=== PATIENT | female | born 1965 | race Caucasian/White ===

== ENCOUNTER 2017-12-23 01:03 | Outpatient (CLI) | payer MEDICARE, SELFPAY ==
--- NOTE | 2017-12-23 08:30 | DI.MAMMO_ITS ---
SYMPTOMS/DIAGNOSIS: SCREENING, Z12.31 MAMMOGRAM: Mammograms were interpreted according to the usual protocol including computer analysis with CAD system, tomosynthesis and C view imaging. The breasts are heterogeneously dense. No dominant mass or clumped intramammary microcalcification is seen. Current examination is compared with the previous examinations including July 2015 and there has been no gross interval change in appearance in comparison with the previous studies. CONCLUSION: No specific evidence of malignancy at this time. Routine screening examinations are suggested at yearly intervals due to the family history of breast carcinoma. Category 1, breast density category C. MQSA ASSESSMENT OF FINDINGS: Negative. Category 1. Patient will receive a letter notifying them of these results. Bi-RADS category C. The breasts are heterogeneously dense, which may obscure small masses.
== END 2017-12-23 01:23 ==
PROVIDERS: PCP Family Medicine; Visit Provider Family Medicine
DX: Z12.31 Encounter for screening mammogram for malignant neoplasm of breast (principal)
CPT/HCPCS: 77063; 77067

== ENCOUNTER 2018-02-05 02:55 | Outpatient (CLI) | payer OTHER, SELFPAY | END 2018-02-05 03:15 | PROVIDERS: PCP Family Medicine; Visit Provider Pediatrics Pediatric Rheumatology | DX: J44.9 Chronic obstructive pulmonary disease, unspecified (principal); Z02.71 Encounter for disability determination | CPT/HCPCS: 94060 ==

== ENCOUNTER 2018-03-13 07:39 | Inpatient (IN) | payer MEDICARE, SELFPAY ==
[2018-03-13] VITALS (115 sets, daily range): BP systolic 88–159; BP diastolic 41–99; PULSE 61–142; RESP 1–44; TEMP 36.8–38.5; O2SAT 89–100
[2018-03-13] MEDS: Albuterol/Ipratropium 3 ML UPD VIAL (07:58)
[2018-03-13 08:03] LABS: Abs Immature Grans 0.06 k/cumm (0.0-0.09); Absolute Neutrophil Count 15.87 k/cumm (1.2-6.7); Basophils % 0.1; HCT 43.6 % (36.0-46.0); HGB 15.1 g/dL (12.0-15.5); Immature Grans % 0.3; Lymphocytes % 3.7; Mean Corp. HGB Concentration 34.6 g/dL (32.0-36.0); Mean Corpuscular Hemoglobin 31.5 pg (27.0-33.0); Mean Platelet Volume 9.4 fL (8.0-11.0); Monocytes % 6.2; Neutrophils % 89.7; Platelet Count 269 x1000/uL (130-400); RBC 4.79 m/cumm (4.00-5.20); RBC Distribution Width 12.2 % (11.7-14.6); White Blood Cell Count 17.69 k/cumm (4.4-10.8)
[2018-03-13 08:04] LABS: Absolute Basophil Count 0.02 k/cumm (0.0-0.2); Absolute Lymphocyte Count 0.65 k/cumm (1.2-3.4)
--- NOTE | 2018-03-13 08:15 | W.ED.GENAD ---
Discharge Plan Disposition Patient Disposition: [facility] INPATIENT Condition: Stable Discharge Details Chief Complaint: RespSymp Clinical Impression: Influenza A, Acute respiratory distress, Acute exacerbation of chronic obstructive pulmonary disease (COPD), Fever Reason For Visit: INFLUENZA,ACUTE RESP,ACUTE COPD EXACERBATION Admit Date/Time: 03/13/18 10:36 Admit Provider: Varsha Ang Attending Provider: Varsha Ang Primary Care Provider: Gay Cooper ED Provider: Karen Ontiveros Discharge Data Discharge Date/Time-TO BE ENTERED AT DEPARTURE: 03/13/18 14:33 Medical Decision Making 52-year-old female with a history of COPD, depression, GERD and chronic tobacco smoker who presents with productive cough for the past 10 days, worse with worsening shortness of breath and fever for the past 2 days. Started on Z-Primitivo and prednisone per PCP 2 days ago. Here today for worsening symptoms. Heart rate 130s. O2 sat 91% on neb treatment. Temp 99.2. Patient given 3 nebs prior to my evaluation and admits to minimal improvement. Scattered wheezing throughout. Purse lip breathing, speaking in 3-4 word sentences. Influenza A positive. As symptoms present for about 10 days, do not see indication for Tamiflu at this time however, may be indicated due to severe COPD exacerbation. Will give another 7.5 mg neb, and Solu-Medrol IV, add troponin. 0910 --patient increased work of breathing went up to the commode, sats decreased to mid 80s. Will place on BiPAP for comfort. CXR not yet done. EKG notes a rate of 133, sinus tachycardia, no acute ST elevation. 0925 -- pt improved on bipap. RR improved. Now febrile at 101.3. Will give a dose of tylenol. Will admit for flu, copd exacerbation. 0930 --discussed with hospitalist -accepts patient for admission. Medical Records Medical records reviewed: Yes I reviewed the patient's medical records. Imaging Data Radiologic Study: Radiologist's impression: XR Chest, 1 View EXAM DATE/TIME: 03/13/2018 9:18 AM FINDINGS: Lungs: Hyperexpanded lung puckett consistent with COPD. No focal consolidation Pleural space: Unremarkable. No pleural effusion. No pneumothorax. Heart/Mediastinum: Unremarkable. No cardiomegaly. Bones/joints: Unremarkable. IMPRESSION: Hyperexpanded lung puckett consistent with COPD No focal consolidation. Lab Data Lab results reviewed: Yes I reviewed the patient's lab results. ECG Data Attestation: I personally reviewed and interpreted this ECG (s) as follows: Interpretation: rate of 133, sinus tachycardia, no acute ST findings. HPI General Mode of arrival: EMS. Date/Time Provider Initiated Documentation: 03/13/18 07:48. Limitations to Documentation: no limitations. Information obtained by: patient. HPI Narrative: Patient is a 52-year-old female with a history of COPD and chronic tobacco smoker who presents with productive cough and shortness of breath for 10 days, and increased fatigue, weakness and fever for the past 2 days. Patient was seen at PCP office 2 days ago for same complaint and diagnosed with COPD exacerbation and possibly pneumonia and was sent home with a prescription for Zithromax and prednisone. Patient states her symptoms have gotten progressively worse since then. She also admits to diarrhea. She denies any chest pain, vomiting. She denies any recent hospital admission. She states she has not taken Motrin or Tylenol this morning. She states she has been eating less than usual for the past few days. She states she has an allergy to meloxicam and diclofenac which causes facial swelling but she is able to take Advil and Motrin. Related Data Home Medications Medication Instructions Recorded Confirmed Aeroeclipse Reusable BAN #1 ea 04/12/13 03/11/18 ProAir HFA 2 puff INHALATION Q6H PRN #3 05/22/16 03/13/18 inhaler ipratropium-albuterol 3 ml UPD TID 04/23/17 03/13/18 omeprazole 20 mg capsule,delayed 20 mg PO DAILY PRN capsule. 11/12/17 03/13/18 release azithromycin 250 mg tablet 250 mg PO DAILY 5 Days #6 tab 03/11/18 03/13/18 prednisone 20 mg tablet 40 mg PO DAILY 5 Days #10 tab 03/11/18 03/13/18 Previous Rx's Medication Instructions Recorded azithromycin 250 mg tablet 250 mg PO DAILY 5 Days #6 tab 03/11/18 prednisone 20 mg tablet 40 mg PO DAILY 5 Days #10 tab 03/11/18 Allergies Allergy/AdvReac Type Severity Reaction Status Date / Time venlafaxine Allergy Severe EYES Unverified 03/13/18 07:55 SWELL; SHAKINESS benzonatate Allergy Intermediate FACIAL Unverified 03/13/18 07:55 SWELLING meloxicam Allergy Intermediate ITCHING Unverified 03/13/18 07:55 diclofenac Allergy Unknown Unverified 03/13/18 07:55 misoprostol Allergy Unknown Unverified 03/13/18 07:55 General Stated Complaint: RespSymp ANDREA: 3 Review of Systems Review of Systems All systems reviewed & are unremarkable except as noted in HPI and below Constitutional Reports as per HPI, Denies chills, Reports fatigue, Reports fever(s), Reports poor appetite and Reports weakness Eyes Denies blurry vision ENT Denies dizziness, Denies sore throat and Denies throat swelling Cardiovascular Denies chest pain and Reports dyspnea Respiratory Reports cough and Reports dyspnea Gastrointestinal Denies abdominal pain, Denies diarrhea and Denies vomiting Genitourinary Denies hematuria and Denies dysuria Musculoskeletal Denies back pain and Denies numbness Integumentary/Breasts Denies lesions and Denies rash Neurologic Denies dizziness, Denies focal weakness, Denies numbness and Reports weakness Endocrine Reports fatigue Allergic/Immunologic Denies throat swelling [facility] Medical History Smoker (Acute) Low back pain (Chronic) Hiatal hernia with GERD (Chronic 04/27/17) Gastric motor function disorder (Chronic) Chronic obstructive lung disease, type A (Chronic) Carpal tunnel syndrome (Resolved) Mammogram abnormal (Resolved) Tinnitus (Resolved) Back pain COPD (chronic obstructive pulmonary disease) Carpal tunnel syndrome of right wrist Depression Dyspepsia Epigastric pain Loose stools Surgical History History of bilateral tubal ligation (Resolved) S/P carpal tunnel release (Resolved) S/P foot surgery (Resolved) Colonoscopy - MAC (04/27/17) EGD - MAC (04/27/17) Ligation of fallopian tube Open Carpal Tunnel release (02/15/16) foot surgery (07/11/11) Family History Mother Diabetes Heart disease Hyperlipidemia Sepsis Asthma Father Neoplasm Sister Neoplasm Sister Chronic obstructive lung disease Asthma Brother No problems noted. Brother No problems noted. Brother No problems noted. Maternal Grandfather Stroke Paternal Grandfather Pulmonary tuberculosis Maternal Grandmother Heart disease Emphysema lung Asthma Paternal Grandmother Neoplasm Son No problems noted. Daughter Substance abuse Depression Neoplasm Social History household members: other details: 3 current occupational status: employed current occupation: [employer] pets and animals: Yes pets and animals: cat(s) and dog(s) frequency: daily duration: 15-30 minutes/day Smoking/Tobacco Use Status: Current every day tobacco type: cigarettes alcohol intake: current alcohol intake frequency: a few times a month Alcohol type: beer substance use type: does not use sean/alevism: No preference special sean needs: No Exam Const General: cooperative Orientation: alert, awake and oriented x3 HENMT Head: normal to inspection Ears: hearing grossly normal bilaterally, external ears normal and TM's normal bilaterally General nose exam: external nose normal Face and sinus: normal facial exam Mouth: oral mucosae normal Eyes General: appearance normal, both eyes and all related structures Eyelids: eyelids normal EOM: EOM intact bilaterally Neck Neck: normal visual inspection Lymphatic: no lymphadenopathy noted Chest Chest: normal inspection of the chest Resp Effort & Inspection: normal respiratory effort, pursed lip breathing and other (Speaking in 3-4 word sentences) Auscultation: rhonchi and wheezes Cardio Rate: tachycardic Rhythm: regular rhythm GI Inspection: normal to inspection Palpation: soft, not firm, no guarding, no hepatosplenomegaly, no masses and nontender Auscultation: normal bowel sounds Skin General skin exam: no rashes or lesions noted Neuro General: alert and awake Cognition: normal cognition Speech: speech normal Gait: normal gait Motor: muscle tone normal throughout Sensory Exam: no sensory deficits noted Extrem General: normal to inspection, full ROM and no edema Psych Appearance: grossly normal Mental Status: mental status grossly normal Speech and Movement: speech and movement normal Affect: normal affect Thought Process: normal Course Vital Signs Temperature 99.2 F 03/13/18 07:42 Pulse 130 H 03/13/18 07:42 Respiratory Rate 20 03/13/18 07:42 Blood Pressure 159/84 H 03/13/18 07:42 Pulse Oximetry 91 L 03/13/18 07:42 Temperature 99.2 F 03/13/18 07:42 Temperature Source Temporal Artery Scan 03/13/18 07:42 Pulse 117 H 03/13/18 07:58 Respiratory Rate 31 H 03/13/18 07:58 Respiratory Effort Labored 03/13/18 07:54 Respiratory Depth Shallow 03/13/18 07:54 Blood Pressure 159/84 H 03/13/18 07:42 Blood Pressure Position Sitting 03/13/18 07:42 Pulse Oximetry 98 03/13/18 07:58 Oxygen Delivery Method Aerosol Mask 03/13/18 07:58 Oxygen Flow Rate 6 03/13/18 07:58 Lab/Test Results Lab/Test Results: 03/13/18 07:43 Nasopharynx Influenza Types A,B Antigen - Final Laboratory Tests Range/Units 03/13/18 07:52 WBC (4.4-10.8) k/cumm 17.69 H RBC (4.00-5.20) m/cumm 4.79 Hgb (12.0-15.5) g/dL 15.1 Hct (36.0-46.0) % 43.6 MCV (80-95) fL 91.0 MCH (27.0-33.0) pg 31.5 MCHC (32.0-36.0) g/dL 34.6 RDW (11.7-14.6) % 12.2 Plt Count (130-400) x1000/uL 269 MPV (8.0-11.0) fL 9.4 Immature Gran % 0.3 Neutrophils % 89.7 Lymphocytes % 3.7 Monocytes % 6.2 Eosinophils % 0.0 Basophils % 0.1 Absolute Neutrophils (1.2-6.7) k/cumm 15.87 H Absolute Lymphocytes (1.2-3.4) k/cumm 0.65 L Absolute Monocytes (0.11-0.7) k/cumm 1.10 H Absolute Eosinophils (0.0-0.7) k/cumm 0.00 Absolute Basophils (0.0-0.2) k/cumm 0.02
[2018-03-13 08:18] LABS: ALT 34 U/L (12-78); AST 26 U/L (15-37); Albumin 3.8 g/dL (3.4-5.0); Alkaline Phosphatase 60 U/L (46-116); Anion Gap 9.4 mmol/L (3-11); BUN 20 mg/dL (7-18); Bilirubin, Total 0.3 mg/dL (0.2-1.0); CO2 27.6 mmol/L (21.0-32.0); CREATININE 0.78 mg/dL (0.55-1.02); Calcium 9.5 mg/dL (8.5-10.1); Chloride 98 mmol/L (98-107); Glucose 112 mg/dL (70-100); Magnesium 2.1 mg/dL (1.8-2.4); Sodium 135 mmol/L (136-145); Total Protein 8.2 g/dL (6.4-8.2)
[2018-03-13] MEDS: Normal Saline Flush 10 ML SYR IVP ×3 (08:21→23:31)
[2018-03-13] MEDS: Albuterol 2.5 MG/3 ML INH SOLN VIAL 7.5 MG UPD (08:21)
[2018-03-13] MEDS: Normal Saline 250 ML 500 ML IV (08:22)
[2018-03-13] MEDS: methylPREDNISolone SUCC 125 MG VIAL IVP (08:22)
[2018-03-13 08:38] LABS: Troponin I < 0.02 ng/mL (0.00-0.06)
--- NOTE | 2018-03-13 09:18 | DI.RAD_ITS ---
SYMPTOM/DIAGNOSIS: SOB, COUGH, R/O PNEUMONIA PORTABLE CHEST: 13 MAR 2018 Comparison is made with 24 Mar 2017. The heart size is normal. Leads overlie the chest. The lungs are hyperinflated but clear. No infiltrate, effusion or pulmonary edema seen. IMPRESSION: Emphysematous changes. No acute abnormality.
[2018-03-13] MEDS: Acetaminophen 500 MG TAB (09:27)
--- NOTE | 2018-03-13 09:38 | DI.VRAD_ITS ---
EXAM: XR Chest, 1 View EXAM DATE/TIME: 03/13/2018 9:18 AM CLINICAL HISTORY: 52 years old, female; Signs and symptoms; Cough and shortness of breath TECHNIQUE: XR of the chest, 1 view. COMPARISON: CR CHEST 2 VIEWS PA,LAT 03/24/2017 10:13 AM FINDINGS: Lungs: Hyperexpanded lung puckett consistent with COPD. No focal consolidation Pleural space: Unremarkable. No pleural effusion. No pneumothorax. Heart/Mediastinum: Unremarkable. No cardiomegaly. Bones/joints: Unremarkable. IMPRESSION: Hyperexpanded lung puckett consistent with COPD No focal consolidation Dictated and Authenticated by: Mehreen Alvarez MD. Ordering:DALTON Jones MD
[2018-03-13] MEDS: Oseltamivir 75 MG CAP PO ×2 (10:01→19:56)
[2018-03-13] MEDS: AZITHROMYCIN 500 MG in Normal Saline 250 ML 250 MG IVPB (10:03)
[2018-03-13 11:49] LABS: BE -0.9 mmol/L (-3-3); HCO3 24 mmol/L (22-28); pCO2 41 mmHg (34-47); pH 7.38 (7.35-7.45); pO2 68 mmHg (83-108); sO2 93 % (94-98); tCO2 22 mmol/L (22-29)
[2018-03-13 11:52] LABS: FIO2 30 %; Site Right Brachial
[2018-03-13 11:53] LABS: Lactate-non-spesis 0.6 mmol/l (0.6-1.4)
--- NOTE | 2018-03-13 12:28 | HPE_ITS ---
Date of service: 03/13/18 Time of Service: 12:26 Assessment and Plan (1) Acute respiratory failure with hypoxia: Current visit: Yes Status: Acute In setting of acute influenza A infection, acute exacerbation of COPD, in addition to likely bacterial superinfection (no evidence of PNA on CXR; bronchitis is most likely). Patient is being admitted to the ICU for CPAP/close respiratory watch x 24 hours. Continue azithromycin/rocephin initiated in the ED. Continue tamiflu. Continue systemic steroids; start symbicort, mucinex. (2) Sepsis: Current visit: Yes Status: Acute Due to acute bronchitis and influenza A. Continue empriric abx (rocephin/azithromycin) and IVF. Lactate 0.6 (wnl). Monitor BP's (on the lower side). Aggressive IVF. (3) COPD with acute exacerbation: Current visit: Yes Status: Acute As above (4) Influenza A: Current visit: Yes Status: Acute As above (5) Hiatal hernia with GERD: Current visit: No Status: Chronic PO protonix (6) Smoker: Current visit: No Status: Acute Smoking cessation advised. Written for prn nicotine patch (7) Discharge planning issues: Current visit: Yes Status: Acute Full code (8) DVT prophylaxis: Current visit: Yes Status: Acute Lovenox History of Present Illness Chief Complaint: I couldn't breathe Narrative: Ms Clark is a 52 year old female with PMHx of non-oxygen dependent COPD, tobacco abuse, GERD, depression, who was brought to [facility] ED today by ambulance for shortness of breath and respiratory distress. Per patient, she started to feel sick actually only 2 days ago (), which was the day she went to see her PCP. She was diagnosed with a likely pneumonia, given a Zpack and a burst of prednisone. She states that she continued to feel progressively worse at home, with fevers, cough now productive of yellow sputum since yesterday, wheezing. She did not get relief from the duoneb treatments which she tried 5 times at home in the last 24 hours. Her shortness of breath became severe today at 3 am. EMS found the patient hypoxic to 88% on room air and initiated O2 by nasal canula (4L) with O2 sats increasing to 92%. In the ED, she again was tried on room air with O2 sat of 88%. She desaturated down to 86% with minimal exertion and with increased work of breathing (RR 42), necessitating BiPAP. The patient is examined while is on BiPAP, states she is more comfortable and less short of breath. She tested positive for Influenza A. CXR did not reveal pneumonia. She is being admitted to [facility] ICU for further care. Review of Systems Review of Systems 12 systems reviewed. Pertinent positives and negatives are as per HPI. Additionally, the patient's granddaughter is also sick - likely with flu. She denies sore throat, runny nose, chest pain, palpitations, nausea. She has been having fevers and chills and is febrile in the ER. [facility] Medical History Smoker (Acute) Low back pain (Chronic) Hiatal hernia with GERD (Chronic 04/27/17) Gastric motor function disorder (Chronic) Chronic obstructive lung disease, type A (Chronic) Carpal tunnel syndrome (Resolved) Mammogram abnormal (Resolved) Tinnitus (Resolved) Back pain COPD (chronic obstructive pulmonary disease) Carpal tunnel syndrome of right wrist Depression Dyspepsia Epigastric pain Loose stools Surgical History History of bilateral tubal ligation (Resolved) S/P carpal tunnel release (Resolved) S/P foot surgery (Resolved) Colonoscopy - MAC (04/27/17) EGD - MAC (04/27/17) Ligation of fallopian tube Open Carpal Tunnel release (02/15/16) foot surgery (07/11/11) Family History Mother Diabetes Heart disease Hyperlipidemia Sepsis Asthma Father Neoplasm Sister Neoplasm Sister Chronic obstructive lung disease Asthma Brother No problems noted. Brother No problems noted. Brother No problems noted. Maternal Grandfather Stroke Paternal Grandfather Pulmonary tuberculosis Maternal Grandmother Heart disease Emphysema lung Asthma Paternal Grandmother Neoplasm Son No problems noted. Daughter Substance abuse Depression Neoplasm Social History household members: other details: 3 current occupational status: employed current occupation: [employer] pets and animals: Yes pets and animals: cat(s) and dog(s) frequency: daily duration: 15-30 minutes/day Smoking/Tobacco Use Status: Current every day tobacco type: cigarettes alcohol intake: current alcohol intake frequency: a few times a month Alcohol type: beer substance use type: does not use sean/hindu: No preference special sean needs: No Meds Home Medications Medication Instructions Recorded Confirmed Type Aeroeclipse Reusable BAN #1 ea 04/12/13 03/11/18 History ProAir HFA 2 puff INHALATION Q6H PRN #3 05/22/16 03/13/18 History inhaler ipratropium-albuterol 3 ml UPD TID 04/23/17 03/13/18 History omeprazole 20 mg capsule,delayed 20 mg PO DAILY PRN capsule. 11/12/17 03/13/18 History release azithromycin 250 mg tablet 250 mg PO DAILY 5 Days #6 tab 03/11/18 03/13/18 Rx prednisone 20 mg tablet 40 mg PO DAILY 5 Days #10 tab 03/11/18 03/13/18 Rx Allergies Allergy/AdvReac Type Severity Reaction Status Date / Time venlafaxine Allergy Severe EYES Unverified 03/13/18 07:55 SWELL; SHAKINESS benzonatate Allergy Intermediate FACIAL Unverified 03/13/18 07:55 SWELLING meloxicam Allergy Intermediate ITCHING Unverified 03/13/18 07:55 diclofenac Allergy Unknown Unverified 03/13/18 07:55 misoprostol Allergy Unknown Unverified 03/13/18 07:55 Exam Narrative Exam Narrative: General: Pleasant middle Aged female, sitting up in bed, on BiPAP, able to provide history, looks comfortable. Feels warm to touch. Neurologic: A&Ox3, no focal deficits Psychiatric: appropriate speech pattern/content Skin: intact HEENT: Atraumatic, normocephalic, dry MM, EOMI, No submandibular or cervical lymphadenopathy, no goiter or JVD Heart: RRR, tachycardic Lungs: Wheezing on expiration B GI: abdomen soft, nontender, nondistended Extremities: no e/c/c BLE's, 2+ pedal pulses Bilaterally Results Imaging Additional studies: CXR: Hyperexpanded lung puckett consistent with COPD No focal consolidation EKG: Sinus tachycardia, HR 133, nonspecific ST changes Labs : 03/13/18 07:52 03/13/18 07:52 Laboratory Results - last 24 hr 03/13/18 03/13/18 03/13/18 07:52 07:52 07:52 WBC 17.69 H RBC 4.79 Hgb 15.1 Hct 43.6 MCV 91.0 MCH 31.5 MCHC 34.6 RDW 12.2 Plt Count 269 MPV 9.4 Immature Gran % 0.3 Neutrophils % 89.7 Lymphocytes % 3.7 Monocytes % 6.2 Eosinophils % 0.0 Basophils % 0.1 Absolute Neutrophils 15.87 H Absolute Lymphocytes 0.65 L Absolute Monocytes 1.10 H Absolute Eosinophils 0.00 Absolute Basophils 0.02 Sample Site pCO2 pO2 O2 Saturation ABG pH ABG HCO3 ABG Total CO2 ABG Base Excess FiO2 Sodium 135 L Potassium 4.0 Chloride 98 Carbon Dioxide 27.6 Anion Gap 9.4 BUN 20 H Creatinine 0.78 Estimated GFR/1.73 m2 >= 60.00 Glucose 112 H Lactate Calcium 9.5 Magnesium 2.1 Total Bilirubin 0.3 AST 26 ALT 34 Alkaline Phosphatase 60 Troponin I < 0.02 Total Protein 8.2 Albumin 3.8 03/13/18 03/13/18 11:16 11:45 WBC RBC Hgb Hct MCV MCH MCHC RDW Plt Count MPV Immature Gran % Neutrophils % Lymphocytes % Monocytes % Eosinophils % Basophils % Absolute Neutrophils Absolute Lymphocytes Absolute Monocytes Absolute Eosinophils Absolute Basophils Sample Site Right brachial pCO2 41 pO2 68 L O2 Saturation 93 L ABG pH 7.38 ABG HCO3 24 ABG Total CO2 22 ABG Base Excess -0.9 FiO2 30 Sodium Potassium Chloride Carbon Dioxide Anion Gap BUN Creatinine Estimated GFR/1.73 m2 Glucose Lactate 0.6 Calcium Magnesium Total Bilirubin AST ALT Alkaline Phosphatase Troponin I Total Protein Albumin Last Vital Signs Temp 38.5 C H 03/13/18 09:27 Pulse 118 H 03/13/18 10:46 Resp 19 03/13/18 10:46 BP 98/83 L 03/13/18 10:46 Pulse Ox 95 03/13/18 10:46
[2018-03-13] MEDS: Normal Saline 1,000 ML 1000 ML IV (12:32)
[2018-03-13] MEDS: Normal Saline 1,000 ML 125 ML IV ×2 (16:19→23:37)
[2018-03-13] MEDS: methylPREDNISolone SUCC 125 MG VIAL 80 MG IVP ×2 (16:20→23:31)
[2018-03-13] MEDS: Enoxaparin 40 MG/0.4 ML SYR SC (16:21)
[2018-03-13] MEDS: Albuterol/Ipratropium 3 ML UPD VIAL UPD ×2 (17:38→23:31)
[2018-03-13] MEDS: Acetaminophen 325 MG TAB PO (17:39)
[2018-03-13] MEDS: Budesonide/Formoterol 160/4.5 6 GM 60 PUFF INH IH (19:56)
[2018-03-13] MEDS: guaiFENesin 600 MG TABCR PO (19:56)
[2018-03-14] VITALS (40 sets, daily range): BP systolic 98–144; BP diastolic 58–75; PULSE 56–86; RESP 1–33; TEMP 36.4–37.4; O2SAT 91–100
[2018-03-14] MEDS: Albuterol/Ipratropium 3 ML UPD VIAL UPD ×4 (05:43→23:25)
[2018-03-14 06:13] LABS: Abs Immature Grans 0.04 k/cumm (0.0-0.09); Absolute Basophil Count 0.01 k/cumm (0.0-0.2); Absolute Lymphocyte Count 0.64 k/cumm (1.2-3.4); Absolute Monocyte Count 0.34 k/cumm (0.11-0.7); Absolute Neutrophil Count 11.13 k/cumm (1.2-6.7); Basophils % 0.1; HCT 38.7 % (36.0-46.0); HGB 12.8 g/dL (12.0-15.5); Immature Grans % 0.3; Lymphocytes % 5.3; Mean Corp. HGB Concentration 33.1 g/dL (32.0-36.0); Mean Corpuscular Hemoglobin 31.3 pg (27.0-33.0); Mean Corpuscular Volume 94.6 fL (80-95); Mean Platelet Volume 9.7 fL (8.0-11.0); Monocytes % 2.8; Neutrophils % 91.5; Platelet Count 225 x1000/uL (130-400); RBC 4.09 m/cumm (4.00-5.20); RBC Distribution Width 12.2 % (11.7-14.6); White Blood Cell Count 12.16 k/cumm (4.4-10.8)
[2018-03-14 06:21] LABS: Anion Gap 4.5 mmol/L (3-11); BUN 15 mg/dL (7-18); CO2 28.5 mmol/L (21.0-32.0); CREATININE 0.53 mg/dL (0.55-1.02); Calcium 8.5 mg/dL (8.5-10.1); Chloride 105 mmol/L (98-107); Glucose 150 mg/dL (70-100); Potassium 4.5 mmol/L (3.5-5.1); Sodium 138 mmol/L (136-145)
[2018-03-14] MEDS: Normal Saline 1,000 ML 125 ML IV (07:46)
[2018-03-14] MEDS: guaiFENesin 600 MG TABCR PO ×2 (08:46→19:40)
[2018-03-14] MEDS: Pantoprazole 40 MG TABCR PO (08:46)
[2018-03-14] MEDS: methylPREDNISolone SUCC 125 MG VIAL 80 MG IVP ×3 (08:47→23:25)
[2018-03-14] MEDS: Oseltamivir 75 MG CAP PO ×2 (08:47→19:41)
[2018-03-14] MEDS: Albuterol 2.5 MG/3 ML INH SOLN VIAL UPD (09:31)
[2018-03-14] MEDS: Budesonide/Formoterol 160/4.5 6 GM 60 PUFF INH IH ×2 (09:52→19:40)
[2018-03-14] MEDS: AZITHROMYCIN 500 MG in Normal Saline 250 ML 250 MG IVPB (10:16)
--- NOTE | 2018-03-14 10:38 | PHARADMIT ---
Addendum entered by Sonja Singh 03/16/18 16:13: Pharmacy Note Subjective much better yesterday per morning report Objective VS-okay electrolytes okay Assessment azithromycin and ceftriaxone continue (day 4) methylprednisolone changed to PO prednisone Plan watch for abx to change to PO, home tomorrow? Original Note: Admission Pharmacy Clinical Review INFLUENZA, ACUTE RESP, ACUTE COPD EXACERBATION Code Status Full Code Current Weight Wgt-43 kg Renally Cleared and Narrow Therapeutic Index Meds CrCl~ 54.5 mL/min Meds-OK QTc Value / Action Taken QTc-420 NA BP Control, Fever BP- 111/68 tMAX- 36.8c Electrolytes reviewed Na- 138 K+4.5 Mag- 2.0 DVT Prophylaxis LOVENOX Opiate Usage / Scheduled Bowel Regimen Ordered yES yES Plt/SCr for Heparin / Enoxaparin Plts-225 SCr-0.53 INR for Warfarin na H/H stable, WBC/Bands H&H- 12.8/38.7 WBC- 12.16 Antibiotic appropriateness Azithromycin, Rocephin, Tamiflu Cultures and Sensitivities Sputum, Blood Flu-Positive Surgical ABX d/c within 24 hr NA DM control / Insulin Dosing BG- 150 Heart Failure (Check EF%) (PATRICIA's, B-Block, Diuretics) NONE IV to PO Switch No Home Meds Reviewed yES Home Meds Not Ordered ORDERED Comments
--- NOTE | 2018-03-14 10:48 | PDOC.CMIN ---
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 PREVIOUS FUNCTIONAL STATUS/SOCIAL/FAMILY SUPPORTS:: Juhi lives with her spouse in [facility]. She has 2 children, 9 grandchildren. She is independent with ADLs, and transportation. She was in [employer] in the past and worked at the [employer] for 9 years. CURRENT FUNCTIONAL STATUS:: Juhi is transition from the ICU to the medical surgical unit. She states she is feeling better from time of admission. She was able to see her primary care before admission to [facility]. She states she has been ill since . She did try to manage her symptoms at home prior to being admitted to the hospital. ADVANCE DIRECTIVES:: None on file would like to complete during this admission Has patient been provided with information about the portal?: Yes Did the patient sign up for the portal?: No (Declines) CODE STATUS:: Full Code INSURANCE COVERAGE / FINANCIAL ISSUES:: Medicare CURRENT HOME/COMMUNITY SERVICES/EQUIPMENT:: Nebulizer through [employer], has a cane for ambulation if needed. PRIMARY CARE PHYSICIAN:: POTENTIAL DISCHARGE NEEDS:: Follow-up appointment scheduled with primary care provider, information r/t disease specific treatment. PATIENT/FAMILY EDUCATION NEEDS:: Discharge education, limitations, follow-up plan of care, asked me 3 and self-management discussion. ANTICIPATED BARRIERS TO DISCHARGE:: None identified TRANSPORTATION:: Via private car with spouse at time of discharge. PLAN:: Juhi is transition to the medical surgical unit, she will discharge home when medically ready per provider. Anticipate no additional services at time of discharge. She is on IV antibiotics, and steroids plan will be to transition her to oral antibiotics prior to return home. CM to continue to provide support discharge planning.
--- NOTE | 2018-03-14 10:57 | INITIAL_ITS ---
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 PREVIOUS FUNCTIONAL STATUS/SOCIAL/FAMILY SUPPORTS:: Juhi lives with her spouse in [facility]. She has 2 children, 9 grandchildren. She is independent with ADLs, and transportation. She was in [employer] in the past and worked at the [employer] for 9 years. CURRENT FUNCTIONAL STATUS:: Juhi is transition from the ICU to the medical surgical unit. She states she is feeling better from time of admission. She was able to see her primary care before admission to [facility]. She states she has been ill since . She did try to manage her symptoms at home prior to being admitted to the hospital. ADVANCE DIRECTIVES:: None on file would like to complete during this admission Has patient been provided with information about the portal?: Yes Did the patient sign up for the portal?: No (Declines) CODE STATUS:: Full Code INSURANCE COVERAGE / FINANCIAL ISSUES:: Medicare CURRENT HOME/COMMUNITY SERVICES/EQUIPMENT:: Nebulizer through [employer], has a cane for ambulation if needed. PRIMARY CARE PHYSICIAN:: POTENTIAL DISCHARGE NEEDS:: Follow-up appointment scheduled with primary care provider, information r/t disease specific treatment. PATIENT/FAMILY EDUCATION NEEDS:: Discharge education, limitations, follow-up plan of care, asked me 3 and self-management discussion. ANTICIPATED BARRIERS TO DISCHARGE:: None identified TRANSPORTATION:: Via private car with spouse at time of discharge. PLAN:: Juhi is transition to the medical surgical unit, she will discharge home when medically ready per provider. Anticipate no additional services at time of discharge. She is on IV antibiotics, and steroids plan will be to transition her to oral antibiotics prior to return home. CM to continue to provide support discharge planning.
--- NOTE | 2018-03-14 14:23 | W.PM.PROGNOT ---
Date of Service Date of service: 03/14/18 Time of Service: 09:30 Assessment and Plan (1) Acute respiratory failure with hypoxia: Current visit: Yes Status: Acute In setting of acute influenza A infection, acute exacerbation of COPD, in addition to likely bacterial superinfection (no evidence of PNA on CXR; bronchitis is most likely). Improving. Ok to transfer out of ICU. Continue azithromycin/rocephin (Day 2) Continue tamiflu (Day 2) Continue systemic steroids, symbicort, nebs. Repeat CXR in am. (2) Sepsis: Current visit: Yes Status: Acute Due to acute bronchitis and influenza A. Continue empriric abx (rocephin/azithromycin). Decrease IVF as BP's are better. (3) COPD with acute exacerbation: Current visit: Yes Status: Acute As above (4) Influenza A: Current visit: Yes Status: Acute As above (5) Hiatal hernia with GERD: Current visit: No Status: Chronic PO protonix (6) Smoker: Current visit: No Status: Acute Smoking cessation advised. Written for prn nicotine patch (7) Discharge planning issues: Current visit: Yes Status: Acute Full code Transfer out of ICU (8) DVT prophylaxis: Current visit: Yes Status: Acute Lovenox Subjective Interval history since last seen: The patient states that she feels a little bit better today. She was able to be transitioned to 3L of O2 by NE overnight and is now on 2L, saturating 88%. She still has shortness of breath. Denies dizziness, chest pain, nausea, vomiting. Exam Narrative Exam Narrative: General: Pleasant middle Aged female, laying flat in bed, mildly tachypneic. Neurologic: A&Ox3, no focal deficits HEENT: Atraumatic, normocephalic, moist MM, EOMI, No submandibular or cervical lymphadenopathy, no goiter or JVD Heart: RRR, no m/r/g Lungs: Diminished breath sounds B - no wheezing heard today GI: abdomen soft, nontender, nondistended Extremities: no e/c/c BLE's, 2+ pedal pulses Bilaterally Objective Objective Clinical Data: Abnormal lab results 03/14/18 03/14/18 Range/Units 05:42 05:42 WBC 12.16 H D (4.4-10.8) k/cumm Absolute Neutrophils 11.13 H (1.2-6.7) k/cumm Absolute Lymphocytes 0.64 L (1.2-3.4) k/cumm Creatinine 0.53 L (0.55-1.02) mg/dL Glucose 150 H (70-100) mg/dL Vital Signs Temperature 36.6 C 03/14/18 08:57 Temperature Source Temporal Artery Scan 03/14/18 08:57 Pulse 72 03/14/18 09:37 Pulse 84 03/14/18 10:10 Respiratory Rate 18 03/14/18 10:10 Respiratory Effort 03/14/18 08:57 Respiratory Depth Normal 03/14/18 08:57 Respiratory Pattern Normal 03/14/18 08:57 Blood Pressure 111/68 03/14/18 08:00 Blood Pressure Mean 79 03/14/18 08:00 Blood Pressure Position Supine 03/13/18 19:55 Pulse Oximetry 93 L 03/14/18 10:10 Oxygen Delivery Method Nasal Cannula 03/14/18 06:16 Oxygen Flow Rate 2 03/14/18 06:16 Fraction of Inspired Oxygen (FIO2) 30 03/13/18 10:26 Pain Level 0 03/14/18 10:30 Intake & Output 03/13/18 03/14/18 03/14/18 23:59 11:59 23:59 Intake Total 2004.5 / 2504.5 1965 / 2215 250 / 2215 Output Total 170 / 170 1500 / 1500 Balance 1834.5 / 2334.5 465 / 715 250 / 715 Weight 41.8 kg 43 kg Intake: IV 1754.5 / 2254.5 1425 / 1675 250 / 1675 Oral 250 / 250 540 / 540 Output: Urine 170 / 170 1500 / 1500 Other: Urine Color Light Rocio Yellow Urine Appearance Clear Clear Urine Odor Strong Strong Comment Pt notes that she had a tubal ligation 36 years ago. mixed with stool Stool Size Small Stool Characteristics Liquid Voiding Methods Bedside Commode Bedside Commode Laboratory Results WBC 12.16 k/cumm (4.4-10.8) H D 03/14/18 05:42 RBC 4.09 m/cumm (4.00-5.20) 03/14/18 05:42 Hgb 12.8 g/dL (12.0-15.5) D 03/14/18 05:42 Hct 38.7 % (36.0-46.0) 03/14/18 05:42 MCV 94.6 fL (80-95) D 03/14/18 05:42 MCH 31.3 pg (27.0-33.0) 03/14/18 05:42 MCHC 33.1 g/dL (32.0-36.0) 03/14/18 05:42 RDW 12.2 % (11.7-14.6) 03/14/18 05:42 Plt Count 225 x1000/uL (130-400) 03/14/18 05:42 MPV 9.7 fL (8.0-11.0) 03/14/18 05:42 Immature Gran % 0.3 03/14/18 05:42 Neutrophils % 91.5 03/14/18 05:42 Lymphocytes % 5.3 03/14/18 05:42 Monocytes % 2.8 03/14/18 05:42 Eosinophils % 0.0 03/14/18 05:42 Basophils % 0.1 03/14/18 05:42 Absolute Neutrophils 11.13 k/cumm (1.2-6.7) H 03/14/18 05:42 Absolute Lymphocytes 0.64 k/cumm (1.2-3.4) L 03/14/18 05:42 Absolute Monocytes 0.34 k/cumm (0.11-0.7) 03/14/18 05:42 Absolute Eosinophils 0.00 k/cumm (0.0-0.7) 03/14/18 05:42 Absolute Basophils 0.01 k/cumm (0.0-0.2) 03/14/18 05:42 Sample Site Right brachial 03/13/18 11:16 pCO2 41 mmHg (34-47) 03/13/18 11:16 pO2 68 mmHg (83-108) L 03/13/18 11:16 O2 Saturation 93 % (94-98) L 03/13/18 11:16 ABG pH 7.38 (7.35-7.45) 03/13/18 11:16 ABG HCO3 24 mmol/L (22-28) 03/13/18 11:16 ABG Total CO2 22 mmol/L (22-29) 03/13/18 11:16 ABG Base Excess -0.9 mmol/L (-3-3) 03/13/18 11:16 FiO2 30 % 03/13/18 11:16 Sodium 138 mmol/L (136-145) 03/14/18 05:42 Potassium 4.5 mmol/L (3.5-5.1) 03/14/18 05:42 Chloride 105 mmol/L (98-107) 03/14/18 05:42 Carbon Dioxide 28.5 mmol/L (21.0-32.0) 03/14/18 05:42 Anion Gap 4.5 mmol/L (3-11) 03/14/18 05:42 BUN 15 mg/dL (7-18) 03/14/18 05:42 Creatinine 0.53 mg/dL (0.55-1.02) L 03/14/18 05:42 Estimated GFR/1.73 m2 >= 60.00 (mL/min/1.73m2) 03/14/18 05:42 Glucose 150 mg/dL (70-100) H 03/14/18 05:42 Lactate 0.6 mmol/l (0.6-1.4) 03/13/18 11:45 Calcium 8.5 mg/dL (8.5-10.1) 03/14/18 05:42 Magnesium 2.0 mg/dL (1.8-2.4) 03/14/18 05:42 Total Bilirubin 0.3 mg/dL (0.2-1.0) 03/13/18 07:52 AST 26 U/L (15-37) 03/13/18 07:52 ALT 34 U/L (12-78) 03/13/18 07:52 Alkaline Phosphatase 60 U/L (46-116) 03/13/18 07:52 Troponin I < 0.02 ng/mL (0.00-0.06) 03/13/18 07:52 Total Protein 8.2 g/dL (6.4-8.2) 03/13/18 07:52 Albumin 3.8 g/dL (3.4-5.0) 03/13/18 07:52
[2018-03-14] MEDS: Normal Saline Flush 10 ML SYR IVP (15:37)
[2018-03-14] MEDS: Enoxaparin 40 MG/0.4 ML SYR SC (15:38)
[2018-03-14] MEDS: Normal Saline 1,000 ML 75 ML IV (19:49)
[2018-03-15] VITALS (11 sets, daily range): BP systolic 122–148; BP diastolic 71–89; PULSE 67–80; RESP 4–22; TEMP 36.3–37.3; O2SAT 92–98
[2018-03-15] MEDS: Pantoprazole 40 MG TABCR PO (06:31)
[2018-03-15] MEDS: Albuterol/Ipratropium 3 ML UPD VIAL UPD ×3 (06:31→18:34)
[2018-03-15 07:16] LABS: Abs Immature Grans 0.03 k/cumm (0.0-0.09); HCT 36.3 % (36.0-46.0); HGB 11.9 g/dL (12.0-15.5); Mean Corp. HGB Concentration 32.8 g/dL (32.0-36.0); Mean Corpuscular Hemoglobin 31.2 pg (27.0-33.0); Mean Platelet Volume 9.8 fL (8.0-11.0); Platelet Count 242 x1000/uL (130-400); RBC 3.82 m/cumm (4.00-5.20); RBC Distribution Width 12.3 % (11.7-14.6); White Blood Cell Count 8.09 k/cumm (4.4-10.8)
[2018-03-15 07:25] LABS: Anion Gap 6.5 mmol/L (3-11); BUN 12 mg/dL (7-18); CO2 29.5 mmol/L (21.0-32.0); CREATININE 0.47 mg/dL (0.55-1.02); Calcium 8.5 mg/dL (8.5-10.1); Chloride 106 mmol/L (98-107); Glucose 148 mg/dL (70-100); Sodium 142 mmol/L (136-145)
[2018-03-15] MEDS: guaiFENesin 600 MG TABCR PO ×2 (07:41→20:53)
[2018-03-15] MEDS: Oseltamivir 75 MG CAP PO ×2 (07:41→20:53)
[2018-03-15] MEDS: Normal Saline Flush 10 ML SYR IVP ×2 (07:41→15:55)
[2018-03-15] MEDS: methylPREDNISolone SUCC 125 MG VIAL 80 MG IVP (07:42)
[2018-03-15] MEDS: Normal Saline 1,000 ML 75 ML IV (07:43)
[2018-03-15 07:50] LABS: Absolute Lymphocyte Count 0.97 k/cumm (1.2-3.4); Absolute Monocyte Count 0.57 k/cumm (0.11-0.7); Absolute Neutrophil Count 6.55 k/cumm (1.2-6.7); Atypical Lymphocytes % 4; Diff Comment Manual Differential; Polychromasia Present
--- NOTE | 2018-03-15 07:54 | DI.VRAD_ITS ---
EXAM: XR Chest, 1 View EXAM DATE/TIME: 03/15/2018 12:00 AM CLINICAL HISTORY: 52 years old, female; Signs and symptoms; Other: Acute hypoxic resp failure, f/u TECHNIQUE: XR of the chest, 1 view. COMPARISON: SC XR PORTABLE CHEST AP 03/13/2018 9:28 AM FINDINGS: Lungs: Hyperinflation compatible with COPD . Probable patchy atelectasis at the lung bases Pleural space: Unremarkable. No pleural effusion. No pneumothorax. Heart/Mediastinum: Unremarkable. No cardiomegaly. Bones/joints: Unremarkable. IMPRESSION: Hyperinflation compatible with COPD . Dictated and Authenticated by: Lion Medina MD. Ordering:MIAH Maddox MD
--- NOTE | 2018-03-15 08:30 | DI.RAD_ITS ---
SYMPTOM/DIAGNOSIS: ACUTE HYPOXIC RESP FAILURE, FOLLOW UP PORTABLE CHEST: 15 MAR 2018 Comparison is made with 13 Mar 2018. The heart size is normal. The lungs are again noted to be hyperinflated. No infiltrate or effusion is seen. There is no evidence of pneumothorax. IMPRESSION: Emphysematous changes. No acute abnormality.
[2018-03-15] MEDS: Budesonide/Formoterol 160/4.5 6 GM 60 PUFF INH IH ×2 (09:10→20:53)
[2018-03-15] MEDS: AZITHROMYCIN 500 MG in Normal Saline 250 ML 250 MG IVPB (10:09)
--- NOTE | 2018-03-15 15:04 | W.PM.PROGNOT ---
Date of Service Date of service: 03/15/18 Time of Service: 15:04 Assessment and Plan (1) Acute respiratory failure with hypoxia: Current visit: Yes Status: Acute In setting of acute influenza A infection, acute exacerbation of COPD, and acute bacterial bronchitis. There is no evidence of PNA on today's CXR again. Improved markedly. Continue azithromycin/rocephin (Day 3) Continue tamiflu (Day 4) Continue, symbicort, nebs. Start to taper IV steroids. (2) Sepsis: Current visit: Yes Status: Resolved Due to acute bronchitis and influenza A. Continue rocephin/azithromycin. D/c IVF. (3) COPD with acute exacerbation: Current visit: Yes Status: Acute As above (4) Influenza A: Current visit: Yes Status: Acute As above (5) Hiatal hernia with GERD: Current visit: No Status: Chronic Continue PO protonix (6) Smoker: Current visit: No Status: Acute Smoking cessation advised. Written for prn nicotine patch (7) Discharge planning issues: Current visit: Yes Status: Acute Full code Likely discharge home in 48 hours. At this time, still requiring O2 - will assess at the time of discharge. (8) DVT prophylaxis: Current visit: Yes Status: Acute Lovenox Subjective Interval history since last seen: Feels much better today. Still gets short of breath when walking, but much less so. Cough is not productive and is better. Denies dizziness, chest pain, shortness of breath at rest, nausea, vomiting. Exam Narrative Exam Narrative: General: Pleasant middle Aged female, no tachypnea noted in bed at rest or with speaking with me for several minutes, A&Ox3 HEENT: moist MM, EOMI, Heart: RRR, no m/r/g Lungs:Improved aeration bilaterally; quiet wheezing on expiration GI: abdomen soft, nontender, nondistended Extremities: no e/c/c BLE's, 2+ pedal pulses Bilaterally Objective Objective Clinical Data: Abnormal lab results 03/15/18 03/15/18 Range/Units 06:25 06:25 RBC 3.82 L (4.00-5.20) m/cumm Hgb 11.9 L (12.0-15.5) g/dL Absolute Lymphocytes 0.97 L (1.2-3.4) k/cumm Creatinine 0.47 L (0.55-1.02) mg/dL Glucose 148 H (70-100) mg/dL Vital Signs Temperature 36.7 C 03/15/18 11:40 Temperature Source Tympanic 03/15/18 11:40 Pulse 67 03/15/18 13:42 Pulse Rhythm Regular 03/15/18 07:35 Pulse 84 03/14/18 10:10 Respiratory Rate 22 03/15/18 13:42 Respiratory Effort Non-Labored 03/15/18 07:35 Respiratory Depth Normal 03/15/18 07:35 Respiratory Pattern Normal 03/15/18 07:35 Blood Pressure 122/71 03/15/18 11:40 Blood Pressure Mean 79 03/14/18 08:00 Blood Pressure Position Supine 03/13/18 19:55 Pulse Oximetry 98 03/15/18 13:42 Oxygen Delivery Method Room Air 03/15/18 11:40 Oxygen Flow Rate 0 03/15/18 11:40 Fraction of Inspired Oxygen (FIO2) 30 03/13/18 10:26 Pain Level 0 03/14/18 10:30 Intake & Output 03/14/18 03/15/18 03/15/18 23:59 11:59 23:59 Intake Total 1175 / 3140 1196.25 / 1436.25 240 / 1436.25 Output Total 500 / 2000 100 / 325 225 / 325 Balance 675 / 1140 1096.25 / 1111.25 15 / 1111.25 Weight 44.4 kg Intake: IV 875 / 2300 1076.25 / 1076.25 Oral 300 / 840 120 / 360 240 / 360 Output: Urine 500 / 2000 100 / 325 225 / 325 Other: Urine Color Yellow Yellow Yellow Urine Appearance Clear Clear Comment small amount mixed with stool. Stool Size Moderate Moderate Stool Characteristics Soft Soft Brown Formed Voiding Methods Bedside Commode Toilet Toilet Laboratory Results WBC 8.09 k/cumm (4.4-10.8) D 03/15/18 06:25 RBC 3.82 m/cumm (4.00-5.20) L 03/15/18 06:25 Hgb 11.9 g/dL (12.0-15.5) L 03/15/18 06:25 Hct 36.3 % (36.0-46.0) 03/15/18 06:25 MCV 95.0 fL (80-95) 03/15/18 06:25 MCH 31.2 pg (27.0-33.0) 03/15/18 06:25 MCHC 32.8 g/dL (32.0-36.0) 03/15/18 06:25 RDW 12.3 % (11.7-14.6) 03/15/18 06:25 Plt Count 242 x1000/uL (130-400) 03/15/18 06:25 MPV 9.8 fL (8.0-11.0) 03/15/18 06:25 Immature Gran % 0.0 03/15/18 06:25 Neutrophils % 81.0 03/15/18 06:25 Lymphocytes % 8.0 03/15/18 06:25 Atypical Lymphs % 4 03/15/18 06:25 Monocytes % 7.0 03/15/18 06:25 Eosinophils % 0.0 03/15/18 06:25 Basophils % 0.0 03/15/18 06:25 Absolute Neutrophils 6.55 k/cumm (1.2-6.7) 03/15/18 06:25 Absolute Lymphocytes 0.97 k/cumm (1.2-3.4) L 03/15/18 06:25 Absolute Monocytes 0.57 k/cumm (0.11-0.7) 03/15/18 06:25 Absolute Eosinophils 0.00 k/cumm (0.0-0.7) 03/15/18 06:25 Absolute Basophils 0.00 k/cumm (0.0-0.2) 03/15/18 06:25 Differential Comment Manual differential 03/15/18 06:25 RBC Morphology See below 03/15/18 06:25 Polychromasia Present 03/15/18 06:25 Sample Site Right brachial 03/13/18 11:16 pCO2 41 mmHg (34-47) 03/13/18 11:16 pO2 68 mmHg (83-108) L 03/13/18 11:16 O2 Saturation 93 % (94-98) L 03/13/18 11:16 ABG pH 7.38 (7.35-7.45) 03/13/18 11:16 ABG HCO3 24 mmol/L (22-28) 03/13/18 11:16 ABG Total CO2 22 mmol/L (22-29) 03/13/18 11:16 ABG Base Excess -0.9 mmol/L (-3-3) 03/13/18 11:16 FiO2 30 % 03/13/18 11:16 Sodium 142 mmol/L (136-145) 03/15/18 06:25 Potassium 4.0 mmol/L (3.5-5.1) 03/15/18 06:25 Chloride 106 mmol/L (98-107) 03/15/18 06:25 Carbon Dioxide 29.5 mmol/L (21.0-32.0) 03/15/18 06:25 Anion Gap 6.5 mmol/L (3-11) 03/15/18 06:25 BUN 12 mg/dL (7-18) 03/15/18 06:25 Creatinine 0.47 mg/dL (0.55-1.02) L 03/15/18 06:25 Estimated GFR/1.73 m2 >= 60.00 (mL/min/1.73m2) 03/15/18 06:25 Glucose 148 mg/dL (70-100) H 03/15/18 06:25 Lactate 0.6 mmol/l (0.6-1.4) 03/13/18 11:45 Calcium 8.5 mg/dL (8.5-10.1) 03/15/18 06:25 Magnesium 2.0 mg/dL (1.8-2.4) 03/15/18 06:25 Total Bilirubin 0.3 mg/dL (0.2-1.0) 03/13/18 07:52 AST 26 U/L (15-37) 03/13/18 07:52 ALT 34 U/L (12-78) 03/13/18 07:52 Alkaline Phosphatase 60 U/L (46-116) 03/13/18 07:52 Troponin I < 0.02 ng/mL (0.00-0.06) 03/13/18 07:52 Total Protein 8.2 g/dL (6.4-8.2) 03/13/18 07:52 Albumin 3.8 g/dL (3.4-5.0) 03/13/18 07:52 CXR: Emphysematous changes. No acute abnormality.
[2018-03-15] MEDS: methylPREDNISolone SUCC 125 MG VIAL 60 MG IVP (15:54)
[2018-03-15] MEDS: Enoxaparin 40 MG/0.4 ML SYR SC (15:54)
--- NOTE | 2018-03-15 17:07 | PDOC.CMPRO ---
- If Service Date Differs Date of service: 03/15/18 Time of Service: 17:07 Care Management Progress Note S/O: Juhi is sitting up in the bed she states that she is feeling much better she would like to complete her advance directives on Thursday CM provided her a packet to review today. A: Juhi is a 52 year old female admitted with pneumonia P: Juhi continues to be acute. She will discharge home when medically ready per provider. Anticipate no additional services at time of discharge. She is on IV antibiotics, and steroids plan will be to transition her to oral antibiotics prior to return home. CM to continue to provide support discharge planning.
[2018-03-16] VITALS (13 sets, daily range): BP systolic 125–157; BP diastolic 78–87; PULSE 55–85; RESP 1–20; TEMP 36–37.2; O2SAT 90–100
[2018-03-16] MEDS: Albuterol/Ipratropium 3 ML UPD VIAL UPD ×4 (00:05→18:47)
[2018-03-16] MEDS: Normal Saline Flush 10 ML SYR IVP ×3 (00:05→18:01)
[2018-03-16] MEDS: methylPREDNISolone SUCC 125 MG VIAL 60 MG IVP ×2 (00:05→08:13)
[2018-03-16 07:19] LABS: Abs Immature Grans 0.03 k/cumm (0.0-0.09); HGB 12.3 g/dL (12.0-15.5); Mean Corp. HGB Concentration 32.4 g/dL (32.0-36.0); Mean Corpuscular Hemoglobin 30.8 pg (27.0-33.0); Mean Corpuscular Volume 95.2 fL (80-95); Mean Platelet Volume 9.6 fL (8.0-11.0); Platelet Count 297 x1000/uL (130-400); RBC 3.99 m/cumm (4.00-5.20); RBC Distribution Width 12.2 % (11.7-14.6); White Blood Cell Count 7.89 k/cumm (4.4-10.8)
[2018-03-16 07:46] LABS: Anion Gap 6.1 mmol/L (3-11); BUN 18 mg/dL (7-18); CO2 31.9 mmol/L (21.0-32.0); CREATININE 0.65 mg/dL (0.55-1.02); Chloride 104 mmol/L (98-107); Glucose 160 mg/dL (70-100); Sodium 142 mmol/L (136-145)
[2018-03-16] MEDS: guaiFENesin 600 MG TABCR PO ×2 (08:12→19:44)
[2018-03-16] MEDS: Pantoprazole 40 MG TABCR PO (08:12)
[2018-03-16] MEDS: Oseltamivir 75 MG CAP PO ×2 (08:12→19:44)
[2018-03-16 08:26] LABS: Absolute Neutrophil Count 6.23 k/cumm (1.2-6.7); Atypical Lymphocytes % 2
[2018-03-16 08:27] LABS: Absolute Monocyte Count 0.16 k/cumm (0.11-0.7); Diff Comment Manual Differential
[2018-03-16] MEDS: Budesonide/Formoterol 160/4.5 6 GM 60 PUFF INH IH ×2 (09:04→19:44)
[2018-03-16] MEDS: AZITHROMYCIN 500 MG in Normal Saline 250 ML 250 MG IVPB (10:00)
[2018-03-16] MEDS: Enoxaparin 40 MG/0.4 ML SYR SC (15:38)
--- NOTE | 2018-03-16 18:11 | W.PM.PROGNOT ---
Date of Service Date of service: 03/16/18 Time of Service: 14:45 Assessment and Plan (1) Acute respiratory failure with hypoxia: Current visit: Yes Status: Acute In setting of acute influenza A infection, acute exacerbation of COPD, and acute bacterial bronchitis. No pneumonia. Improved markedly. Continue azithromycin/rocephin (Day 4) Continue tamiflu (Day 4) Continue symbicort, nebs. Transition steroids to PO (2) Sepsis: Current visit: Yes Status: Resolved Due to acute bronchitis and influenza A. Continue rocephin/azithromycin. (3) COPD with acute exacerbation: Current visit: Yes Status: Acute As above (4) Influenza A: Current visit: Yes Status: Acute As above (5) Hiatal hernia with GERD: Current visit: No Status: Chronic Continue PO protonix (6) Smoker: Current visit: No Status: Acute Smoking cessation advised. Written for prn nicotine patch (7) Discharge planning issues: Current visit: Yes Status: Acute Full code Discharge home tomorrow. At this point not appearing to require O2. Will evaluate once more prior to d/c. (8) DVT prophylaxis: Current visit: Yes Status: Acute Lovenox Subjective Interval history since last seen: Ms Clark is feeling better today. Almost back to normal. She thinks she will be ready to go home tomorrow. Denies dizziness, chest pain, nausea, vomiting. Cough is mostly nonproductive now. She has been ambulating in the hallway - did not require O2. Exam Narrative Exam Narrative: General: Pleasant middle Aged female, sitting up in a chair, comfortable, looks better HEENT: moist MM, EOMI, Heart: RRR, no m/r/g Lungs:Improved aeration bilaterally; very minimal wheezing heard today GI: abdomen soft, nontender, nondistended Extremities: no e/c/c BLE's, 2+ pedal pulses Bilaterally Objective Objective Clinical Data: Abnormal lab results 03/16/18 03/16/18 Range/Units 06:55 06:55 RBC 3.99 L (4.00-5.20) m/cumm MCV 95.2 H (80-95) fL Glucose 160 H (70-100) mg/dL Vital Signs Temperature 36.5 C 03/16/18 16:11 Temperature Source Tympanic 03/16/18 16:11 Pulse 60 03/16/18 16:11 Pulse Rhythm Regular 03/16/18 15:29 Pulse 84 03/14/18 10:10 Respiratory Rate 20 03/16/18 16:11 Respiratory Effort 03/16/18 15:29 Respiratory Depth Normal 03/16/18 15:29 Respiratory Pattern Normal 03/16/18 15:29 Blood Pressure 133/79 03/16/18 16:11 Blood Pressure Mean 79 03/14/18 08:00 Blood Pressure Position Supine 03/13/18 19:55 Pulse Oximetry 90 L 03/16/18 16:11 Oxygen Delivery Method Room Air 03/16/18 16:11 Oxygen Flow Rate 0 03/16/18 16:11 Fraction of Inspired Oxygen (FIO2) 30 03/13/18 10:26 Pain Level 0 03/16/18 00:10 Intake & Output 03/15/18 03/16/18 03/16/18 23:59 11:59 23:59 Intake Total 240 / 1736.25 490 / 1270 780 / 1270 Output Total 225 / 325 Balance 15 / 1411.25 490 / 1270 780 / 1270 Weight 44.4 kg 44.4 kg Intake: IV 250 / 310 60 / 310 Oral 240 / 360 240 / 960 720 / 960 Output: Urine 225 / 325 Other: Urine Color Yellow Urine Appearance Clear Clear Comment Patient reported trips to the bathroom 2x for urination. Urine not seen. Urine not seen at this time. Pt denies sx. Voiding ad diamond in toilet. Stool Size Moderate Stool Characteristics Soft Formed Voiding Methods Toilet Toilet Laboratory Results WBC 7.89 k/cumm (4.4-10.8) 03/16/18 06:55 RBC 3.99 m/cumm (4.00-5.20) L 03/16/18 06:55 Hgb 12.3 g/dL (12.0-15.5) 03/16/18 06:55 Hct 38.0 % (36.0-46.0) 03/16/18 06:55 MCV 95.2 fL (80-95) H 03/16/18 06:55 MCH 30.8 pg (27.0-33.0) 03/16/18 06:55 MCHC 32.4 g/dL (32.0-36.0) 03/16/18 06:55 RDW 12.2 % (11.7-14.6) 03/16/18 06:55 Plt Count 297 x1000/uL (130-400) 03/16/18 06:55 MPV 9.6 fL (8.0-11.0) 03/16/18 06:55 Immature Gran % 0.0 03/16/18 06:55 Neutrophils % 79.0 03/16/18 06:55 Lymphocytes % 17.0 03/16/18 06:55 Atypical Lymphs % 2 03/16/18 06:55 Monocytes % 2.0 03/16/18 06:55 Eosinophils % 0.0 03/16/18 06:55 Basophils % 0.0 03/16/18 06:55 Absolute Neutrophils 6.23 k/cumm (1.2-6.7) 03/16/18 06:55 Absolute Lymphocytes 1.50 k/cumm (1.2-3.4) 03/16/18 06:55 Absolute Monocytes 0.16 k/cumm (0.11-0.7) 03/16/18 06:55 Absolute Eosinophils 0.00 k/cumm (0.0-0.7) 03/16/18 06:55 Absolute Basophils 0.00 k/cumm (0.0-0.2) 03/16/18 06:55 Differential Comment Manual differential 03/16/18 06:55 RBC Morphology See below 03/15/18 06:25 Polychromasia Present 03/15/18 06:25 Sample Site Right brachial 03/13/18 11:16 pCO2 41 mmHg (34-47) 03/13/18 11:16 pO2 68 mmHg (83-108) L 03/13/18 11:16 O2 Saturation 93 % (94-98) L 03/13/18 11:16 ABG pH 7.38 (7.35-7.45) 03/13/18 11:16 ABG HCO3 24 mmol/L (22-28) 03/13/18 11:16 ABG Total CO2 22 mmol/L (22-29) 03/13/18 11:16 ABG Base Excess -0.9 mmol/L (-3-3) 03/13/18 11:16 FiO2 30 % 03/13/18 11:16 Sodium 142 mmol/L (136-145) 03/16/18 06:55 Potassium 4.0 mmol/L (3.5-5.1) 03/16/18 06:55 Chloride 104 mmol/L (98-107) 03/16/18 06:55 Carbon Dioxide 31.9 mmol/L (21.0-32.0) 03/16/18 06:55 Anion Gap 6.1 mmol/L (3-11) 03/16/18 06:55 BUN 18 mg/dL (7-18) D 03/16/18 06:55 Creatinine 0.65 mg/dL (0.55-1.02) 03/16/18 06:55 Estimated GFR/1.73 m2 >= 60.00 (mL/min/1.73m2) 03/16/18 06:55 Glucose 160 mg/dL (70-100) H 03/16/18 06:55 Lactate 0.6 mmol/l (0.6-1.4) 03/13/18 11:45 Calcium 9.0 mg/dL (8.5-10.1) 03/16/18 06:55 Magnesium 2.0 mg/dL (1.8-2.4) 03/16/18 06:55 Total Bilirubin 0.3 mg/dL (0.2-1.0) 03/13/18 07:52 AST 26 U/L (15-37) 03/13/18 07:52 ALT 34 U/L (12-78) 03/13/18 07:52 Alkaline Phosphatase 60 U/L (46-116) 03/13/18 07:52 Troponin I < 0.02 ng/mL (0.00-0.06) 03/13/18 07:52 Total Protein 8.2 g/dL (6.4-8.2) 03/13/18 07:52 Albumin 3.8 g/dL (3.4-5.0) 03/13/18 07:52
--- NOTE | 2018-03-16 18:52 | PDOC.CMPRO ---
- If Service Date Differs Date of service: 03/16/18 Time of Service: 18:52 Care Management Progress Note S/O: Juhi continues to improve, anticipate she will be discharged per provider on Thursday. No changes in the plan today she remains acute at this time. A: Juhi is a 52 year old female admitted with pneumonia P: Juhi continues to be acute. She will discharge home when medically ready per provider. Anticipate no additional services at time of discharge. She is on IV antibiotics, and oral steroids. Plan will be to transition her to oral antibiotics prior to return home. CM to continue to provide support discharge planning.
[2018-03-16] MEDS: predniSONE 20 MG TAB 60 MG PO (19:44)
[2018-03-17 04:20] VITALS: BP 152/84; PULSE 61; RESP 18; TEMP 36.7; O2SAT 94
[2018-03-17] MEDS: Albuterol/Ipratropium 3 ML UPD VIAL UPD ×2 (04:51→11:50)
[2018-03-17 07:22] LABS: HCT 34.5 % (36.0-46.0); HGB 11.3 g/dL (12.0-15.5); Mean Corp. HGB Concentration 32.8 g/dL (32.0-36.0); Mean Corpuscular Volume 94.5 fL (80-95); Mean Platelet Volume 9.4 fL (8.0-11.0); Platelet Count 288 x1000/uL (130-400); RBC 3.65 m/cumm (4.00-5.20); RBC Distribution Width 12.1 % (11.7-14.6); White Blood Cell Count 6.23 k/cumm (4.4-10.8)
[2018-03-17 07:53] LABS: Anion Gap 4.3 mmol/L (3-11); BUN 17 mg/dL (7-18); CO2 32.7 mmol/L (21.0-32.0); CREATININE 0.49 mg/dL (0.55-1.02); Calcium 8.7 mg/dL (8.5-10.1); Chloride 104 mmol/L (98-107); Glucose 145 mg/dL (70-100); Magnesium 2.1 mg/dL (1.8-2.4); Sodium 141 mmol/L (136-145)
[2018-03-17 08:29] VITALS: BP 141/81; PULSE 57; RESP 20; TEMP 37.4; O2SAT 91
[2018-03-17] MEDS: Acetaminophen 325 MG TAB PO (08:33)
[2018-03-17] MEDS: guaiFENesin 600 MG TABCR PO (08:33)
[2018-03-17] MEDS: predniSONE 20 MG TAB 60 MG PO (08:34)
[2018-03-17] MEDS: Oseltamivir 75 MG CAP PO (08:35)
[2018-03-17] MEDS: Pantoprazole 40 MG TABCR PO (08:35)
[2018-03-17 09:55] VITALS: O2SAT 91
[2018-03-17] MEDS: Budesonide/Formoterol 160/4.5 6 GM 60 PUFF INH IH (09:58)
[2018-03-17] MEDS: Normal Saline Flush 10 ML SYR IVP (10:50)
[2018-03-17] MEDS: AZITHROMYCIN 500 MG in Normal Saline 250 ML 250 MG IVPB (10:51)
[2018-03-17 11:42] VITALS: BP 146/70; PULSE 65; RESP 20; TEMP 37.2; O2SAT 93
--- NOTE | 2018-03-17 12:45 | W.PM.DS.N ---
Date of service: 03/17/18 Time of Service: 12:46 DS: Diagnosis Discharge Diagnosis (1) Acute respiratory failure with hypoxia: Status: Resolved (2) Sepsis: Status: Resolved (3) COPD with acute exacerbation: Status: Acute (4) Influenza A: Status: Acute (5) Hiatal hernia with GERD: Status: Chronic (6) Smoker: Status: Acute Discharge Plan Disposition Patient Disposition: HOME Condition: Stable Discharge Details Reason For Visit: INFLUENZA,ACUTE RESP,ACUTE COPD EXACERBATION Admit Date/Time: 03/13/18 10:36 Admit Provider: Varsha Ang Attending Provider: Varsha Ang Primary Care Provider: Gay Cooper [facility] Course Hospital Course: Ms Clark is a 52 year old female with PMHx of non-oxygen dependent COPD, ongoing tobacco abuse, GERD, depression, who was admitted to [facility] ICU on 03/13/09 for acute hypoxic respiratory failure due to acute exacerbation of her COPD triggered by influenza A infection with a bacterial bronchitis superinfection. She initially required CPAP therapy due to increased work of breathing and hypoxia in the 80's. She was treated with tamiflu, azithromycin, rocephin, IV steroids, symbicort, and nebs. She was able to be transferred out of ICU on hospital day 2 and continued to steadily improve. We were able to wean her O2 entirely. Ambulatory pulse ox on discharge on room air is 94%. We recommend that the patient finish her course of symbicort, steroid taper, and an increased dose of PPI. She finished her course of tamiflu and antibiotics. She would benefit from smoking cessation and participation in [facility], as well as pulmonary rehab, to which she was referred. She is asked to follow up with her PCP in 1-2 days. Home Meds and New Rx's Prescriptions: New Symbicort 160-4.5 mcg/actuation Hfa Aerosol Inhaler 2 puff Inhalation BID Qty: 10.2 RF: 0 prednisone 20 mg Tablet See Rx Instructions .ROUTE .COMPLEX Qty: 13 RF: 0 pantoprazole 40 mg Tablet,Delayed Release (Dr/Ec) 40 mg PO DAILY@0730 Qty: 30 RF: 0 Continued ProAir HFA 8.5 GM HFA aerosol inhaler 2 puff Inhalation Q2H PRN PRN (Reason: shortness of breath or wheezing) Qty: 8.5 RF: 0 Changed ipratropium-albuterol 3 ML solution for nebulization 3 ml UPD Q4H PRN PRN (Reason: shortness of breath or wheezing) Qty: 90 RF: 0 Discontinued omeprazole 20 mg capsule,delayed release(DR/EC) 20 mg PO DAILY PRNRF: 0 No Action Aeroeclipse Reusable BAN 1 EACH misc 1 ea Miscellaneous TID Qty: 1 RF: 0 Discharge Instructions Instructions: How to Stop Smoking (DC), Cigarette Smoking and Your Health (GEN), Influenza (DC), COPD (Chronic Obstructive Pulmonary Disease) (DC) Additional Instructions: Finish your steroid taper as prescribed. Return to the hospital with any fever, bleeding, chest pain or shortness of breath. You must stop smoking! Follow up with pulmonary rehab and with [facility] Referrals: Gay Cooper MD, [place] [Primary Care Provider] - Activity:: Activity as Tolerated Equipment/Supplies:: No Equipment Needed Diet:: Normal Diet Discharge Orders Discharge Orders: Discharge Order (Routine); Ordered 03/17/18 Ordered By: Varsha Ang Exam Narrative Exam Narrative: General: Pleasant middle Aged female, sitting up in a chair, comfortable, looks better HEENT: moist MM, EOMI, Heart: RRR, no m/r/g Lungs: CTAB GI: abdomen soft, nontender, nondistended Extremities: no e/c/c BLE's, 2+ pedal pulses Bilaterally DS: Data Vitals/I&O Vitals and I&O: Vital Signs Temperature 37.2 C 03/17/18 11:42 Temperature Source Tympanic 03/17/18 11:42 Pulse 65 03/17/18 11:42 Pulse Rhythm Regular 03/17/18 08:42 Pulse 84 03/14/18 10:10 Respiratory Rate 20 03/17/18 11:42 Respiratory Effort Non-Labored 03/17/18 08:42 Respiratory Depth Normal 03/17/18 08:42 Respiratory Pattern Normal 03/17/18 08:42 Blood Pressure 146/70 H 03/17/18 11:42 Blood Pressure Mean 79 03/14/18 08:00 Blood Pressure Position Supine 03/13/18 19:55 Pulse Oximetry 93 L 03/17/18 11:42 Oxygen Delivery Method Room Air 03/17/18 11:42 Oxygen Flow Rate 0 03/17/18 11:42 Fraction of Inspired Oxygen (FIO2) 30 03/13/18 10:26 Pain Level 0 03/17/18 04:20 Intake & Output 03/16/18 03/17/18 03/17/18 23:59 11:59 23:59 Intake Total 780 / 1270 200 / 200 Balance 780 / 1270 200 / 200 Weight 44.4 kg 45 kg Intake: IV 60 / 310 Oral 720 / 960 200 / 200 Other: Urine Color Yellow Urine Appearance Clear Urine Odor Normal Comment Urine not seen at this time. Pt denies sx. Voiding ad diamond in toilet. voiding independently w/o difficulty Voiding Methods Toilet Toilet Completed studies during hospitalization [Text1]: CXR 2/: Emphysematous changes. No acute abnormality. CXR 2: Emphysematous changes. No acute abnormality. Labs on day of discharge: Labs from last 24 hours 03/17/18 03/17/18 06:59 06:59 WBC 6.23 RBC 3.65 L Hgb 11.3 L Hct 34.5 L MCV 94.5 MCH 31.0 MCHC 32.8 RDW 12.1 Plt Count 288 MPV 9.4 Sodium 141 Potassium 4.0 Chloride 104 Carbon Dioxide 32.7 H Anion Gap 4.3 BUN 17 Creatinine 0.49 L Estimated GFR/1.73 m2 >= 60.00 Glucose 145 H Calcium 8.7 Magnesium 2.1 Preliminary micro results at discharge 03/13/18 14:27 Blood Culture - Preliminary Blood NO GROWTH 72 HOURS 03/13/18 14:33 Blood Culture - Preliminary Blood NO GROWTH 72 HOURS [facility] Medical History Smoker (Acute) Low back pain (Chronic) Hiatal hernia with GERD (Chronic 04/27/17) Gastric motor function disorder (Chronic) Chronic obstructive lung disease, type A (Chronic) Carpal tunnel syndrome (Resolved) Mammogram abnormal (Resolved) Tinnitus (Resolved) Back pain COPD (chronic obstructive pulmonary disease) Carpal tunnel syndrome of right wrist Depression Dyspepsia Epigastric pain Loose stools Surgical History History of bilateral tubal ligation (Resolved) S/P carpal tunnel release (Resolved) S/P foot surgery (Resolved) Colonoscopy - MAC (04/27/17) EGD - MAC (04/27/17) Ligation of fallopian tube Open Carpal Tunnel release (02/15/16) foot surgery (07/11/11) Family History Mother Diabetes Heart disease Hyperlipidemia Sepsis Asthma Father Neoplasm Sister Neoplasm Sister Chronic obstructive lung disease Asthma Brother No problems noted. Brother No problems noted. Brother No problems noted. Maternal Grandfather Stroke Paternal Grandfather Pulmonary tuberculosis Maternal Grandmother Heart disease Emphysema lung Asthma Paternal Grandmother Neoplasm Son No problems noted. Daughter Substance abuse Depression Neoplasm Social History household members: other details: 3 current occupational status: employed current occupation: [employer] pets and animals: Yes pets and animals: cat(s) and dog(s) frequency: daily duration: 15-30 minutes/day Smoking/Tobacco Use Status: Current every day tobacco type: cigarettes alcohol intake: current alcohol intake frequency: a few times a month Alcohol type: beer substance use type: does not use sean/evangelical: No preference special sean needs: No
--- NOTE | 2018-03-17 17:57 | PDOC.CMDIS ---
- If Service Date Differs Date of service: 03/17/18 Time of Service: 17:57 LACE Index Scoring Tool - Questions: Length of Stay (in days): 4 - 6 Acuity (Admit via E.D.?): Yes Comorbidities: Chronic Pulmonary Disease E.D. Visits: 2 - Answers: Total Score: 11 Risk of Readmission: High Risk Care Management Discharge Reason for Hospitalization: Influenza, acute respiratory failure with hypoxia, sepsis, COPD exacerbation Discharge Plan: Juhi is being discharged home today she will follow-up with primary care as directed. She has been referred to pulmonary rehab, and better pre- support group here at [facility]. She will be transported home via private car with spouse at time of discharge. She is being discharged home on oral steroids, and Symbicort as well as Protonix. No other services are needed at time of discharge. Patient/Family Education Needs: Discharge education, limitations, follow-up plan of care asked me 3 and self-management.
--- NOTE | 2018-03-17 18:00 | CMDISCH_ITS ---
- If Service Date Differs Date of service: 03/17/18 Time of Service: 17:57 LACE Index Scoring Tool - Questions: Length of Stay (in days): 4 - 6 Acuity (Admit via E.D.?): Yes Comorbidities: Chronic Pulmonary Disease E.D. Visits: 2 - Answers: Total Score: 11 Risk of Readmission: High Risk Care Management Discharge Reason for Hospitalization: Influenza, acute respiratory failure with hypoxia, sepsis, COPD exacerbation Discharge Plan: Juhi is being discharged home today she will follow-up with primary care as directed. She has been referred to pulmonary rehab, and better pre- support group here at [facility]. She will be transported home via pr ivate car with spouse at time of discharge. She is being discharged home on oral steroids, and Symbicort as well as Protonix. No other services are needed at time of discharge. Patient/Family Education Needs: Discharge education, limitations, follow-up plan of care asked me 3 and self-management.
== END 2018-03-17 15:30 | disposition home or self-care (01) | DRG 871 ==
LOC: ER 09:50 → ICU 14:32 → MS 03-14 10:44
PROVIDERS: Emergency Medicine; Admitting Provider Internal Medicine; Emergency Provider Physician Assistant; PCP Family Medicine; Visit Provider Internal Medicine
DX: A41.89 Other specified sepsis (principal); J96.01 Acute respiratory failure with hypoxia; J44.1 Chronic obstructive pulmonary disease with (acute) exacerbation; J44.0 Chronic obstructive pulmonary disease with (acute) lower respiratory infection; J10.1 Influenza due to other identified influenza virus with other respiratory manifestations; J20.8 Acute bronchitis due to other specified organisms; F17.210 Nicotine dependence, cigarettes, uncomplicated; K44.9 Diaphragmatic hernia without obstruction or gangrene; K21.9 Gastro-esophageal reflux disease without esophagitis
CPT/HCPCS: 36415; 80048; 80053; 82805; 85027; 87040; 87077; 87449; 93005; 94618; 94640; 96361; 96365; 96375; 99232; 99239; 99285; 99291; J1650; 36600; 71045; 83605; 83735; 84484; 85025; 87070; 87205; 93010; 99223; J0456; J0696; J2930; J3490; J7512; J7613; J7620

== ENCOUNTER 2018-03-24 02:09 | Outpatient (RCR) | payer MEDICARE, SELFPAY | END 2018-04-08 23:59 | disposition home or self-care (01) | LOC: PRC 02:09 | PROVIDERS: PCP Family Medicine; Visit Provider Family Medicine | DX: J44.9 Chronic obstructive pulmonary disease, unspecified (principal); Z51.89 Encounter for other specified aftercare | CPT/HCPCS: G0424 ==

== ENCOUNTER 2018-04-10 15:26 | Outpatient (RCR) | payer MEDICARE, SELFPAY | END 2018-05-09 23:59 | disposition home or self-care (01) | LOC: PRC 15:26 | PROVIDERS: PCP Family Medicine; Visit Provider Family Medicine | DX: J44.9 Chronic obstructive pulmonary disease, unspecified (principal); Z51.89 Encounter for other specified aftercare | CPT/HCPCS: G0424 ==

== ENCOUNTER 2018-05-10 05:54 | Outpatient (RCR) | payer MEDICARE, SELFPAY | END 2018-06-08 23:59 | disposition home or self-care (01) | LOC: PRC 05:54 | PROVIDERS: PCP Family Medicine; Visit Provider Family Medicine | DX: J44.9 Chronic obstructive pulmonary disease, unspecified (principal); Z51.89 Encounter for other specified aftercare | CPT/HCPCS: G0424 ==

== ENCOUNTER 2018-06-09 04:39 | Outpatient (RCR) | payer MEDICARE, SELFPAY | END 2018-07-09 23:59 | disposition home or self-care (01) | LOC: PRC 04:39 | PROVIDERS: PCP Family Medicine; Visit Provider Family Medicine | DX: J44.9 Chronic obstructive pulmonary disease, unspecified (principal); Z51.89 Encounter for other specified aftercare | CPT/HCPCS: G0424 ==

== ENCOUNTER 2018-07-11 04:46 | Outpatient (RCR) | payer SELFPAY ==
--- NOTE | 2018-07-19 08:14 | PR3E_ITS ---
Juhi is a recent Phase 2 pulmonary rehabilitation graduate who decided to continue exercising with our maintenance program, 2 days per week. PMH: COPD, GERD, Emphysema Medications:ProAir HFA, Symbicort, Albuterol, Pantoprazole Juhi started the Phase 3 maintenance phase on Jul 08 2018. She performed the same exercise regimen she had been tolerating in Phase 2 of pulmonary rehabilitation. Resting Vital signs: HR 96, BP114/78, oxygen saturation 91% on room air. She tolerated 30-45 minutes of exercise between the treadmill, UBE, NuStep, stationary bike, free weights, and resistance bands. Her heart range with exercise was 101-113 bpm, her oxygen saturations were 95-96% on room air. She will continue her regimen as tolerated and assistance with progression will provided as her activity tolerance and endurance continue to improve.
== END 2018-08-08 23:59 | disposition home or self-care (01) ==
LOC: PRC 04:46
PROVIDERS: PCP Family Medicine; Visit Provider Family Medicine
DX: J44.9 Chronic obstructive pulmonary disease, unspecified (principal); Z51.89 Encounter for other specified aftercare

== ENCOUNTER 2018-07-27 08:00 | Outpatient (RCR) | payer SELFPAY | END 2018-08-08 23:59 | disposition home or self-care (01) | LOC: CR 08:00 | PROVIDERS: PCP Family Medicine; Visit Provider Family Medicine | DX: Z51.89 Encounter for other specified aftercare (principal) ==

== ENCOUNTER 2018-08-09 14:15 | Outpatient (RCR) | payer SELFPAY | END 2018-09-08 23:59 | disposition home or self-care (01) | LOC: CR 14:15 | PROVIDERS: PCP Family Medicine; Visit Provider Family Medicine | DX: Z51.89 Encounter for other specified aftercare (principal) ==

== ENCOUNTER 2018-08-09 14:18 | Outpatient (RCR) | payer SELFPAY | END 2018-09-08 23:59 | disposition home or self-care (01) | LOC: PRC 14:18 | PROVIDERS: PCP Family Medicine; Visit Provider Family Medicine | DX: J44.9 Chronic obstructive pulmonary disease, unspecified (principal); Z51.89 Encounter for other specified aftercare ==

== ENCOUNTER 2018-10-10 04:03 | Outpatient (RCR) | payer SELFPAY ==
--- NOTE | 2018-12-20 14:45 | PR3E_ITS ---
53 year old female joined the maintenance phase of cardiopulmonary rehabilitation on July 08, 2018 after completing Phase 2 pulmonary rehab. The patient started Phase 3-2 on July 08, 2018 and only attended class twice in July. Patient is being discharged from the program. Will assist patient to re- enroll in the program and obtaining proper referrals in the future should she want to return.
== END 2018-11-08 23:59 | disposition home or self-care (01) ==
LOC: CR 04:03
PROVIDERS: PCP Family Medicine; Visit Provider Family Medicine
DX: Z51.89 Encounter for other specified aftercare (principal)

== ENCOUNTER 2018-12-20 16:45 | Outpatient (REF) | payer MEDICARE, SELFPAY ==
--- NOTE | 2018-12-20 14:00 | PAPFT_PTH ---
PATIENT: AmberMay Kvng [id number] AGE/SX: 53/F ROOM: RE12/20/[address]: Gay Cooper MD, [place] : 1965 BED: DIS: 12/20/2018 SPEC #: [id number] RECD: 12/20/18 18:45 STATUS: SHEREEN REQ #: [id number] MARILU: 12/20/18 14:[address]: Gay Cooper DEPT: [facility] Cytology RECD BY: Jacquelyn Jacome Tissues: 1 - CX/ENDOCX FOR PAP SMEARS Procedures: PAP THIN PREP/UVM Screening HPV DNA PROBE Comments: [id number]
== END 2018-12-20 17:05 ==
LOC: NCHCN 16:45
PROVIDERS: PCP Family Medicine; Visit Provider Family Medicine
DX: Z12.4 Encounter for screening for malignant neoplasm of cervix (principal); Z11.51 Encounter for screening for human papillomavirus (HPV)
CPT/HCPCS: 88142; 87624

== ENCOUNTER 2018-12-22 01:20 | Outpatient (CLI) | payer MEDICARE, SELFPAY ==
[2018-12-22] MEDS: Inhaler, Assist Device 1 EACH MC (08:45)
[2018-12-22] MEDS: Albuterol HFA 18 GM 200 PUFF INH IH (08:45)
--- NOTE | 2018-12-22 11:31 | PFT_ITS ---
PULMONARY FUNCTION TEST REPORT DATE OF SERVICE: December 22, 2018 REQUESTING PROVIDER: Gay Cooper M.D. Spirometry shows very severe obstructive airways disease with no significant bronchodilator response. Lung volumes show no evidence of restriction. There is mild hyperinflation and air trapping. Diffusion capacity moderately reduced, which is mildly reduced when corrected to alveolar volume. Airways resistance markedly elevated. IMPRESSION: Very severe obstructive airways disease with no significant bronchodilator response. This is associated with mild hyperinflation and air trapping and moderate diffusion defect. There is also markedly elevated airways resistance. Clinical correlation recommended. When this study was compared to previous ones on 11/24/07, 05/03/09 and 02/05/18, the patient has an initial gradual decline in FVC but has been stable from 2018. Overall there is a 950 cc's decline from 2008. FEV1 has had a similar pattern. There is an overall 1260 cc's decline from 2008, but basically stable from 2018. ROBBIE/keysha D/
== END 2018-12-22 01:40 ==
PROVIDERS: PCP Family Medicine; Visit Provider Family Medicine
DX: J44.9 Chronic obstructive pulmonary disease, unspecified (principal); R06.00 Dyspnea, unspecified; Z87.891 Personal history of nicotine dependence
CPT/HCPCS: 94060; 94150; 94726; 94729

== ENCOUNTER 2018-12-27 15:04 | Inpatient (IN) | payer MEDICARE, SELFPAY ==
[2018-12-27] VITALS (46 sets, daily range): BP systolic 108–138; BP diastolic 5–89; PULSE 80–136; RESP 4–31; TEMP 36.8–38.3; O2SAT 86–98
--- NOTE | 2018-12-27 15:11 | ED.GENADUL_ITS ---
Discharge Plan Disposition Patient Disposition: [facility] INPATIENT Condition: Stable Discharge Details Chief Complaint: GenMedical Clinical Impression: Pneumonia, COPD with acute exacerbation Admit Date/Time: 12/27/18 17:54 Admit Provider: Patric Andrade Attending Provider: Varsha Ang Primary Care Provider: Gay Cooper ED Provider: Karen Ontiveros Discharge Data Discharge Date/Time-TO BE ENTERED AT DEPARTURE: 12/27/18 18:47 Medical Decision Making 1530 -- 53-year-old female with a history of COPD, former 30 pack-year smoking history GERD presents with fever, cough with yellow sputum, shortness of breath, wheezing, fatigue, body aches and decreased appetite over the past 2 days. Also admits to diarrhea. Denies chest pain. Heart rate 130s on arrival. Temp 99.9. O2 sat 90% on room air. BP 130s/90s. Patient is able to speak in full sentences. She has diminished breath sounds with scattered wheezing throughout. EKG notes a rate of 131, sinus, occasional PVC, less than [address] depression which has been seen in previous EKG. No acute ST elevation. Differential diagnosis includes acute COPD exacerbation, influenza, pneumonia, acute bronchitis. Presentation/history not consistent with ACS or PE. Will place an IV, bolus IV fluids, DuoNeb, steroids, screening labs, chest x- ray. 1605 -- patient reassessed --patient states she feels somewhat better after neb treatments. Improved breath sounds. O2 sat 93-95% on room air. Will give another 2 duo nebs and reassess. 1700 -- patient reassessed --O2 sat 88% on RA. Pt states she feels only slightly better. Labs and imaging reviewed. White blood cell count 21. Troponin and BNP within normal limits. Influenza negative. Chest x-ray notes a left lower lobe pneumonia. Will admit for IV antibiotics, fluids, continue nebs and steroids. Case discussed with hospitalist --accepts patient for admission. Medical Records Medical records reviewed: Yes I reviewed the patient's medical records. Imaging Data Radiologic Study: Radiologist's impression: XR Chest, 2 Views Exam date and time: 12/27/2018 3:28 PM Clinical history: 53 years old, female; Cough and fever and shortness of breath; Patient HX: Cough, SOB, fever; Additional info: R/O pneumonia TECHNIQUE: Imaging protocol: XR of the chest Views: 2 views. COMPARISON: CR XR PORTABLE CHEST AP 03/15/2018 7:04 AM FINDINGS: Lungs: Patchy infiltrate at the left base. Pleural space: Unremarkable. No pleural effusion. No pneumothorax. Heart/Mediastinum: Unremarkable. No cardiomegaly. Bones/joints: Unremarkable. IMPRESSION: Patchy infiltrate at the left base. Lab Data Lab results reviewed: Yes I reviewed the patient's lab results. Labs: 12/27/18 16:23 Blood Blood Culture - Pending 12/27/18 16:13 Blood Blood Culture - Pending 12/27/18 15:17 Nasopharynx Influenza Types A,B Antigen - Final Laboratory Tests Range/Units 12/27/18 12/27/18 12/27/18 15:40 15:40 15:40 WBC (4.4-10.8) k/cumm 21.29 H RBC (4.00-5.20) m/cumm 4.42 Hgb (12.0-15.5) g/dL 13.9 Hct (36.0-46.0) % 40.9 MCV (80-95) fL 92.5 MCH (27.0-33.0) pg 31.4 MCHC (32.0-36.0) g/dL 34.0 RDW (11.7-14.6) % 12.3 Plt Count (130-400) x1000/uL 351 MPV (8.0-11.0) fL 9.4 Immature Gran % 0.3 Neutrophils % 89.1 Lymphocytes % 3.7 Monocytes % 6.9 Eosinophils % 0.0 Basophils % 0.0 Absolute Neutrophils (1.2-6.7) k/cumm 18.97 H Absolute Lymphocytes (1.2-3.4) k/cumm 0.79 L Absolute Monocytes (0.11-0.7) k/cumm 1.47 H Absolute Eosinophils (0.0-0.7) k/cumm 0.00 Absolute Basophils (0.0-0.2) k/cumm 0.00 Sodium (136-145) mmol/L 137 Potassium (3.5-5.1) mmol/L 3.9 Chloride (98-107) mmol/L 101 Carbon Dioxide (21.0-32.0) mmol/L 26.0 Anion Gap (3-11) mmol/L 10.0 BUN (7-18) mg/dL 21 H Creatinine (0.55-1.02) mg/dL 0.56 Estimated GFR/1.73 m2 (mL/min/1.73m2) >= 60.00 Glucose (70-100) mg/dL 109 H Lactate (0.6-1.4) mmol/L 0.9 Calcium (8.5-10.1) mg/dL 9.3 Magnesium (1.8-2.4) mg/dL 2.0 Total Bilirubin (0.2-1.0) mg/dL 0.3 AST (15-37) U/L 15 ALT (14-59) U/L 29 Alkaline Phosphatase (46-116) U/L 81 Troponin I (0.00-0.06) ng/mL < 0.05 NT-Pro-B Natriuret Pep ( - 299) pg/mL 120 Total Protein (6.4-8.2) g/dL 7.7 Albumin (3.4-5.0) g/dL 3.4 ECG Data Attestation: I personally reviewed and interpreted this ECG (s) as follows: Interpretation: Rate of 131, sinus, occasional PVCs. Less than [address] depression which is seen in previous EKG. No acute ST elevation. WA 90. QTc 452. QRS 94. HPI General Mode of arrival: ambulatory . Date/Time Provider Initiated Documentation: 12/27/18 15:07 . Limitations to Documentation: no limitations . Information obtained by: patient . HPI Narrative: Patient is a 53 old female with a history of COPD, former [id number]-[id number] smoking history, GERD presents with fever, cough with yellow sputum, shortness of breath, wheezing, fatigue, body aches and decreased appetite for the past 2 days. T-max 102 tympanic today prior to arrival. She states she did receive the flu shot this year. She states she used nebulizer today at home without much relief. She also admits to a few episodes of watery brown diarrhea over the past 2 days. She denies chest pain, vomiting, recent travel, or known sick contacts. She states her last regimen of steroids and antibiotics for 2 months ago. She denies any history of intubations. She is not on home oxygen. Related Data Home Medications Medication Instructions Recorded Confirmed Aeroeclipse Reusable BAN #1 ea 04/12/13 12/20/18 albuterol sulfate [ProAir HFA] 2 puff INHALATION Q2H PRN PRN #8.5 05/22/16 12/27/18 gm Symbicort 2 puff INHALATION BID #10.2 gm 03/17/18 12/27/18 miconazole nitrate [Earline 1 applic TP BID PRN 12/27/18 12/27/18 Antifungal] nystatin 1 applic TP BID PRN 12/27/18 12/27/18 acidophilus-pectin, citrus 1 cap PO TID #12 tab 12/30/18 azithromycin 500 mg PO DAILY #2 tab 12/30/18 cefuroxime axetil 250 mg PO BID #5 tab 12/30/18 guaifenesin [Mucinex] 600 mg PO BID #8 tab 12/30/18 ipratropium-albuterol 3 ml UPD Q4H PRN PRN #30 ml 12/30/18 prednisone 10 mg PO DAILY #30 tab 12/30/18 Previous Rx's Medication Instructions Recorded Symbicort 2 puff INHALATION BID #10.2 gm 03/17/18 acidophilus-pectin, citrus 1 cap PO TID #12 tab 12/30/18 azithromycin 500 mg PO DAILY #2 tab 12/30/18 cefuroxime axetil 250 mg PO BID #5 tab 12/30/18 guaifenesin [Mucinex] 600 mg PO BID #8 tab 12/30/18 ipratropium-albuterol 3 ml UPD Q4H PRN PRN #30 ml 12/30/18 prednisone 10 mg PO DAILY #30 tab 12/30/18 Allergies Allergy/AdvReac Type Severity Reaction Status Date / Time venlafaxine Allergy Severe EYES Verified 12/20/18 13:35 SWELL; SHAKINESS benzonatate Allergy Intermediate FACIAL Verified 12/20/18 13:35 SWELLING meloxicam Allergy Intermediate ITCHING Verified 12/20/18 13:35 diclofenac Allergy Unknown Verified 12/20/18 13:35 misoprostol Allergy Unknown Verified 12/20/18 13:35 General ANDREA: 3 Review of Systems All systems reviewed & are unremarkable except as noted in HPI and below Constitutional Constitutional: Reports as per HPI, Reports body ache(s), Denies chills, Reports fatigue, Reports fever(s) and Reports poor appetite Eyes Eyes: Denies blurry vision ENT Ears, Nose, Mouth, and Throat: Denies dizziness, Denies sore throat and Denies throat swelling Cardiovascular Cardiovascular: Denies chest pain and Reports dyspnea Respiratory Respiratory: Reports cough and Reports dyspnea Gastrointestinal Gastrointestinal: Denies abdominal pain, Reports diarrhea and Denies vomiting Genitourinary Genitourinary: Denies hematuria and Denies dysuria Musculoskeletal Musculoskeletal: Denies back pain and Denies numbness Integumentary/Breasts Skin/Breast: Denies lesions and Denies rash Neurologic Neurologic: Denies dizziness, Denies focal weakness and Denies numbness Endocrine Endocrine: Reports fatigue Allergic/Immunologic Allergic/Immunologic: Denies throat swelling [facility] Medical History Back pain Carpal tunnel syndrome (Resolved) R Carpal tunnel syndrome of right wrist Chronic obstructive lung disease, type A (Chronic) continues to smoke COPD (chronic obstructive pulmonary disease) Depression Dyspepsia Epigastric pain Gastric motor function disorder (Chronic) Hiatal hernia with GERD (Chronic 04/27/17) Loose stools Low back pain (Chronic) SAcraliliac pain. MRI negative for lumbar pathology; T11,T12 left disc herniation. Has been to spine clinic; does get comfort from chiropractic Mammogram abnormal (Resolved) cat 3; did not return for F/U Smoker (Acute) quit in 2003; restarted; down to 3/day 11/08/18 - has not smoked for 5 days while ill with URI Tinnitus (Resolved) Surgical History Colonoscopy - MAC (04/27/17) EGD - MAC (04/27/17) foot surgery (07/11/11) History of bilateral tubal ligation (Resolved) Ligation of fallopian tube Open Carpal Tunnel release (02/15/16) right S/P carpal tunnel release (Resolved) right S/P foot surgery (Resolved) 07/11/11 Family History Mother , age 73 Diabetes Heart disease Hyperlipidemia Sepsis Asthma Father , age 58 Lymph node cancer Sister Lymph node cancer Sister , age 56 Chronic obstructive lung disease Asthma Brother No problems noted. Brother No problems noted. Brother No problems noted. Maternal Grandfather Stroke Paternal Grandfather Pulmonary tuberculosis Maternal Grandmother Heart disease Emphysema lung Asthma Paternal Grandmother Cancer Spider Son No problems noted. Daughter Substance abuse Depression Cervical cancer Social History Smoking/Tobacco Use Status: Former Tobacco Use Tobacco: How many years used: 30 Second Hand Exposure: Yes Alcohol Intake: current Alcohol Intake frequency: 0-2 drinks per day Alcohol type: beer Drug use: Never Substance use type: does not use Caregiver/Support person: No Household members: spouse and other Details: grandchildren Housing: house Communication Needs: None current occupation: [employer] Pets and animals: Yes Pets and animals: cat(s) and dog(s) Sexually active: Yes Do you think of yourself as: straight/heterosexual Current gender identity: male What is your relationship status?: How often do you talk on the phone with friends or family?: three or more times per week How often do you get together with friends or relatives?: three or more times per week How often do you attend tenriism or sabianist services?: decline to answer Do you belong to any clubs or organized social groups?: no Panel score (0-1 are the most socially isolated patients): 2 What type of physical activity do you participate in: decline to answer Duration: decline to answer Frequency: decline to answer Alley/Mormon: No preference Special alley needs: No Seatbelt use: always Helmet use: Yes Helmet use: always Drive intox or ride w/intox 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: No Do you feel safe at home: Yes Exam Const General: cooperative and no acute distress Orientation: alert, awake and oriented x3 HENMT Head: normal to inspection Ears: hearing grossly normal bilaterally, external ears normal and TM's normal bilaterally General nose exam: external nose normal Face and sinus: normal facial exam Mouth: oral mucosae normal Teeth and gingiva: dentition normal Throat: posterior oropharynx normal Eyes General: appearance normal, both eyes and all related structures Eyelids: eyelids normal EOM: EOM intact bilaterally Neck Neck: normal visual inspection Lymphatic: no lymphadenopathy noted Chest Chest: normal inspection of the chest Resp Effort & Inspection: normal respiratory effort and able to speak in complete sentences Auscultation: diminished lung sounds bilaterally throughout and wheezes scattered wheezes Cardio Rate: tachycardic Rhythm: regular rhythm GI Inspection: normal to inspection Palpation: soft, not firm, no guarding, no hepatosplenomegaly, no masses and nontender Auscultation: normal bowel sounds Skin General skin exam: no rashes or lesions noted Neuro General: alert and awake Cognition: normal cognition Speech: speech normal Gait: normal gait Motor: muscle tone normal throughout Sensory Exam: no sensory deficits noted Extrem General: normal to inspection, full ROM, normal capillary refill and no edema Psych Appearance: grossly normal Mental Status: mental status grossly normal Speech and Movement: speech and movement normal Affect: normal affect Thought Process: normal
--- NOTE | 2018-12-27 15:25 | DI.RAD_ITS ---
EXAM: XR CHEST 2V PA LATERAL INDICATION: cough, sob, fever, r/o pneumonia. COMPARISON: XR PORTABLE CHEST AP from 03/15/2018 TECHNIQUE: 2D digital imaging was performed. FINDINGS: The heart sizeis normal. The lungs again show emphysematous and fibrotic changes. There is question of a patchy infiltrate at the left lung base versus chronic changes. Scoliosis is noted in the spin e. No pneumothorax is seen. IMPRESSION: Patchy infiltrate in the left lung base.
[2018-12-27] MEDS: Normal Saline 500 ML IV ×2 (15:46→16:45)
[2018-12-27] MEDS: methylPREDNISolone SUCC 125 MG VIAL IVP (15:47)
[2018-12-27] MEDS: Albuterol 2.5 MG/3 ML INH SOLN VIAL 5 MG UPD (15:49)
[2018-12-27 15:52] LABS: Abs Immature Grans 0.06 k/cumm (0.0-0.09); Absolute Lymphocyte Count 0.79 k/cumm (1.2-3.4); Absolute Monocyte Count 1.47 k/cumm (0.11-0.7); Absolute Neutrophil Count 18.97 k/cumm (1.2-6.7); HCT 40.9 % (36.0-46.0); HGB 13.9 g/dL (12.0-15.5); Immature Grans % 0.3; Lactate 0.9 mmol/L (0.6-1.4); Lymphocytes % 3.7; Mean Corpuscular Hemoglobin 31.4 pg (27.0-33.0); Mean Corpuscular Volume 92.5 fL (80-95); Mean Platelet Volume 9.4 fL (8.0-11.0); Monocytes % 6.9; Neutrophils % 89.1; Platelet Count 351 x1000/uL (130-400); RBC 4.42 m/cumm (4.00-5.20); RBC Distribution Width 12.3 % (11.7-14.6); White Blood Cell Count 21.29 k/cumm (4.4-10.8)
[2018-12-27] MEDS: Albuterol/Ipratropium 3 ML UPD VIAL UPD ×2 (15:54→16:14)
[2018-12-27 16:15] LABS: ALT 29 U/L (14-59); AST 15 U/L (15-37); Albumin 3.4 g/dL (3.4-5.0); Alkaline Phosphatase 81 U/L (46-116); BUN 21 mg/dL (7-18); Bilirubin, Total 0.3 mg/dL (0.2-1.0); CREATININE 0.56 mg/dL (0.55-1.02); Calcium 9.3 mg/dL (8.5-10.1); Chloride 101 mmol/L (98-107); Glucose 109 mg/dL (70-100); NT-proBNP 120 pg/mL; Potassium 3.9 mmol/L (3.5-5.1); Sodium 137 mmol/L (136-145); Total Protein 7.7 g/dL (6.4-8.2)
[2018-12-27 16:16] LABS: Troponin I < 0.05 ng/mL (0.00-0.06)
[2018-12-27] MEDS: Albuterol/Ipratropium 3 ML UPD VIAL (16:17)
--- NOTE | 2018-12-27 16:50 | DI.VRAD_ITS ---
PROCEDURE INFORMATION: Exam: XR Chest, 2 Views Exam date and time: 12/27/2018 3:28 PM Clinical history: 53 years old, female; Cough and fever and shortness of breath; Patient HX: Cough, SOB, fever; Additional info: R/O pneumonia TECHNIQUE: Imaging protocol: XR of the chest Views: 2 views. COMPARISON: CR XR PORTABLE CHEST AP 03/15/2018 7:04 AM FINDINGS: Lungs: Patchy infiltrate at the left base. Pleural space: Unremarkable. No pleural effusion. No pneumothorax. Heart/Mediastinum: Unremarkable. No cardiomegaly. Bones/joints: Unremarkable. IMPRESSION: Patchy infiltrate at the left base. Dictated and Authenticated by: Cait Chew MD. Ordering:DALTON Jones MD
[2018-12-27] MEDS: Acetaminophen 500 MG TAB 1000 MG PO (16:59)
[2018-12-27] MEDS: Ketorolac 30 MG/ML VIAL (17:06)
[2018-12-27] MEDS: cefTRIAXone 1 GM/50 ML BAG IVPB (17:35)
[2018-12-27] MEDS: AZITHROMYCIN 500 MG in Normal Saline 250 ML 250 MG IVPB (18:04)
[2018-12-27] MEDS: Normal Saline Flush 10 ML SYR IVP (18:05)
--- NOTE | 2018-12-27 18:13 | W.PM.HP.N ---
Date of service: 12/27/18 Time of Service: 18:14 Assessment and Plan Assessment and plan (1) COPD with acute exacerbation: Start date: 12/27/18 Status: Acute Assessment and plan: This is a 53-year-old lady who has had a recent onset of upper respiratory symptoms with fever, significant white count and imaging reveals left lower lobe infiltrates consistent with a acquired pneumonia. She also has COPD exacerbation been a smoker. She has associated wheezing with change in sputum and hypoxemia. To be admitted for IV hydration along with IV antibiotics including Rocephin and Zithromax and supportive care with oxygen supplementation and more frequent nebulizers. IV Solu-Medrol will be Initiated. She is chronically on inhalers at home. Expectations are to improve and go home. She is a full code. (2) Community acquired pneumonia: Start date: 12/27/18 Status: Acute Assessment and plan: Left lower lobe pneumonia associated with the of exacerbation and fever with hypoxemia. IV Rocephin and Zithromax with conversion to oral therapy for discharge. Continue respiratory toilet. Qualifiers: Laterality: left Lung location: lower lobe of lung Qualified Code(s): J18.9 - Pneumonia, unspecified organism (3) Hypoxemia: Start date: 12/27/18 Status: Acute Assessment and plan: Most likely secondary to pneumonia and COPD exacerbation with supplementation while in the hospital. I do not think she is on this at home. This needs to be reassessed prior to discharge. Currently is not smoking. If hypoxemia worsens we should consider CT PE protocol which was not done upon admission. He will be on DVT prophylaxis. History of Present Illness History of Present Illness Chief Complaint: Dyspnea with cough and fever for 3 days Narrative: This is a 53-year-old lady who has a previous smoker quitting about 6 months ago who had a [id number] history prior to stopping smoking. She presented with a 3-day history of acute upper respiratory symptoms with fever up to 102 the day prior to arrival but associate cough with sputum changing color, dyspnea and wheezing along with fatigue and body aches. She is not improving and presented to the ED for evaluation where she was given multiple nebulizers and was noted to be hypoxemic. Chest x-ray did reveal patchy left infiltrates and she was admitted for COPD exacerbation and treatment of community-acquired pneumonia. Her last episode was 2 months prior to this with treatment of steroids and antibiotics I think as an outpatient. She had no other complaints denying hemoptysis, no GI symptoms and no cardiovascular symptoms denying chest pain. She had no peripheral edema. Patient does live at home with her child and grandchild and no one has been ill with viral infections. Review of Systems Narrative: 13 point review of systems otherwise unrevealing or stable. Patient does have problems with Candidal skin rashes and is on minimal medications. She is not diabetic. [facility] Medical History Back pain Carpal tunnel syndrome (Resolved) R Carpal tunnel syndrome of right wrist Chronic obstructive lung disease, type A (Chronic) continues to smoke COPD (chronic obstructive pulmonary disease) Depression Dyspepsia Epigastric pain Gastric motor function disorder (Chronic) Hiatal hernia with GERD (Chronic 04/27/17) Loose stools Low back pain (Chronic) SAcraliliac pain. MRI negative for lumbar pathology; T11,T12 left disc herniation. Has been to spine clinic; does get comfort from chiropractic Mammogram abnormal (Resolved) cat 3; did not return for F/U Smoker (Acute) quit in 2003; restarted; down to 3/day 11/08/18 - has not smoked for 5 days while ill with URI Tinnitus (Resolved) Surgical History Colonoscopy - MAC (04/27/17) EGD - MAC (04/27/17) foot surgery (07/11/11) History of bilateral tubal ligation (Resolved) Ligation of fallopian tube Open Carpal Tunnel release (02/15/16) right S/P carpal tunnel release (Resolved) right S/P foot surgery (Resolved) 07/11/11 Family History Mother , age 73 Diabetes Heart disease Hyperlipidemia Sepsis Asthma Father , age 58 Lymph node cancer Sister Lymph node cancer Sister , age 56 Chronic obstructive lung disease Asthma Brother No problems noted. Brother No problems noted. Brother No problems noted. Maternal Grandfather Stroke Paternal Grandfather Pulmonary tuberculosis Maternal Grandmother Heart disease Emphysema lung Asthma Paternal Grandmother Cancer Spider Son No problems noted. Daughter Substance abuse Depression Cervical cancer Social History Smoking/Tobacco Use Status: Former Tobacco Use Tobacco: How many years used: 30 Second Hand Exposure: Yes Alcohol Intake: current Alcohol Intake frequency: 0-2 drinks per day Alcohol type: beer Drug use: Never Substance use type: does not use Caregiver/Support person: No Household members: spouse and other Details: grandchildren Housing: house Communication Needs: None current occupation: [employer] Pets and animals: Yes Pets and animals: cat(s) and dog(s) Sexually active: Yes Do you think of yourself as: straight/heterosexual Current gender identity: male What is your relationship status?: How often do you talk on the phone with friends or family?: three or more times per week How often do you get together with friends or relatives?: three or more times per week How often do you attend latter day or jainism services?: decline to answer Do you belong to any clubs or organized social groups?: no Panel score (0-1 are the most socially isolated patients): 2 What type of physical activity do you participate in: decline to answer Duration: decline to answer Frequency: decline to answer Alley/Zoroastrianism: No preference Special alley needs: No Seatbelt use: always Helmet use: Yes Helmet use: always Drive intox or ride w/intox show horse driver: No Do you feel safe at home: Yes Meds Home Medications and Allergies Home Medications Medication Instructions Recorded Confirmed Type Aeroeclipse Reusable BAN #1 ea 04/12/13 12/20/18 History albuterol sulfate [ProAir HFA] 2 puff INHALATION Q2H PRN PRN #8.5 05/22/16 12/27/18 History gm budesonide-formoterol [Symbicort] 2 puff INHALATION BID #10.2 gm 03/17/18 12/27/18 Rx ipratropium-albuterol 0.5 mg-3 3 ml UPD Q4H PRN PRN #270 ml 11/18/18 12/27/18 Rx mg(2.5 mg base)/3 mL nebulization soln miconazole nitrate [Earline 1 applic TP BID PRN 12/27/18 12/27/18 History Antifungal] nystatin 1 applic TP BID PRN 12/27/18 12/27/18 History Allergies Allergy/AdvReac Type Severity Reaction Status Date / Time venlafaxine Allergy Severe EYES Verified 12/20/18 13:35 SWELL; SHAKINESS benzonatate Allergy Intermediate FACIAL Verified 12/20/18 13:35 SWELLING meloxicam Allergy Intermediate ITCHING Verified 12/20/18 13:35 diclofenac Allergy Unknown Verified 12/20/18 13:35 misoprostol Allergy Unknown Verified 12/20/18 13:35 Exam Narrative Exam Narrative: General: Patient appears comfortable at time I examined her and is easily aroused. She is alert and oriented x3 and in no apparent distress. She is thin and appears appropriate for age. HEENT: Normocephalic with eyes revealing pupils equal and reactive light symmetrically, sclera anicteric and extraocular movement intact. Oropharynx with moist pink mucosa and fair dentition. External ears normal. External nose normal. Neck: Supple without JVD. Back: Stooped posture with no CVA tenderness. Breast: Exam deferred. Heart: Regular rate and rhythm with no murmurs or gallops appreciated. Lungs: Bronchovesicular breath sounds diffusely with increased expiratory phase and slight expiratory wheeze especially with cough, no rhonchi. Fine rales over her left base mostly but also over the upper airways of the left back and anterior chest. Abdomen: Soft, nontender with no palpable hepatosplenomegaly or masses. Bowel sounds positive all quadrants. Genitalia/rectal: Exam deferred. Extremities: Without clubbing, cyanosis or edema in all joints have full range of motion. Skin: Tanned with no rashes, warm and dry. There is a tattoo over her left back. Neuro: No nerves II through XII grossly intact, motor and sensory grossly intact with normal reflexes. Psych: Normal thought processes and mood, affect normal with good eye contact. Remote and recent memory intact. Results Imaging Imaging Studies: Exam(s) PROCEDURE INFORMATION: Exam: XR Chest, 2 Views Exam date and time: 12/27/2018 3:28 PM Clinical history: 53 years old, female; Cough and fever and shortness of breath; Patient HX: Cough, SOB, fever; Additional info: R/O pneumonia TECHNIQUE: Imaging protocol: XR of the chest Views: 2 views. COMPARISON: CR XR PORTABLE CHEST AP 03/15/2018 7:04 AM FINDINGS: Lungs: Patchy infiltrate at the left base. Pleural space: Unremarkable. No pleural effusion. No pneumothorax. Heart/Mediastinum: Unremarkable. No cardiomegaly. Bones/joints: Unremarkable. IMPRESSION: Patchy infiltrate at the left base. Dictated and Authenticated by: Cait Chew MD. Labs Result diagrams: 12/27/18 15:40 12/27/18 15:40 Labs: Laboratory Results - last 24 hr 12/27/18 12/27/18 12/27/18 15:40 15:40 15:40 WBC 21.29 H RBC 4.42 Hgb 13.9 Hct 40.9 MCV 92.5 MCH 31.4 MCHC 34.0 RDW 12.3 Plt Count 351 MPV 9.4 Immature Gran % 0.3 Neutrophils % 89.1 Lymphocytes % 3.7 Monocytes % 6.9 Eosinophils % 0.0 Basophils % 0.0 Absolute Neutrophils 18.97 H Absolute Lymphocytes 0.79 L Absolute Monocytes 1.47 H Absolute Eosinophils 0.00 Absolute Basophils 0.00 Sodium 137 Potassium 3.9 Chloride 101 Carbon Dioxide 26.0 Anion Gap 10.0 BUN 21 H Creatinine 0.56 Estimated GFR/1.73 m2 >= 60.00 Glucose 109 H Lactate 0.9 Calcium 9.3 Magnesium 2.0 Total Bilirubin 0.3 AST 15 ALT 29 Alkaline Phosphatase 81 Troponin I < 0.05 NT-Pro-B Natriuret Pep 120 Total Protein 7.7 Albumin 3.4 Last Vital Signs Temp 37.7 C H 12/27/18 16:56 Pulse 128 H 12/27/18 16:17 Resp 27 H 12/27/18 16:51 BP 111/79 12/27/18 16:51 Pulse Ox 87 L 12/27/18 16:51
[2018-12-27] MEDS: Pantoprazole 40 MG VIAL (20:41)
[2018-12-27] MEDS: Normal Saline 1,000 ML 125 ML IV (20:41)
[2018-12-28] VITALS (11 sets, daily range): BP systolic 117–139; BP diastolic 70–86; PULSE 68–94; RESP 1–20; TEMP 36.5–37.2; O2SAT 91–99
[2018-12-28] MEDS: methylPREDNISolone SUCC 125 MG VIAL 80 MG IVP ×3 (00:54→15:50)
[2018-12-28] MEDS: Normal Saline Flush 10 ML SYR IVP ×4 (00:55→19:51)
[2018-12-28] MEDS: Normal Saline 1,000 ML 125 ML IV ×2 (04:54→13:18)
[2018-12-28] MEDS: Albuterol/Ipratropium 3 ML UPD VIAL UPD ×4 (07:43→23:55)
[2018-12-28 07:50] LABS: HCT 37.8 % (36.0-46.0); HGB 12.5 g/dL (12.0-15.5); Mean Corp. HGB Concentration 33.1 g/dL (32.0-36.0); Mean Corpuscular Hemoglobin 31.3 pg (27.0-33.0); Mean Corpuscular Volume 94.5 fL (80-95); Mean Platelet Volume 9.8 fL (8.0-11.0); Platelet Count 350 x1000/uL (130-400); RBC Distribution Width 12.4 % (11.7-14.6)
[2018-12-28 08:03] LABS: ALT 33 U/L (14-59); AST 17 U/L (15-37); Albumin 2.7 g/dL (3.4-5.0); Alkaline Phosphatase 71 U/L (46-116); Anion Gap 6.8 mmol/L (3-11); BUN 20 mg/dL (7-18); Bilirubin, Total 0.1 mg/dL (0.2-1.0); CO2 27.2 mmol/L (21.0-32.0); CREATININE 0.48 mg/dL (0.55-1.02); Calcium 8.7 mg/dL (8.5-10.1); Chloride 110 mmol/L (98-107); Glucose 147 mg/dL (70-100); Potassium 4.1 mmol/L (3.5-5.1); Sodium 144 mmol/L (136-145); Total Protein 6.6 g/dL (6.4-8.2)
[2018-12-28] MEDS: Enoxaparin 30 MG/0.3 ML SYR SC (08:55)
[2018-12-28] MEDS: Pantoprazole 40 MG VIAL IVP (08:56)
[2018-12-28] MEDS: guaiFENesin 600 MG TABCR PO ×2 (08:56→19:51)
[2018-12-28] MEDS: Acetaminophen 325 MG TAB PO ×2 (09:07→23:54)
--- NOTE | 2018-12-28 09:08 | PDOC.CMIN ---
Care Management Initial Assess REASON FOR HOSPITALIZATION:: COPD Exacerbation w/Hypoxemia, CAP PAST MEDICAL HISTORY/PAST SURGICAL HISTORY:: Back pain, carpal tunnel syndrome, chronic obstructive lung disease type A, COPD, depression, dyspepsia, epigastric pain, gastric motor function disorder, hiatal hernia with GERD, loose stools, low back pain, mammogram abnormal, smoker, tinnitus, colonoscopy, EGD-MAC, foot surgery, bilateral tubal ligation, ligation of fallopian tube, open carpal tunnel release (right), foot surgery. PREVIOUS FUNCTIONAL STATUS/SOCIAL/FAMILY SUPPORTS:: Juhi lives with her , Sd in [facility]. She has two adult children, and nine grandchildren. She is independent with ADLs in the community. 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 She is on State disability. CURRENT FUNCTIONAL STATUS:: Juhi was sitting up in her chair, oxygen on, surrounded by family. She was forthcoming with information and pleasant in interaction. ADVANCE DIRECTIVES:: On file; Sd as agent. Has patient been provided with information about the portal?: Yes Did the patient sign up for the portal?: No CODE STATUS:: Full Code INSURANCE COVERAGE / FINANCIAL ISSUES:: Medicare. State Disability CURRENT HOME/COMMUNITY SERVICES/EQUIPMENT:: No current services or equipment, does have disability support through the [facility]. PRIMARY CARE PHYSICIAN:: Gay Cooper POTENTIAL DISCHARGE NEEDS:: Discuss attachment to services for smoking cessation, pain management. Follow up appointment with PCP; has appt scheduled with Gay Cooper 01/20/19. PATIENT/FAMILY EDUCATION NEEDS:: Review of discharge instructions, discuss Ask Me Three. ANTICIPATED BARRIERS TO DISCHARGE:: None identified. TRANSPORTATION:: Via private vehicle with family. PLAN:: Juhi continues to be closely monitored and treated for COPD with Hypoxia and CAP. CM continues to follow. Anticipate Juhi will return home, follow up with her PCP and additional services if agreeable. She will transport via private vehicle with family.
[2018-12-28 09:24] LABS: Procalcitonin 0.2 ng/mL
[2018-12-28] MEDS: Budesonide/Formoterol 160/4.5 6 GM 60 PUFF INH IH ×2 (10:02→19:50)
--- NOTE | 2018-12-28 15:03 | W.PM.PROGNOT ---
Date of Service Date of service: 12/28/18 Time of Service: 15:03 Assessment and Plan Assessment and plan (1) Community acquired pneumonia: Status: Acute Assessment and plan: Improving. With chest x-ray showing left lower lobe infiltrate. White blood cell count improved to 14.5 today from 21.29. She has been afebrile since last night at 1900. Continue ceftriaxone and azithromycin, supplemental oxygen as needed, scheduled nebulizer treatments. Continue IV Solu-Medrol. Add probiotics. Discontinue IV fluids as she is taking p.o. fluids well. Repeat complete blood count tomorrow morning. Sputum culture ordered. Qualifiers: Laterality: left Lung location: lower lobe of lung Qualified Code(s): J18.9 - Pneumonia, unspecified organism (2) COPD with acute exacerbation: Status: Acute Assessment and plan: In the setting of community-acquired pneumonia. She quit smoking 2 months ago. Treatment as above. (3) Hiatal hernia with GERD: Status: Chronic Assessment and plan: Stable. Continue IV PPI therapy. (4) DVT prophylaxis: Status: Acute Assessment and plan: Subcutaneous Lovenox. (5) Discharge planning issues: Status: Acute Assessment and plan: She is a full code. This case was discussed with Dr. Ang who is in agreement. Subjective Subjective Interval history since last seen: May reports feeling better today. She continues to have shortness of breath with activity, she continues to have a productive cough, her wheezing is improving. Her appetite has also improved. She reports that she did not eat or drink for 3 days prior to coming into the hospital and she is completing her meals here. She denies abdominal pain, nausea or vomiting. She reports having a loose stool today. Exam Narrative Exam Narrative: General: Thin female, appears stated age. Sitting at the edge of the bed in no acute distress. She is alert and oriented x3. She answers questions appropriately. She speaks in complete sentences without shortness of breath. HEENT: Normocephalic, atraumatic, pupils equal round, EOMI, mucous membranes moist. Neck: Supple, no JVD. Cardiovascular: Heart has regular rate and rhythm, no murmur appreciated. Non-tachycardic. Respiratory: Respirations appear even and unlabored, lungs sound clear throughout, no wheezing or rales. GI: Normoactive bowel sounds x4 quadrants, abdomen soft, nontender on palpation. Extremities: No clubbing, cyanosis or edema. Objective Objective Clinical Data: Abnormal lab results 12/27/18 12/27/18 12/28/18 Range/Units 15:40 15:40 06:45 WBC 21.29 H (4.4-10.8) k/cumm Absolute Neutrophils 18.97 H (1.2-6.7) k/cumm Absolute Lymphocytes 0.79 L (1.2-3.4) k/cumm Absolute Monocytes 1.47 H (0.11-0.7) k/cumm Chloride 110 H (98-107) mmol/L BUN 21 H 20 H (7-18) mg/dL Creatinine 0.48 L (0.55-1.02) mg/dL Glucose 109 H 147 H (70-100) mg/dL Total Bilirubin 0.1 L (0.2-1.0) mg/dL Albumin 2.7 L (3.4-5.0) g/dL 12/28/18 Range/Units 06:45 WBC 14.50 H D (4.4-10.8) k/cumm Absolute Neutrophils (1.2-6.7) k/cumm Absolute Lymphocytes (1.2-3.4) k/cumm Absolute Monocytes (0.11-0.7) k/cumm Chloride (98-107) mmol/L BUN (7-18) mg/dL Creatinine (0.55-1.02) mg/dL Glucose (70-100) mg/dL Total Bilirubin (0.2-1.0) mg/dL Albumin (3.4-5.0) g/dL Vital Signs Temperature 37.1 C 12/28/18 07:00 Temperature Source Tympanic 12/28/18 07:00 Pulse 81 12/28/18 13:02 Pulse Rhythm Regular 12/28/18 08:54 Pulse 107 H 12/27/18 18:40 Respiratory Rate 18 12/28/18 13:02 Respiratory Effort 12/28/18 08:54 Respiratory Depth Normal 12/28/18 08:54 Respiratory Pattern Normal 12/28/18 08:54 Blood Pressure 122/79 12/28/18 07:00 Blood Pressure Mean 78 12/27/18 18:30 Blood Pressure Position Supine 12/27/18 15:22 Pulse Oximetry 99 12/28/18 13:02 Oxygen Delivery Method Nasal Cannula 12/28/18 12:53 Oxygen Flow Rate 2 12/28/18 12:53 Pain Level 5 12/28/18 09:07 Comment 12/27/18 19:44 Intake & Output 12/27/18 12/28/18 12/28/18 23:59 11:59 23:59 Intake Total 1050 / 1050 1250 / 2370 1120 / 2370 Output Total 250 / 250 Balance 1050 / 1050 1000 / 2120 1120 / 2120 Weight 43.545 kg 43.1 kg Intake: IV 1050 / 1050 1250 / 2250 1000 / 2250 Oral 120 / 120 Output: Urine 250 / 250 Other: Urine Color Yellow Urine Appearance Clear Clear Comment Per PT Stool Size Moderate Stool Characteristics Soft Liquid Voiding Methods Toilet Laboratory Results WBC 14.50 k/cumm (4.4-10.8) H D 12/28/18 06:45 RBC 4.00 m/cumm (4.00-5.20) 12/28/18 06:45 Hgb 12.5 g/dL (12.0-15.5) 12/28/18 06:45 Hct 37.8 % (36.0-46.0) 12/28/18 06:45 MCV 94.5 fL (80-95) 12/28/18 06:45 MCH 31.3 pg (27.0-33.0) 12/28/18 06:45 MCHC 33.1 g/dL (32.0-36.0) 12/28/18 06:45 RDW 12.4 % (11.7-14.6) 12/28/18 06:45 Plt Count 350 x1000/uL (130-400) 12/28/18 06:45 MPV 9.8 fL (8.0-11.0) 12/28/18 06:45 Immature Gran % 0.3 12/27/18 15:40 Neutrophils % 89.1 12/27/18 15:40 Lymphocytes % 3.7 12/27/18 15:40 Monocytes % 6.9 12/27/18 15:40 Eosinophils % 0.0 12/27/18 15:40 Basophils % 0.0 12/27/18 15:40 Absolute Neutrophils 18.97 k/cumm (1.2-6.7) H 12/27/18 15:40 Absolute Lymphocytes 0.79 k/cumm (1.2-3.4) L 12/27/18 15:40 Absolute Monocytes 1.47 k/cumm (0.11-0.7) H 12/27/18 15:40 Absolute Eosinophils 0.00 k/cumm (0.0-0.7) 12/27/18 15:40 Absolute Basophils 0.00 k/cumm (0.0-0.2) 12/27/18 15:40 Sodium 144 mmol/L (136-145) 12/28/18 06:45 Potassium 4.1 mmol/L (3.5-5.1) 12/28/18 06:45 Chloride 110 mmol/L (98-107) H 12/28/18 06:45 Carbon Dioxide 27.2 mmol/L (21.0-32.0) 12/28/18 06:45 Anion Gap 6.8 mmol/L (3-11) 12/28/18 06:45 BUN 20 mg/dL (7-18) H 12/28/18 06:45 Creatinine 0.48 mg/dL (0.55-1.02) L 12/28/18 06:45 Estimated GFR/1.73 m2 >= 60.00 (mL/min/1.73m2) 12/28/18 06:45 Glucose 147 mg/dL (70-100) H 12/28/18 06:45 Lactate 0.9 mmol/L (0.6-1.4) 12/27/18 15:40 Calcium 8.7 mg/dL (8.5-10.1) 12/28/18 06:45 Magnesium 2.0 mg/dL (1.8-2.4) 12/27/18 15:40 Total Bilirubin 0.1 mg/dL (0.2-1.0) L 12/28/18 06:45 AST 17 U/L (15-37) 12/28/18 06:45 ALT 33 U/L (14-59) 12/28/18 06:45 Alkaline Phosphatase 71 U/L (46-116) 12/28/18 06:45 Troponin I < 0.05 ng/mL (0.00-0.06) 12/27/18 15:40 NT-Pro-B Natriuret Pep 120 pg/mL (-299) 12/27/18 15:40 Total Protein 6.6 g/dL (6.4-8.2) 12/28/18 06:45 Albumin 2.7 g/dL (3.4-5.0) L 12/28/18 06:45 Procalcitonin 0.2 ng/mL 12/28/18 06:45
[2018-12-28] MEDS: cefTRIAXone 1 GM/50 ML BAG IVPB (15:50)
--- NOTE | 2018-12-28 16:26 | PHARADMIT ---
Admission Pharmacy Clinical Review COPD EXACERBATION W/HYPOXEMIA, CAP Code Status Full Code Current Weight 43.1 kg Renally Cleared and Narrow Therapeutic Index Meds CrCl~54ml/min QTc Value / Action Taken QTC 440 in Mar 2018 BP Control, Fever BP 117/74 Afebrile Electrolytes reviewed WNL DVT Prophylaxis Lovenox 30mg...changed to 40mg for CrCl>30 Opiate Usage / Scheduled Bowel Regimen Ordered no/yes Bowel meds Plt/SCr for Heparin / Enoxaparin Plt 350 SCr 0.48 INR for Warfarin H/H stable, WBC/Bands H/H 12.5/37.8 WBC 14.5 (down from 21.29) IV steroids Antibiotic appropriateness Azithromycin/Ceftriaxone day#2 (Procalcitonin 0.2) Cultures and Sensitivities blood pending Surgical ABX d/c within 24 hr DM control / Insulin Dosing BG 147 Heart Failure (Check EF%) (PATRICIA's, B-Block, Diuretics) IV to PO Switch Home Meds Reviewed Home Meds Not Ordered ok Comments weaned off oxygen, Suonebs scheduled, IVF's dc'd chest xray: patchy infiltrate left lung
--- NOTE | 2018-12-28 16:30 | CHAPLAIN ---
Juhi was visiting with three grandchildren when I visited. She has eight that range in age from less than one to in their 20s. She seemed to be really enjoying their company. I explained my role and offered support.
[2018-12-28] MEDS: AZITHROMYCIN 500 MG in Normal Saline 250 ML 250 MG IVPB (17:13)
[2018-12-28] MEDS: Lactobacillus Acidophilus CAP 1 CAP PO (19:51)
[2018-12-29] VITALS (13 sets, daily range): BP systolic 109–142; BP diastolic 70–83; PULSE 67–86; RESP 1–19; TEMP 36.3–36.6; O2SAT 94–98
[2018-12-29] MEDS: methylPREDNISolone SUCC 125 MG VIAL 80 MG IVP (06:03)
[2018-12-29] MEDS: Normal Saline Flush 10 ML SYR IVP ×4 (06:04→17:27)
[2018-12-29] MEDS: Albuterol/Ipratropium 3 ML UPD VIAL UPD ×4 (06:04→23:36)
[2018-12-29 07:45] LABS: Abs Immature Grans 0.04 k/cumm (0.0-0.09); Absolute Basophil Count 0.01 k/cumm (0.0-0.2); Absolute Monocyte Count 1.06 k/cumm (0.11-0.7); Basophils % 0.1; HCT 34.4 % (36.0-46.0); Immature Grans % 0.3; Lymphocytes % 6.8; Mean Corpuscular Hemoglobin 30.5 pg (27.0-33.0); Mean Corpuscular Volume 95.3 fL (80-95); Mean Platelet Volume 9.8 fL (8.0-11.0); Monocytes % 7.2; Neutrophils % 85.6; Platelet Count 352 x1000/uL (130-400); RBC 3.61 m/cumm (4.00-5.20); RBC Distribution Width 12.5 % (11.7-14.6); White Blood Cell Count 14.75 k/cumm (4.4-10.8)
[2018-12-29 07:46] LABS: Absolute Neutrophil Count 12.63 k/cumm (1.2-6.7)
[2018-12-29 07:52] LABS: Anion Gap 5.9 mmol/L (3-11); BUN 20 mg/dL (7-18); CO2 27.1 mmol/L (21.0-32.0); CREATININE 0.49 mg/dL (0.55-1.02); Calcium 8.9 mg/dL (8.5-10.1); Chloride 107 mmol/L (98-107); Glucose 125 mg/dL (74-106); Magnesium 2.1 mg/dL (1.8-2.4); Potassium 4.1 mmol/L (3.5-5.1); Sodium 140 mmol/L (136-145)
[2018-12-29] MEDS: Budesonide/Formoterol 160/4.5 6 GM 60 PUFF INH IH ×2 (07:55→19:52)
[2018-12-29] MEDS: Pantoprazole 40 MG VIAL IVP (08:18)
[2018-12-29] MEDS: Enoxaparin 40 MG/0.4 ML SYR SC (08:18)
[2018-12-29] MEDS: Lactobacillus Acidophilus CAP 1 CAP PO ×3 (08:18→19:54)
[2018-12-29] MEDS: guaiFENesin 600 MG TABCR PO ×2 (08:18→19:53)
--- NOTE | 2018-12-29 13:09 | W.PM.PROGNOT ---
Date of Service Date of service: 12/29/18 Time of Service: 13:09 Assessment and Plan Assessment and plan (1) Community acquired pneumonia: Status: Acute Assessment and plan: Improving. Chest x-ray showed left lower lobe infiltrate. White blood cell count improved from admission, remains elevated in the setting of steroids. She remains afebrile, symptoms are improving. Continue ceftriaxone and azithromycin, supplemental oxygen as needed, scheduled nebulizer treatments. Continue probiotics. Transition to oral steroids. Continue to monitor leukocytosis. Blood culture with no growth at 24 hours. Sputum culture pending Qualifiers: Laterality: left Lung location: lower lobe of lung Qualified Code(s): J18.9 - Pneumonia, unspecified organism (2) COPD with acute exacerbation: Status: Acute Assessment and plan: Improving. In the setting of community-acquired pneumonia. She quit smoking 2 months ago. Treatment as above. (3) Hiatal hernia with GERD: Status: Chronic Assessment and plan: Stable. Continue IV PPI therapy. (4) DVT prophylaxis: Status: Acute Assessment and plan: Subcutaneous Lovenox. (5) Discharge planning issues: Status: Acute Assessment and plan: She is a full code. Care management is helping her get connected with community resources for prescription drug coverage. This case was discussed with Dr. Ang who is in agreement. Subjective Subjective Interval history since last seen: May reports feeling better today. Her shortness of breath is improving, she continues to have mild shortness of breath with activity. She continues to cough up thick yellow sputum. She does not feel wheezy. She does not feel dizzy or lightheaded. She is eating and drinking and tolerating her diet. No nausea, vomiting, abdominal pain. Her diarrhea has resolved, she had a normal bowel movement today. She is urinating without difficulty. She denies chest pain/pressure, palpitations. She reports mild lower extremity edema. Exam Narrative Exam Narrative: General: Thin female, appears stated age. Sitting up in the chair in no acute distress. She is alert and oriented x3. She answers questions appropriately. She speaks in complete sentences without shortness of breath. HEENT: Normocephalic, atraumatic, pupils equal round, EOMI, mucous membranes moist. Neck: Supple, no JVD. Cardiovascular: Heart has regular rate and rhythm, no murmur appreciated. Non-tachycardic. Respiratory: She is not on oxygen, her respirations appear even and unlabored, lungs sound clear throughout, no wheezing or rales. GI: Normoactive bowel sounds x4 quadrants, abdomen soft, nontender on palpation. Extremities: No clubbing, cyanosis or edema. Objective Objective Clinical Data: Abnormal lab results 12/29/18 12/29/18 Range/Units 06:45 06:45 WBC 14.75 H (4.4-10.8) k/cumm RBC 3.61 L (4.00-5.20) m/cumm Hgb 11.0 L (12.0-15.5) g/dL Hct 34.4 L (36.0-46.0) % MCV 95.3 H (80-95) fL Absolute Neutrophils 12.63 H (1.2-6.7) k/cumm Absolute Lymphocytes 1.00 L (1.2-3.4) k/cumm Absolute Monocytes 1.06 H (0.11-0.7) k/cumm BUN 20 H (7-18) mg/dL Creatinine 0.49 L (0.55-1.02) mg/dL Glucose 125 H (74-106) mg/dL Vital Signs Temperature 36.3 C L 12/29/18 08:05 Temperature Source Tympanic 12/29/18 08:05 Pulse 84 12/29/18 12:28 Pulse Rhythm Regular 12/29/18 08:20 Pulse 107 H 12/27/18 18:40 Respiratory Rate 18 12/29/18 12:28 Respiratory Effort 12/29/18 08:20 Respiratory Depth Normal 12/29/18 08:20 Respiratory Pattern Normal 12/29/18 08:20 Blood Pressure 109/70 12/29/18 08:05 Blood Pressure Mean 78 12/27/18 18:30 Blood Pressure Position Supine 12/27/18 15:22 Pulse Oximetry 98 12/29/18 12:28 Oxygen Delivery Method Room Air 12/29/18 12:15 Oxygen Flow Rate 0 12/29/18 12:15 Pain Level 0 12/29/18 08:05 Comment 12/27/18 19:44 Intake & Output 12/28/18 12/29/18 12/29/18 23:59 11:59 23:59 Intake Total 2965.417 / 4215.417 Output Total 300 / 550 300 / 300 Balance 2665.417 / 3665.417 -300 / -300 Intake: IV 1545.417 / 2795.417 Oral 1420 / 1420 Output: Urine 300 / 550 300 / 300 Other: Urine Color Yellow Yellow Urine Appearance Clear Clear Urine Odor Normal Normal Comment Per Patient Voiding Methods Toilet Toilet Laboratory Results WBC 14.75 k/cumm (4.4-10.8) H 12/29/18 06:45 RBC 3.61 m/cumm (4.00-5.20) L 12/29/18 06:45 Hgb 11.0 g/dL (12.0-15.5) L 12/29/18 06:45 Hct 34.4 % (36.0-46.0) L 12/29/18 06:45 MCV 95.3 fL (80-95) H 12/29/18 06:45 MCH 30.5 pg (27.0-33.0) 12/29/18 06:45 MCHC 32.0 g/dL (32.0-36.0) 12/29/18 06:45 RDW 12.5 % (11.7-14.6) 12/29/18 06:45 Plt Count 352 x1000/uL (130-400) 12/29/18 06:45 MPV 9.8 fL (8.0-11.0) 12/29/18 06:45 Immature Gran % 0.3 12/29/18 06:45 Neutrophils % 85.6 12/29/18 06:45 Lymphocytes % 6.8 12/29/18 06:45 Monocytes % 7.2 12/29/18 06:45 Eosinophils % 0.0 12/29/18 06:45 Basophils % 0.1 12/29/18 06:45 Absolute Neutrophils 12.63 k/cumm (1.2-6.7) H 12/29/18 06:45 Absolute Lymphocytes 1.00 k/cumm (1.2-3.4) L 12/29/18 06:45 Absolute Monocytes 1.06 k/cumm (0.11-0.7) H 12/29/18 06:45 Absolute Eosinophils 0.00 k/cumm (0.0-0.7) 12/29/18 06:45 Absolute Basophils 0.01 k/cumm (0.0-0.2) 12/29/18 06:45 Sodium 140 mmol/L (136-145) 12/29/18 06:45 Potassium 4.1 mmol/L (3.5-5.1) 12/29/18 06:45 Chloride 107 mmol/L (98-107) 12/29/18 06:45 Carbon Dioxide 27.1 mmol/L (21.0-32.0) 12/29/18 06:45 Anion Gap 5.9 mmol/L (3-11) 12/29/18 06:45 BUN 20 mg/dL (7-18) H 12/29/18 06:45 Creatinine 0.49 mg/dL (0.55-1.02) L 12/29/18 06:45 Estimated GFR/1.73 m2 >= 60.00 (mL/min/1.73m2) 12/29/18 06:45 Glucose 125 mg/dL (74-106) H 12/29/18 06:45 Lactate 0.9 mmol/L (0.6-1.4) 12/27/18 15:40 Calcium 8.9 mg/dL (8.5-10.1) 12/29/18 06:45 Magnesium 2.1 mg/dL (1.8-2.4) 12/29/18 06:45 Total Bilirubin 0.1 mg/dL (0.2-1.0) L 12/28/18 06:45 AST 17 U/L (15-37) 12/28/18 06:45 ALT 33 U/L (14-59) 12/28/18 06:45 Alkaline Phosphatase 71 U/L (46-116) 12/28/18 06:45 Troponin I < 0.05 ng/mL (0.00-0.06) 12/27/18 15:40 NT-Pro-B Natriuret Pep 120 pg/mL (-299) 12/27/18 15:40 Total Protein 6.6 g/dL (6.4-8.2) 12/28/18 06:45 Albumin 2.7 g/dL (3.4-5.0) L 12/28/18 06:45 Procalcitonin 0.2 ng/mL 12/28/18 06:45
[2018-12-29] MEDS: cefTRIAXone 1 GM/50 ML BAG IVPB (15:52)
--- NOTE | 2018-12-29 17:20 | CMPROGNOTE_ITS ---
Care Management Progress Note S/O: Juhi remains pleasant in interaction and surrounded by family. No change to overall discharge plan. CM continues to follow. A: 53 year old female admitted to [facility] 12/27/18 for COPD Exacerbation, CAP P: Juhi continues to be closely monitored and treated for COPD with Hypoxia and CAP. CM continues to follow. Anticipate Juhi will return home, follow up with her PCP and plan of care as prescribed. She will transport via private vehicle with family.
[2018-12-29] MEDS: AZITHROMYCIN 500 MG in Normal Saline 250 ML 250 MG IVPB (17:26)
[2018-12-29] MEDS: predniSONE 20 MG TAB 60 MG PO (19:52)
[2018-12-30] VITALS (8 sets, daily range): BP systolic 128–158; BP diastolic 66–82; PULSE 69–82; RESP 1–18; TEMP 37–37.2; O2SAT 94–99
[2018-12-30] MEDS: Albuterol/Ipratropium 3 ML UPD VIAL UPD ×2 (05:54→11:30)
[2018-12-30 06:49] LABS: HCT 36.2 % (36.0-46.0); HGB 11.9 g/dL (12.0-15.5); Mean Corp. HGB Concentration 32.9 g/dL (32.0-36.0); Mean Corpuscular Volume 94.3 fL (80-95); Mean Platelet Volume 9.4 fL (8.0-11.0); Platelet Count 401 x1000/uL (130-400); RBC 3.84 m/cumm (4.00-5.20); RBC Distribution Width 12.3 % (11.7-14.6); White Blood Cell Count 10.19 k/cumm (4.4-10.8)
[2018-12-30] MEDS: Budesonide/Formoterol 160/4.5 6 GM 60 PUFF INH IH (07:48)
[2018-12-30] MEDS: Pantoprazole 40 MG VIAL IVP (08:19)
[2018-12-30] MEDS: Normal Saline Flush 10 ML SYR IVP (08:19)
[2018-12-30] MEDS: predniSONE 20 MG TAB 60 MG PO (08:20)
[2018-12-30] MEDS: guaiFENesin 600 MG TABCR PO (08:20)
[2018-12-30] MEDS: Enoxaparin 40 MG/0.4 ML SYR SC (08:20)
[2018-12-30] MEDS: Lactobacillus Acidophilus CAP 1 CAP PO (08:20)
--- NOTE | 2018-12-30 09:51 | CMDISCH_ITS ---
LACE Index Scoring Tool - Questions: Length of Stay (in days): 3 Acuity (Admit via E.D.?): Yes Comorbidities: Chronic Pulmonary Disease E.D. Visits: 2 - Answers: Total Score: 10 Risk of Readmission: High Risk Care Management Discharge Reason for Hospitalization: COPD Exacerbation w/Hypoxemia, CAP Discharge Plan: Juhi will return home when ready per MD. CM referred Juhi to [facility]: spoke with Camelia, [facility]: spoke with MONICA Prado (contacted by Jacquelyn). CM provided info packet with steps to complete application for Extra Help through [facility]. Juhi was provided with inhaled steroid for discharge; RT reports 52 puffs remaining. Juhi will require support in attaining prescription coverage which she does not currently have. CM explained process and service providers to Juhi on discharge and provided contact info for each. Juhi reported understanding her discharge plan. She will transport via private vehicle with family. Patient/Family Education Needs: Review discharge instructions, discuss Ask Me Three.
--- NOTE | 2018-12-30 11:01 | W.PM.DS.N ---
Date of service: 12/30/18 Time of Service: 11:01 DS: Diagnosis Discharge Diagnosis (1) Community acquired pneumonia: Status: Acute (2) COPD with acute exacerbation: Status: Acute (3) Hiatal hernia with GERD: Status: Chronic (4) DVT prophylaxis: Status: Acute (5) Discharge planning issues: Status: Acute Discharge Plan Disposition Patient Disposition: HOME Condition: Stable Discharge Details Chief Complaint: GenMedical Clinical Impression: Pneumonia, COPD with acute exacerbation Reason For Visit: COPD EXACERBATION W/HYPOXEMIA, COMMUNITY ACQUIRED Admit Date/Time: 12/27/18 17:54 Admit Provider: Patric Andrade Attending Provider: Patric Andrade Primary Care Provider: Gay Cooper ED Provider: Karen Ontiveros Hospital Course Hospital Course: Juhi Clark is a very pleasant 53-year-old female with a past medical history significant for COPD, she quit smoking about 2 months ago, and a hiatal hernia with GERD, who presented to the emergency department on 12/27/2018 with fever, cough with yellow sputum production, shortness of breath, wheezing, fatigue, body aches and decreased appetite over the prior 2 days. She was noted to be tachycardic with heart rate in the 130s upon admission, her temperature was 99.9, her oxygen saturation was 90% on room air. Her labs were notable for leukocytosis with a white blood cell count of 21.29, she had a chest x-ray which was notable for left lower lobe infiltrate. She was given nebulizer treatments, IV steroids, IV fluids [facility] and continued observation management of left lower lobe pneumonia and COPD exacerbation. She was initiated on ceftriaxone and azithromycin and continued on IV steroids with scheduled nebulizer treatments. Her white blood cell count improved, her breathing improved. By the day of discharge, her white blood cell count was back to normal at 10.19, she was 96% on room air, she was afebrile. Her shortness of breath and cough were markedly improved. She was eager for discharge home. She will discharge home today with oral antibiotics for 3 more days to complete a total of a 5-day course, prednisone taper and nebulizer treatments. She will remain on Symbicort long-term, as she would benefit from an inhaled corticosteroid. Ms Clark did not have prescription drug coverage, care management is working with her on obtaining appropriate coverage. She will follow-up with her primary care provider as an outpatient. Home Meds and New Rx's Prescriptions: New acidophilus-pectin, citrus 25 million cell -100 mg Tablet 1 cap PO TID Qty: 12 RF: 0 guaifenesin [Mucinex] 600 mg Tablet Extended Release 12hr 600 mg PO BID Qty: 8 RF: 0 prednisone 10 mg tablet 10 mg PO DAILY Qty: 30 RF: 0 azithromycin 500 mg tablet 500 mg PO DAILY Qty: 2 RF: 0 cefuroxime axetil 250 mg tablet 250 mg PO BID Qty: 5 RF: 0 Continued (DME) Aeroeclipse Reusable BAN 1 EACH misc 1 ea Miscellaneous TID Qty: 1 RF: 0 albuterol sulfate [ProAir HFA] 8.5 GM HFA aerosol inhaler 2 puff Inhalation Q2H PRN PRN (Reason: shortness of breath or wheezing) Qty: 8.5 RF: 0 miconazole nitrate [Earline Antifungal] 2 % cream 1 applic TP BID PRNRF: 0 nystatin 100,000 unit/gram powder 1 applic TP BID PRNRF: 0 ipratropium-albuterol 0.5 mg-3 mg(2.5 mg base)/3 mL solution for nebulization 3 ml UPD Q4H PRN PRN (Reason: shortness of breath or wheezing) Qty: 30 RF: 3 Symbicort 160-4.5 mcg/actuation Hfa Aerosol Inhaler 2 puff Inhalation BID Qty: 10.2 RF: 0 Discharge Instructions Instructions: COPD (Chronic Obstructive Pulmonary Disease) (DC), Community Acquired Pneumonia (DC) Additional Instructions: Taper prednisone as follows: take 4 tabs (40 mg) x3 days, then 3 tabs (30 mg) x3 days, then 2 tabs (20 mg) x3 days then 1 tab (10mg) x3 days then stop. Take the antibiotics until they are gone (2 more days). Duoneb nebulizer treatments as needed for wheezing or shortness of breath. Continue Symbicort twice a day. Take care! Stand Alone Forms: Nursing Discharge Form Referrals: Gay Cooper MD, [place] [Primary Care Provider] - (The office will contact you with an appointment) Activity:: Activity as Tolerated Equipment/Supplies:: No Equipment Needed Diet:: As Tolerated Discharge Orders Discharge Orders: Discharge Order (Routine); Ordered 12/30/18 Ordered By: Sinai Paulino DS: Summary Status at Discharge Functional status at discharge: independent ambulation Overall status at discharge: patient is progressing back to baseline Mental Status: mental status grossly normal Speech and Movement: speech and movement normal Mood: congruent mood Affect: normal affect Exam Narrative Exam Narrative: General: Thin female, appears stated age. Sitting up in the chair in no acute distress. She is alert and oriented x3. She answers questions appropriately. She speaks in complete sentences without shortness of breath. HEENT: Normocephalic, atraumatic, pupils equal round, EOMI, mucous membranes moist. Neck: Supple, no JVD. Cardiovascular: Heart has regular rate and rhythm, no murmur appreciated. Non-tachycardic. Respiratory: She is not on oxygen, her respirations appear even and unlabored, lungs with occasional scattered wheeze. GI: Normoactive bowel sounds x4 quadrants, abdomen soft, nontender on palpation. Extremities: No clubbing, cyanosis or edema. Psych Mental Status: mental status grossly normal Speech and Movement: speech and movement normal Mood: congruent mood Affect: normal affect DS: Data Vitals/I&O Vitals and I&O: Vital Signs Temperature 37.1 C 12/30/18 07:17 Temperature Source Skin 12/30/18 07:17 Pulse 81 12/30/18 07:17 Pulse Rhythm Regular 12/30/18 08:59 Pulse 107 H 12/27/18 18:40 Respiratory Rate 16 12/30/18 07:45 Respiratory Effort Non-Labored 12/30/18 08:59 Respiratory Depth Normal 12/30/18 08:59 Respiratory Pattern Normal 12/30/18 08:59 Blood Pressure 128/66 12/30/18 07:17 Blood Pressure Mean 78 12/27/18 18:30 Blood Pressure Position Supine 12/27/18 15:22 Pulse Oximetry 96 12/30/18 07:44 Oxygen Delivery Method Room Air 12/30/18 07:44 Oxygen Flow Rate 0 12/30/18 07:44 Pain Level 0 12/30/18 07:17 Comment 12/27/18 19:44 Intake & Output 12/29/18 12/29/18 12/30/18 11:59 23:59 11:59 Intake Total 360 / 1220 860 / 1220 Output Total 300 / 300 300 / 300 Balance 60 / 920 860 / 920 -300 / -300 Weight 46.4 kg 46.2 kg Intake: IV 500 / 500 Oral 360 / 720 360 / 720 Output: Urine 300 / 300 300 / 300 Other: Urine Color Yellow Yellow Urine Appearance Clear Clear Clear Urine Odor Normal Normal Comment Per Patient Voiding Methods Toilet Toilet Data Completed and Pending Completed studies during hospitalization [Text1]: 12/27/18: EXAM: XR CHEST 2V PA LATERAL INDICATION: cough, sob, fever, r/o pneumonia. COMPARISON: XR PORTABLE CHEST AP from 03/15/2018 TECHNIQUE: 2D digital imaging was performed. FINDINGS: The heart sizeis normal. The lungs again show emphysematous and fibrotic changes. There is question of a patchy infiltrate at the left lung base versus chronic changes. Scoliosis is noted in the spine. No pneumothorax is seen. IMPRESSION: Patchy infiltrate in the left lung base. Labs on day of discharge: Labs from last 24 hours 12/30/18 06:20 WBC 10.19 D RBC 3.84 L Hgb 11.9 L Hct 36.2 MCV 94.3 MCH 31.0 MCHC 32.9 RDW 12.3 Plt Count 401 H MPV 9.4 12/28/18 23:55 Sputum - Expectorated Sputum Culture - Pending Preliminary micro results at discharge 12/27/18 16:23 Blood Culture - Preliminary Blood NO GROWTH 48 HOURS 12/27/18 16:13 Blood Culture - Preliminary Blood NO GROWTH 48 HOURS 12/28/18 23:55 Sputum Culture - Pending Sputum - Expectorated [facility] Medical History Back pain Carpal tunnel syndrome (Resolved) R Carpal tunnel syndrome of right wrist Chronic obstructive lung disease, type A (Chronic) continues to smoke COPD (chronic obstructive pulmonary disease) Depression Dyspepsia Epigastric pain Gastric motor function disorder (Chronic) Hiatal hernia with GERD (Chronic 04/27/17) Loose stools Low back pain (Chronic) SAcraliliac pain. MRI negative for lumbar pathology; T11,T12 left disc herniation. Has been to spine clinic; does get comfort from chiropractic Mammogram abnormal (Resolved) cat 3; did not return for F/U Smoker (Acute) quit in 2003; restarted; down to 3/day 11/08/18 - has not smoked for 5 days while ill with URI Tinnitus (Resolved) Surgical History Colonoscopy - MAC (04/27/17) EGD - MAC (04/27/17) foot surgery (07/11/11) History of bilateral tubal ligation (Resolved) Ligation of fallopian tube Open Carpal Tunnel release (02/15/16) right S/P carpal tunnel release (Resolved) right S/P foot surgery (Resolved) 07/11/11 Family History Mother , age 73 Diabetes Heart disease Hyperlipidemia Sepsis Asthma Father , age 58 Lymph node cancer Sister Lymph node cancer Sister , age 56 Chronic obstructive lung disease Asthma Brother No problems noted. Brother No problems noted. Brother No problems noted. Maternal Grandfather Stroke Paternal Grandfather Pulmonary tuberculosis Maternal Grandmother Heart disease Emphysema lung Asthma Paternal Grandmother Cancer Spider Son No problems noted. Daughter Substance abuse Depression Cervical cancer Social History Smoking/Tobacco Use Status: Former Tobacco Use Tobacco: How many years used: 30 Second Hand Exposure: Yes Alcohol Intake: current Alcohol Intake frequency: 0-2 drinks per day Alcohol type: beer Drug use: Never Substance use type: does not use Caregiver/Support person: No Household members: spouse and other Details: grandchildren Housing: house Communication Needs: None current occupation: [employer] Pets and animals: Yes Pets and animals: cat(s) and dog(s) Sexually active: Yes Do you think of yourself as: straight/heterosexual Current gender identity: male What is your relationship status?: How often do you talk on the phone with friends or family?: three or more times per week How often do you get together with friends or relatives?: three or more times per week How often do you attend restoration or tenriism services?: decline to answer Do you belong to any clubs or organized social groups?: no Panel score (0-1 are the most socially isolated patients): 2 What type of physical activity do you participate in: decline to answer Duration: decline to answer Frequency: decline to answer Alley/Rastafarian: No preference Special alley needs: No Seatbelt use: always Helmet use: Yes Helmet use: always Drive intox or ride w/intox school bus driver/custodian: No Do you feel safe at home: Yes
== END 2018-12-30 12:58 | disposition home or self-care (01) | DRG 190 ==
LOC: ER 18:32 → MS 18:51
PROVIDERS: Nurse Practitioner; Admitting Provider Family Medicine; Emergency Provider Physician Assistant; PCP Family Medicine; Visit Provider Internal Medicine
DX: J44.1 Chronic obstructive pulmonary disease with (acute) exacerbation (principal); J18.1 Lobar pneumonia, unspecified organism; Z87.891 Personal history of nicotine dependence; R09.02 Hypoxemia; J44.0 Chronic obstructive pulmonary disease with (acute) lower respiratory infection; K44.9 Diaphragmatic hernia without obstruction or gangrene; K21.9 Gastro-esophageal reflux disease without esophagitis
CPT/HCPCS: 36410; 36415; 80048; 80053; 84145; 85027; 87040; 87449; 93005; 94640; 96360; 99223; 99232; 99239; 99285; J1650; 71046; 83605; 83735; 83880; 84484; 85025; 87070; 87205; 93010; 94667; J0456; J0696; J1885; J2930; J7512; J7613; J7620

== ENCOUNTER 2019-01-27 00:31 | Outpatient (CLI) | payer MEDICARE, SELFPAY ==
--- NOTE | 2019-01-27 11:44 | DI.MAMMO_ITS ---
EXAM: MAMMO SCREENING CLINICAL HISTORY: screening Z12.39 TECHNIQUE: Mammograms were interpreted according to the usual protocol including computer analysis w [employer] CAD system, tomosynthesis and C-view imaging. COMPARISON: Current examination is compared with previous examination including December 2017 FINDINGS: The breasts are heterogeneously dense. No dominant mass or clumped microcalcification is identified in either breast. Current examination is compared with previous examinations including December 2017 and there has been no gross change in appearance in comparison with the previous studies. IMPRESSION: No specific evidence of malignancy at this time. Routine screening examinations are suggested at year ly intervals due to the family history of breast carcinoma. Category 1, breast density category C. BI-RADS Cat 1 - Negative Breast Density - Category C - Heterogeneously dense
== END 2019-01-27 00:51 ==
PROVIDERS: PCP Family Medicine; Visit Provider Family Medicine
DX: Z12.31 Encounter for screening mammogram for malignant neoplasm of breast (principal); Z80.3 Family history of malignant neoplasm of breast
CPT/HCPCS: 77063; 77067

== ENCOUNTER 2019-04-04 01:21 | Outpatient (CLI) | payer MEDICARE, SELFPAY ==
--- NOTE | 2019-04-04 14:00 | DI.CTLCSR_ITS ---
EXAM: CT CHEST LUNG CANCER SCREEN CLINICAL HISTORY: SCREENING FOR LUNG CANCER Z87.891 HX NICOTINE DEPENDENCE TECHNIQUE: Noncontrast CT examination of chest was performed utilizing low-dose lung cancer screenin g protocol. COMPARISON: No exams were available for comparison FINDINGS: There are diffuse predominantly central lobular emphysematous changes of the lungs. No significant i ntrapulmonary nodule seen. No mediastinal or hilar adenopathy. Tracheobronchial tree appears intact . No pleural effusion. Images obtained through the upper abdomen show grossly unremarkable appearance of visualized portions of liver and spleen. IMPRESSION: Negative lung cancer screening CT, category 1. Continue annual screening with LDCT in 12 months. Lung RADS Cat 1 - Negative: No nodules and definitely benign nodules
== END 2019-04-04 01:41 ==
PROVIDERS: PCP Family Medicine; Visit Provider Family Medicine
DX: Z87.891 Personal history of nicotine dependence (principal); Z12.2 Encounter for screening for malignant neoplasm of respiratory organs
CPT/HCPCS: G0297

== ENCOUNTER 2019-04-25 12:07 | Outpatient (REF) | payer MEDICARE, SELFPAY | END 2019-04-25 12:27 | LOC: LBN 12:07 | PROVIDERS: PCP Family Medicine; Visit Provider Internal Medicine | DX: R05 Cough (principal) | CPT/HCPCS: 87070 ==

== ENCOUNTER 2019-07-01 13:53 | Outpatient (CLI) | payer MEDICARE, SELFPAY ==
[2019-07-02 01:32] LABS: COVID-19 RT-PCR UVMMC Result Negative (Negative)
== END 2019-07-01 14:13 ==
PROVIDERS: PCP Family Medicine; Visit Provider Internal Medicine
DX: Z03.818 Encounter for observation for suspected exposure to other biological agents ruled out (principal)
CPT/HCPCS: U0003

== ENCOUNTER 2019-11-07 15:19 | Inpatient (IN) | payer MEDICARE, SELFPAY ==
[2019-11-07] VITALS (25 sets, daily range): BP systolic 107–143; BP diastolic 64–81; PULSE 79–126; RESP 8–31; TEMP 36.6–37.1; O2SAT 86–97
--- NOTE | 2019-11-07 15:45 | DI.RAD_ITS ---
EXAM: XR PORTABLE CHEST AP CLINICAL HISTORY: SOB, hx COPD TECHNIQUE: 2D digital imaging was performed. COMPARISON: CR,XR XR CHEST 2V PA LATERAL from 12/27/[address] CHEST LUNG CANCER SCREEN from 04/04/2019 FINDINGS: The heart size is normal. There are underlying changes of emphysema. The lungs are hyperinflated. There are increased interstitial markings near the lung bases which appear more prominent when compar ed with the previous exam. The findings could represent pneumonitis or interstitial edema. There is no focal area of consolidation or effusion. Degenerative changes scoliosis are noted in the spine. IMPRESSION: Bilateral lower lobe diffuse interstitial infiltrates which could represent pneumonitis versus pulmon erika edema.
--- NOTE | 2019-11-07 15:45 | RT.EKG_ITS ---
APPROVED REPORT Exam: Resting ECG Patient Location: E HR:105 bpm ECG Measurements Heart Rate 105 AXIS WI 105 P 87 QRSd 81 QRS 98 QT 331 T 28 QTc 438 Conclusion Sinus tachycardia...rate> 99
--- NOTE | 2019-11-07 15:51 | ED.GENADUL_ITS ---
Discharge Plan Disposition Patient Disposition: [facility] INPATIENT Condition: Fair Discharge Details Chief Complaint: SOB Clinical Impression: Pneumonia, Tongue coating, COPD with acute exacerbation Admit Date/Time: 11/07/19 20:15 Admit Provider: Patric Dennis Attending Provider: Patric Dennis Primary Care Provider: Gay Cooper ED Provider: Luna Trinh Discharge Data Discharge Date/Time-TO BE ENTERED AT DEPARTURE: 11/07/19 21:20 Medical Decision Making Patient is a pleasant 54-year-old female presents today with chief complaint of shortness of breath, cough, body aches and subjective fevers. She reports this began 2 days ago and is progressively been increasing. She reports that it does feel very similar to when she is had pneumonia and COPD exacerbation historically. Past medical history pertinent for COPD, GERD. She reports that she did have a DVT when she was . She is not anticoagulated. Has not had any since depression 30 years ago. States sudden onset of this increasing shortness of breath but she reports that she does not chronically use 2 L nasal cannula for her COPD. Patient is an active smoker but states since she has been so short of breath for the past 2 days she has not been able to do so. She denies any abdominal pain. Reports that she has had 4 loose bowel movements today but denies any blood in her stool. On exam, patient appears short of breath. She was initially 86% but when I saw her was 96 when at rest. She is on her baseline 2 L nasal cannula. Her heart rate was also noted to be 126 this is come down to 1 at the time I evaluated her. She has diffuse wheezing and does have lessened air movement in the lower lobes. No lower extremity edema. She does appear dry. We will hydrate the patient, give Tylenol for her body aches, pain blood work, chest x- ray. I will have respiratory evaluate the patient. We will begin her on a nebulizer and give Solu-Medrol. Patient was evaluated by respiratory therapy. 3 [id number] nebulizers were g iven and patient reports no improvement in her shortness of breath. Tachycardia persists but per this may now be medication induced. She does not objectively look like she is breathing more comfortably. Labs are reviewed. White count is elevated at 8. This with culture of pneumonia. Her d-dimer is elevated at 5. We will move forward with CT for PE protocol. I discussed this with the patient who is in agreement. Troponin is less than 0.05. This is been going on for last few days plan to repeat the troponin. Chest x-ray was reviewed by radiologist and does show an ill-defined right basilar opacity concerning for pneumonia. Patient reports that she continues to have severe body aches. She does have a listed allergy to meloxicam as well as diclofenac which she reports that she is done well with Toradol historically, we will give her IV Toradol. FINDINGS: Pulmonary arteries: Normal caliber main pulmonary artery. No evidence of pulmonary embolus. Aorta: Normal caliber aorta. Thyroid: Unremarkable visualized thyroid. Lungs: Centrilobular emphysematous changes both lungs. There are spiculated appearing lesions at the right lung apex measuring up to 9 mm. Please see image 6 series 4. There are multifocal ground-glass and nodular opacities with right lung predominance. Early consolidation is suspected within the right lower lobe. Pleural space: No pneumothorax. No sizeable pleural effusion. Heart: Heart is normal size. Lymph nodes: No suspicious lymphadenopathy. Adrenals: There is thickening of the left adrenal gland without definite underlying nodule or mass. Bones/joints: Scattered bony degenerative changes. No acute fractures or dislocations. Soft tissues: Unremarkable. IMPRESSION: 1. No evidence of pulmonary embolus. 2. Multifocal bilateral ground-glass and nodular like opacities with right lung predominance suspicious for a multifocal infectious process. Early consolidative changes are suspected within the right lower lobe. Short-term follow-up following any prescribed treatment or therapy is recommended to document resolution. 3. There are spiculated lesions at the right lung apex which could represent fibrotic change. Attention on follow-up imaging. Discussed fidnings with [facility] patient. Will begin IV abx. She has received IV steroids. Is on her baselie 2L NC. Given the quik drop in O2 with minimal movement and findings on imaging, I advised admission which patient is in agreement with. Consulted with Dr. Dennis who agrees to admission for COPD with pneumonia. COVID pending, patient PUI. HPI General Mode of arrival: wheelchair . Date/Time Provider Initiated Documentation: 11/07/19 15:45 . Limitations to Documentation: no limitations . Information obtained by: patient, RN notes reviewed and old records reviewed . History of Present Illness 54 year old F presents to the emergency department with the chief complaint of SOB, cough, body aches, described as severe and similar to prior episodes (states feels similar to pneumonia and COPD she has had historically), with intensity rated at 9. Quality is described as aching (reports generalized body aches), Patient started experiencing this day(s) (2) and it has been constant. No relieving factors improve symptom(s), No exacerbating factors reported . Patient notes cough, fever/chills, loss of appetite and shortness of breath; denies chest pain, nausea/vomiting, rash and weakness. Patient did receive the following treatments prior to arrival, none Related Data Home Medications Medication Instructions Recorded Confirmed Aeroeclipse Reusable BAN #1 ea 04/12/13 05/17/19 miconazole nitrate [Earline 1 applic TP BID PRN 12/27/18 11/07/19 Antifungal] nystatin 1 applic TP BID PRN 12/27/18 11/07/19 albuterol sulfate 90 mcg/actuation 2 puff INHALATION Q2H PRN PRN #8.5 03/10/19 11/07/19 aerosol inhaler gm melatonin 5 mg tablet 5 mg PO HS PRN 04/11/19 11/07/19 ipratropium 0.5 mg-albuterol 3 mg 3 ml UPD Q4H PRN PRN #180 ml 07/13/19 11/07/19 (2.5 mg base)/3 mL nebulization soln budesonide-formoterol HFA 80 2 puff IH BID 07/26/19 11/07/19 mcg-4.5 mcg/actuation aerosol inhaler mirtazapine 15 mg tablet 15 mg PO QHS #90 tab 07/26/19 11/07/19 umeclidinium 62.5 mcg-vilanterol 1 inh IH DAILY 07/26/19 11/07/19 25 mcg/actuation powdr for inhalation Previous Rx's Medication Instructions Recorded albuterol sulfate 90 mcg/actuation 2 puff INHALATION Q2H PRN PRN #8.5 03/10/19 aerosol inhaler gm ipratropium 0.5 mg-albuterol 3 mg 3 ml UPD Q4H PRN PRN #180 ml 07/13/19 (2.5 mg base)/3 mL nebulization soln mirtazapine 15 mg tablet 15 mg PO QHS #90 tab 07/26/19 Allergies Allergy/AdvReac Type Severity Reaction Status Date / Time venlafaxine Allergy Severe EYES Verified 11/07/19 15:34 SWELL; SHAKINESS benzonatate Allergy Intermediate FACIAL Verified 11/07/19 15:34 SWELLING meloxicam Allergy Intermediate ITCHING Verified 11/07/19 15:34 diclofenac Allergy Unknown Verified 11/07/19 15:34 misoprostol Allergy Unknown Verified 11/07/19 15:34 General Stated Complaint: SOB ANDREA: 3 Review of Systems Constitutional Constitutional: Reports as per HPI, Denies chills, Reports fever(s) (subjec tive), Denies headache(s), Reports lethargy and Denies poor appetite Eyes Eyes: Denies change in vision ENT Ears, Nose, Mouth, and Throat: Denies dizziness and Denies headache(s) Cardiovascular Cardiovascular: Reports as per HPI, Denies chest pain, Denies chest pain at rest, Denies leg edema, Denies lightheadedness, Denies radiating jaw, neck or arm pain, Reports dyspnea and Reports dyspnea on exertion Respiratory Respiratory: Reports as per HPI, Reports chest congestion, Reports cough, Denies pain on inspiration, Denies pain with cough, Reports dyspnea, Reports dyspnea on exertion and Reports wheezing Gastrointestinal Gastrointestinal: Reports as per HPI, Denies abdominal pain, Denies diarrhea, Denies nausea and Denies vomiting Musculoskeletal Musculoskeletal: Reports as per HPI and Denies back pain Integumentary/Breasts Skin/Breast: Reports as per HPI and Denies rash Neurologic Neurologic: Reports as per HPI, Denies dizziness and Denies headache(s) Allergic/Immunologic Allergic/Immunologic: Reports wheezing [facility] Medical History Abnormal mammography Acute respiratory failure with hypoxia Back pain Carpal tunnel syndrome R Carpal tunnel syndrome of right wrist Chronic obstructive lung disease, type A continues to smoke Community acquired pneumonia COPD (chronic obstructive pulmonary disease) Depression Discharge planning issues DVT prophylaxis Dysfunctional uterine bleeding Dyspepsia Epigastric pain Gastric motor function disorder Hiatal hernia with GERD (04/27/17) Hypoxemia Influenza A Loose stools Low back pain SAcraliliac pain. MRI negative for lumbar pathology; T11,T12 left disc herniation. Has been to spine clinic; does get comfort from chiropractic Mammogram abnormal cat 3; did not return for F/U Pressure sore on buttocks Sepsis Smoker quit in 2003; restarted; down to 3/day 11/08/18 - has not smoked for 5 days while ill with URI Tinnitus Surgical History Colonoscopy - MAC (04/27/17) EGD - MAC (04/27/17) foot surgery (07/11/11) History of bilateral ligation of fallopian tubes History of bilateral tubal ligation Ligation of fallopian tube Open Carpal Tunnel release (02/15/16) right S/P carpal tunnel release right S/P foot surgery 07/11/11 Status post carpal tunnel release Status post foot surgery Family History Mother , age 73 Diabetes Heart disease Hyperlipidemia Sepsis Asthma Father , age 58 Lymph node cancer Sister Lymph node cancer Sister , age 56 Chronic obstructive lung disease Asthma Brother No problems noted. Brother No problems noted. Brother No problems noted. Maternal Grandfather Stroke Paternal Grandfather Pulmonary tuberculosis Maternal Grandmother Heart disease Emphysema lung Asthma Paternal Grandmother Cancer Spider Son No problems noted. Daughter Substance abuse Depression Cervical cancer Social History Smoking/Tobacco Use Status: Former Tobacco Use Tobacco: How many years used: 30 Second Hand Exposure: Yes Alcohol Intake: current Alcohol Intake frequency: 0-2 drinks per day Alcohol type: beer Drug use: Never Substance use type: does not use Caregiver/Support person: No Household members: spouse and other Details: grandchildren Housing: house Communication Needs: None current occupation: [employer] Pets and animals: Yes Pets and animals: cat(s) and dog(s) Sexually active: Yes Do you think of yourself as: straight/heterosexual Current gender identity: male What is your relationship status?: How often do you talk on the phone with friends or family?: three or more times per week How often do you get together with friends or relatives?: three or more times per week How often do you attend samaritan or adventism services?: decline to answer Do you belong to any clubs or organized social groups?: no Panel score (0-1 are the most socially isolated patients): 2 What type of physical activity do you participate in: decline to answer Duration: decline to answer Frequency: decline to answer Alley/Shinto: No preference Special alley needs: No Seatbelt use: always Helmet use: Yes Helmet use: always Drive intox or ride w/intox motorcoach driver: No Do you feel safe at home: Yes Exam Const General: cooperative, well developed, in distress (appears SOB) and ill appearing acutely Nutritional Appearance: average body habitus and well nourished Orientation: alert, awake and oriented x3 HENMT Head: normal to inspection Ears: hearing grossly normal bilaterally Mouth: mucous membranes dry (dry) Chest Chest: normal inspection of the chest, normal palpation of entire chest wall and no crepitus Resp Effort & Inspection: cough Quality of cough: wet, pursed lip breathing, tachypneic, no tracheal deviation and uses accessory muscles Auscultation: diminished lung sounds bilaterally throughout, no rales, no rhonchi and wheezes expiratory wheezes and scattered wheezes Cardio Rate: tachycardic Rhythm: regular rhythm Heart Sounds: S1 normal and S2 normal GI Inspection: normal to inspection, no edema and non-distended Palpation: soft, no hepatosplenomegaly, not firm, no guarding, not rigid and nontender Auscultation: normal bowel sounds Back/Spine/Pelvis Back: no CVA tenderness Thoracic/Lumbar Spine: thoracic and lumbar spine normal to inspection Skin General skin exam: no rashes or lesions noted Trauma: no lacerations or abrasions Neuro General: patient alert, patient awake and patient oriented x3 Cognition: normal cognition Speech: speech normal Gait: normal gait Extrem General: normal to inspection, capillary refill normal, no pedal edema, no calf tenderness and normal gait Psych Appearance: grossly normal and well kempt Mental Status: mental status grossly normal Speech and Movement: speech and movement normal Course Vital Signs Vital signs: Vital Signs Temperature 37 C 11/07/19 15:30 Pulse 126 H 11/07/19 15:30 Respiratory Rate 11/07/19 15:30 Blood Pressure 137/80 11/07/19 15:30 Pulse Oximetry 86 L 11/07/19 15:30 Temperature 37 C 11/07/19 15:30 Temperature Source Skin 11/07/19 15:30 Pulse 126 H 11/07/19 15:30 Respiratory Rate 11/07/19 15:30 Respiratory Effort Labored 11/07/19 15:30 Blood Pressure 137/80 11/07/19 15:30 Blood Pressure Position Sitting 11/07/19 15:30 Pulse Oximetry 86 L 11/07/19 15:30 Oxygen Delivery Method Nasal Cannula 11/07/19 15:30 Oxygen Flow Rate 2 11/07/19 15:30 Pain Level 9 11/07/19 15:30
[2019-11-07] MEDS: methylPREDNISolone SUCC 125 MG VIAL IVP (16:36)
[2019-11-07] MEDS: Acetaminophen 500 MG TAB 1000 MG PO (16:36)
[2019-11-07] MEDS: Albuterol/Ipratropium 3 ML UPD VIAL UPD ×2 (16:36→22:05)
[2019-11-07] MEDS: Normal Saline Flush 10 ML SYR IVP (16:38)
[2019-11-07] MEDS: Lactated Ringers 1,000 ML 500 ML IV (16:40)
[2019-11-07 16:47] LABS: Absolute Basophil Count 0.02 10^3/uL (0.0-0.2); Absolute Lymphocyte Count 0.59 10^3/uL (1.2-3.4); Absolute Monocyte Count 1.07 10^3/uL (0.1-0.8); Absolute Neutrophil Count 16.73 10^3/uL (1.2-6.7); Basophils % 0.1; HCT 40.1 % (36.0-46.0); HGB 13.3 g/dL (11.2-15.7); Immature Grans % 0.5; Lymphocytes % 3.2; MCHC 33.2 % (32.0-36.0); MCV 93.5 fL (80-95); MPV 9.8 fL (8.0-11.0); Monocytes % 5.8; Neutrophils % 90.4; Nucleated RBC 0 %; Platelet Count 298 10^3/uL (130-400); RBC 4.29 10^6/uL (3.93-5.22); RDW 12.1 % (11.7-14.6); WBC 18.51 10^3/uL (4.4-10.8)
[2019-11-07] MEDS: Albuterol/Ipratropium 3 ML UPD VIAL (17:02)
--- NOTE | 2019-11-07 17:15 | DI.CT_ITS ---
EXAM: CT CHEST PE CTA CLINICAL HISTORY: SOB, elevated d-dimer. TECHNIQUE: Imaging Protocol: Axial CT angiography was performed with multi-slice acquisition and mu lti-planar and/or 3D reconstructions. CONTRAST MATERIAL: Intravenous: Omnipaque 350 Contrast volume:52 ml COMPARISON: CT ABD PELVIS WITH CONTRAST from 04/29/2017 CR,XR XR CHEST 2V PA LATERAL from 12/27/2018 FINDINGS: Pulmonary Arteries: No evidence of filling defect to suggest pulmonary emboli. Tracheobronchial tree: Patent where visualized. Mediastinum and Irene: No dominant adenopathy or fluid collection. Pulmonary parenchyma: Emphysematous changes and scarring, greater in the upper lobes. Patchy infiltr ate in the right lower lobe. Minimal infiltrate in the left lower lobe. There is motion near the antonia ng bases. There may also be right middle lobe infiltrate. An area of consolidation is seen at the p osterior right lung base. Pleura: No effusion or pneumothorax. Heart: The heart is not dilated. No coronary artery calcifications are seen. Aorta: Thoracic aorta non-dilated. Upper abdomen: Unremarkable. Bones: Mild degenerative disc changes and mild scoliosis. Tubes, Catheters, and Lines: IMPRESSION: No evidence of pulmonary embolism. Bilateral infiltrates, greatest at the right lower lobe. Underlying emphysematous changes and apical scarring. RADIATION DOSE DELIVERED: 168.19mGy.cm Total DLP DATA REPOSITORY: All CT scans at this facility are submitted to the National Radiology Data Registry (NRDR) Dose Index Registry (DIR) with the [employer] (ACR). RADIATION OPTIMIZATION: All CT scans at this facility use at least one of these dose optimization te chniques: automated exposure control; mA and/or kV adjustment per patient size (includes targeted exa ms where dose is matched to clinical indication); or iterative reconstruction.
[2019-11-07 17:17] LABS: ALT 31 U/L (14-59); AST 16 U/L (15-37); Albumin 3.2 g/dL (3.4-5.0); Alkaline Phosphatase 79 U/L (46-116); Anion Gap 11.1 mmol/L (3-11); BUN 21 mg/dL (7-18); Bilirubin, Total 0.5 mg/dL (0.2-1.0); CO2 27.9 mmol/L (21.0-32.0); CREATININE 0.54 mg/dL (0.55-1.02); Calcium 9.5 mg/dL (8.5-10.1); Chloride 100 mmol/L (98-107); D-Dimer 665 ng/mlFEU (<500); Glucose 100 mg/dL (74-106); Magnesium 2.3 mg/dL (1.8-2.4); Potassium 3.9 mmol/L (3.5-5.1); Sodium 139 mmol/L (136-145); Total Protein 7.5 g/dL (6.4-8.2)
[2019-11-07 17:19] LABS: Troponin I < 0.05 ng/mL (<0.06)
[2019-11-07] MEDS: Ketorolac 30 MG/ML VIAL IVP (17:44)
--- NOTE | 2019-11-07 17:47 | DI.VRAD_ITS ---
PROCEDURE INFORMATION: Exam: XR Chest, 1 View Exam date and time: 11/07/2019 5:20 PM Age: 54 years old Clinical indication: Shortness of breath; Patient HX: SOB, h/o copd TECHNIQUE: Imaging protocol: XR of the chest Views: 1 view. COMPARISON: CT CHEST LUNG CANCER SCREEN 04/04/2019 2:36 PM FINDINGS: Lungs: Hyperexpanded lungs compatible with chronic obstructive pulmonary disease. There is a new ill-defined right basilar opacity. Likely costochondral calcifications both lung bases. Pleural space: No pneumothorax or sizable effusion. Heart/Mediastinum: Stable cardiomediastinal silhouette. Bones/joints: No acute displaced fractures. IMPRESSION: 1. New ill-defined right basilar opacity would be concerning for pneumonia in the appropriate clinical setting. 2. Hyperexpanded lungs compatible with chronic obstructive pulmonary disease. Dictated and Authenticated by: Henry Van MD. Ordering:BOZENA Carrasco MD
[2019-11-07] MEDS: Omnipaque 350 MG/ML 100 ML BTL IJ (18:12)
[2019-11-07] MEDS: Normal Saline - Diluent 50 ML VIAL IV (18:13)
--- NOTE | 2019-11-07 18:43 | DI.VRAD_ITS ---
PROCEDURE INFORMATION: Exam: CT Angiography Chest With Contrast Exam date and time: 11/07/2019 5:21 PM Age: 54 years old Clinical indication: Shortness of breath; Patient HX: SOB, elevated d dimer TECHNIQUE: Imaging protocol: Computed tomographic angiography of the chest with intravenous contrast. 3D rendering (Not supervised by radiologist): MIP and/or 3D reconstructed images were created by the technologist. COMPARISON: CT CHEST LUNG CANCER SCREEN 04/04/2019 2:36 PM FINDINGS: Pulmonary arteries: Normal caliber main pulmonary artery. No evidence of pulmonary embolus. Aorta: Normal caliber aorta. Thyroid: Unremarkable visualized thyroid. Lungs: Centrilobular emphysematous changes both lungs. There are spiculated appearing lesions at the right lung apex measuring up to 9 mm. Please see image 6 series 4. There are multifocal ground-glass and nodular opacities with right lung predominance. Early consolidation is suspected within the right lower lobe. Pleural space: No pneumothorax. No sizeable pleural effusion. Heart: Heart is normal size. Lymph nodes: No suspicious lymphadenopathy. Adrenals: There is thickening of the left adrenal gland without definite underlying nodule or mass. Bones/joints: Scattered bony degenerative changes. No acute fractures or dislocations. Soft tissues: Unremarkable. IMPRESSION: 1. No evidence of pulmonary embolus. 2. Multifocal bilateral ground-glass and nodular like opacities with right lung predominance suspicious for a multifocal infectious process. Early consolidative changes are suspected within the right lower lobe. Short-term follow-up following any prescribed treatment or therapy is recommended to document resolution. 3. There are spiculated lesions at the right lung apex which could represent fibrotic change. Attention on follow-up imaging. Dictated and Authenticated by: Henry Van MD. Ordering:BOZENA Carrasco MD
[2019-11-07] MEDS: DOXYCYCLINE 100 MG in Normal Saline 100 ML IVPB (19:40)
[2019-11-07] MEDS: cefTRIAXone 1 GM/50 ML BAG IVPB (19:40)
--- NOTE | 2019-11-07 20:06 | W.PM.HP.N ---
Date of service: 11/07/19 Time of Service: 20:06 Assessment and Plan Assessment and plan (1) Pneumonia: Status: Acute Assessment and plan: Pneumonia, with COPD exacerbation. CT findings raise some concern for Covid. Will continue empiric antibiotics along with steroids and updrafts. Await Covid swab. Reviewed ADs, requests Full Code. History of Present Illness History of Present Illness Chief Complaint: SOB and cough Narrative: 54 female with COPD, continuing to smoke up until last week, on home O2 2L. Here with 3 days of productive cough and SOB. No CP. In ER findings of note for initial sat 86%, WBC of 18K and CT shpwing multifocal pneumonitis with ground glass opacities. Patient given Rocephin and Doxy, steroids and updrafts, and admitted for further management. Patint denies travel or exposure to any known Covid cases, but does allow that she is not always compliant with social distancing and mask us when out. Review of Systems All systems reviewed & are unremarkable except as noted in HPI and below PFSH Medical History Abnormal mammography Acute respiratory failure with hypoxia Back pain Carpal tunnel syndrome R Carpal tunnel syndrome of right wrist Chronic obstructive lung disease, type A continues to smoke Community acquired pneumonia COPD (chronic obstructive pulmonary disease) Depression Discharge planning issues DVT prophylaxis Dysfunctional uterine bleeding Dyspepsia Epigastric pain Gastric motor function disorder Hiatal hernia with GERD (04/27/17) Hypoxemia Influenza A Loose stools Low back pain SAcraliliac pain. MRI negative for lumbar pathology; T11,T12 left disc herniation. Has been to spine clinic; does get comfort from chiropractic Mammogram abnormal cat 3; did not return for F/U Pressure sore on buttocks Sepsis Smoker quit in 2003; restarted; down to 3/day 11/08/18 - has not smoked for 5 days while ill with URI Tinnitus Surgical History Colonoscopy - MAC (04/27/17) EGD - MAC (04/27/17) foot surgery (07/11/11) History of bilateral ligation of fallopian tubes History of bilateral tubal ligation Ligation of fallopian tube Open Carpal Tunnel release (02/15/16) right S/P carpal tunnel release right S/P foot surgery 07/11/11 Status post carpal tunnel release Status post foot surgery Family History Mother , age 73 Diabetes Heart disease Hyperlipidemia Sepsis Asthma Father , age 58 Lymph node cancer Sister Lymph node cancer Sister , age 56 Chronic obstructive lung disease Asthma Brother No problems noted. Brother No problems noted. Brother No problems noted. Maternal Grandfather Stroke Paternal Grandfather Pulmonary tuberculosis Maternal Grandmother Heart disease Emphysema lung Asthma Paternal Grandmother Cancer Spider Son No problems noted. Daughter Substance abuse Depression Cervical cancer Social History Smoking/Tobacco Use Status: Former Tobacco Use Tobacco: How many years used: 30 Second Hand Exposure: Yes Alcohol Intake: current Alcohol Intake frequency: 0-2 drinks per day Alcohol type: beer Drug use: Never Substance use type: does not use Caregiver/Support person: No Household members: spouse and other Details: grandchildren Housing: house Communication Needs: None current occupation: [employer] Pets and animals: Yes Pets and animals: cat(s) and dog(s) Sexually active: Yes Do you think of yourself as: straight/heterosexual Current gender identity: male What is your relationship status?: How often do you talk on the phone with friends or family?: three or more times per week How often do you get together with friends or relatives?: three or more times per week How often do you attend rastafarian or oriental orthodox services?: decline to answer Do you belong to any clubs or organized social groups?: no Panel score (0-1 are the most socially isolated patients): 2 What type of physical activity do you participate in: decline to answer Duration: decline to answer Frequency: decline to answer Alley/Holiness: No preference Special alley needs: No Seatbelt use: always Helmet use: Yes Helmet use: always Drive intox or ride w/intox delivery motorcycle driver: No Do you feel safe at home: Yes Meds Home Medications and Allergies Home Medications Medication Instructions Recorded Confirmed Type Aeroeclipse Reusable BAN #1 ea 04/12/13 05/17/19 History miconazole nitrate [Earline 1 applic TP BID PRN 12/27/18 11/07/19 History Antifungal] nystatin 1 applic TP BID PRN 12/27/18 11/07/19 History albuterol sulfate 90 mcg/actuation 2 puff INHALATION Q2H PRN PRN #8.5 03/10/19 11/07/19 Rx aerosol inhaler gm melatonin 5 mg tablet 5 mg PO HS PRN 04/11/19 11/07/19 History ipratropium 0.5 mg-albuterol 3 mg 3 ml UPD Q4H PRN PRN #180 ml 07/13/19 11/07/19 Rx (2.5 mg base)/3 mL nebulization soln budesonide-formoterol HFA 80 2 puff IH BID 07/26/19 11/07/19 History mcg-4.5 mcg/actuation aerosol inhaler mirtazapine 15 mg tablet 15 mg PO QHS #90 tab 07/26/19 11/07/19 Rx umeclidinium 62.5 mcg-vilanterol 1 inh IH DAILY 07/26/19 11/07/19 History 25 mcg/actuation powdr for inhalation Allergies Allergy/AdvReac Type Severity Reaction Status Date / Time venlafaxine Allergy Severe EYES Verified 11/07/19 15:34 SWELL; SHAKINESS benzonatate Allergy Intermediate FACIAL Verified 11/07/19 15:34 SWELLING meloxicam Allergy Intermediate ITCHING Verified 11/07/19 15:34 diclofenac Allergy Unknown Verified 11/07/19 15:34 misoprostol Allergy Unknown Verified 11/07/19 15:34 Exam Narrative Exam Narrative: 124/78, 96, 37.1, 16, 97% 2L. HEENT atraumatic; neck supple; lungs diminished with diffuse wheeze; heart distant/tachy/regular; abdomen soft and NT, extremities w/o edema; neuro Ox3, nonfocal Results Labs Result diagrams: 11/07/19 16:30 11/07/19 16:30 Labs: Laboratory Results - last 24 hr 11/07/19 11/07/19 11/07/19 16:30 16:30 16:30 WBC 18.51 H RBC 4.29 Hgb 13.3 Hct 40.1 MCV 93.5 MCH 31.0 MCHC 33.2 RDW 12.1 Plt Count 298 MPV 9.8 Immature Gran % 0.5 Neutrophils % 90.4 Lymphocytes % 3.2 Monocytes % 5.8 Eosinophils % 0.0 Basophils % 0.1 Nucleated RBC % 0 Absolute Neutrophils 16.73 H Absolute Lymphocytes 0.59 L Absolute Monocytes 1.07 H Absolute Eosinophils 0.00 Absolute Basophils 0.02 D-Dimer 665 H Sodium 139 Potassium 3.9 Chloride 100 Carbon Dioxide 27.9 Anion Gap 11.1 H BUN 21 H Creatinine 0.54 L Estimated GFR/1.73 m2 >= 60.00 Glucose 100 Calcium 9.5 Magnesium 2.3 Total Bilirubin 0.5 AST 16 ALT 31 Alkaline Phosphatase 79 Troponin I < 0.05 Total Protein 7.5 Albumin 3.2 L Last Vital Signs Temp 37.1 C 11/07/19 19:43 Pulse 96 H 11/07/19 19:43 Resp 16 11/07/19 19:43 BP 124/78 11/07/19 19:43 Pulse Ox 97 11/07/19 19:43 COVID-19 Screening Have you,or household,traveled outside [place] in last 14 days?: No Had IN PERSON contact w/suspected or confirmed C-19 person: No
[2019-11-08] VITALS (23 sets, daily range): BP systolic 111–133; BP diastolic 61–82; PULSE 72–94; RESP 2–28; TEMP 36.5–37.1; O2SAT 86–99
[2019-11-08] MEDS: Mirtazapine 15 MG TAB PO ×2 (01:00→22:12)
[2019-11-08] MEDS: methylPREDNISolone SUCC 40 MG VIAL IVP ×3 (01:00→17:15)
[2019-11-08] MEDS: Normal Saline Flush 10 ML SYR IVP ×4 (05:08→17:18)
[2019-11-08] MEDS: Albuterol/Ipratropium 3 ML UPD VIAL UPD ×3 (05:15→17:29)
[2019-11-08] MEDS: DOXYCYCLINE 100 MG in Normal Saline 100 ML IVPB ×2 (08:16→19:31)
--- NOTE | 2019-11-08 08:17 | W.PM.PROGNOT ---
Date of Service Date of service: 11/08/19 Time of Service: 12:12 Assessment and Plan Assessment and plan (1) Sepsis: Status: Acute Assessment and plan: Due to multifocal pneumonia, present on admission. Seems to be responding to ceftriaxone, doxycycline. Will obtain blood and sputum cultures. Continue current abx. (2) Pneumonia: Status: Acute Assessment and plan: As above (3) Acute exacerbation of chronic obstructive pulmonary disease (COPD): Status: Acute Assessment and plan: Due to above. Continue current abx, scheduled and prn nebs, scheduled steroids. I added symbicort, mucinex, acapella. (4) Hypoxia: Status: Acute Assessment and plan: Due to above. Continue treatment of COPD exacerbation and wean as tolerated. (5) DVT prophylaxis: Status: Acute Assessment and plan: lovenox SC (6) Discharge planning issues: Status: Acute Assessment and plan: Full code Continues to require hospitalization Subjective Subjective Interval history since last seen: Feels less achy today and breathing is starting to get better. Cough is productive of yellow sputum. Denies dizziness, chest pain, nausea. Afebrile. Sinus tach. 85% on RA, 95% on 2L. Tachypnea/wheezing noted. 4 loose stools yesterday. Exam Narrative Exam Narrative: General: Very pleasant middle-aged female, A&Ox3, does not appear to be in respiratory distress when I saw her HEENT: EOMI, MMM Heart: RRR, no m/r/g Lungs: tight wheezing B, L>R Abdomen: soft, nontender, nondistended Extremities: no e/c/c BLEs Objective Last Vital Signs Temp 36.6 C 11/07/19 21:40 Pulse 72 11/08/19 04:01 Resp 25 H 11/08/19 04:01 BP 111/61 11/08/19 04:01 Pulse Ox 86 L 11/08/19 05:30 Laboratory Results - last 24 hr 11/07/19 11/07/19 11/07/19 16:30 16:30 16:30 WBC 18.51 H RBC 4.29 Hgb 13.3 Hct 40.1 MCV 93.5 MCH 31.0 MCHC 33.2 RDW 12.1 Plt Count 298 MPV 9.8 Immature Gran % 0.5 Neutrophils % 90.4 Lymphocytes % 3.2 Monocytes % 5.8 Eosinophils % 0.0 Basophils % 0.1 Nucleated RBC % 0 Absolute Neutrophils 16.73 H Absolute Lymphocytes 0.59 L Absolute Monocytes 1.07 H Absolute Eosinophils 0.00 Absolute Basophils 0.02 D-Dimer 665 H Sodium 139 Potassium 3.9 Chloride 100 Carbon Dioxide 27.9 Anion Gap 11.1 H BUN 21 H Creatinine 0.54 L Estimated GFR/1.73 m2 >= 60.00 Glucose 100 Calcium 9.5 Magnesium 2.3 Total Bilirubin 0.5 AST 16 ALT 31 Alkaline Phosphatase 79 Troponin I < 0.05 Total Protein 7.5 Albumin 3.2 L
[2019-11-08 08:39] LABS: COVID-19 RT-PCR UVMMC Result Negative (Negative)
--- NOTE | 2019-11-08 09:01 | PDOC.CMIN ---
- If Service Date Differs Date of service: 11/08/19 Time of Service: 16:26 Care Management Initial Assess REASON FOR HOSPITALIZATION:: Pneumonia, COPD PAST MEDICAL HISTORY/PAST SURGICAL HISTORY:: Back pain, carpal tunnel syndrome, chronic obstructive lung disease type A, COPD, depression, dyspepsia, epigastric pain, gastric motor function disorder, hiatal hernia with GERD, loose stools, low back pain, mammogram abnormal, smoker, tinnitus, colonoscopy, EGD-MAC, foot surgery, bilateral tubal ligation, ligation of fallopian tube, open carpal tunnel release (right), foot surgery. PREVIOUS FUNCTIONAL STATUS/SOCIAL/FAMILY SUPPORTS:: Juhi lives with her , Sd in [facility]. She has two adult children, and nine grandchildren. She is independent with ADLs in the community. 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 She is on State disability. CURRENT FUNCTIONAL STATUS:: Juhi was sitting up in her chair, oxygen on. She was forthcoming with information and pleasant in interaction. ADVANCE DIRECTIVES:: On file; Sd as agent. Has patient been provided with info about the portal/API?: Yes Did the patient sign up for the portal?: No CODE STATUS:: Full Code INSURANCE COVERAGE / FINANCIAL ISSUES:: Medicare. State Disability CURRENT HOME/COMMUNITY SERVICES/EQUIPMENT:: No current services or equipment, does have disability support through the [facility]. PRIMARY CARE PHYSICIAN:: Gay Cooper DO POTENTIAL DISCHARGE NEEDS:: Discuss attachment to services for smoking cessation, pain management. Follow up appointment with PCP. PATIENT/FAMILY EDUCATION NEEDS:: Review of discharge instructions, discuss Ask Me Three. ANTICIPATED BARRIERS TO DISCHARGE:: None identified. TRANSPORTATION:: Via private vehicle with family. PLAN:: Juhi continues to be closely monitored and treated for Pneumonia and COPD. CM continues to follow. Anticipate Juhi will return home, follow up with her PCP and additional services if agreeable. She will transport via private vehicle with family.
[2019-11-08 09:11] LABS: HCT 40.6 % (36.0-46.0); MCH 30.4 pg (27.0-33.0); MCV 95.1 fL (80-95); MPV 9.8 fL (8.0-11.0); Platelet Count 314 10^3/uL (130-400); RBC 4.27 10^6/uL (3.93-5.22); RDW 12.2 % (11.7-14.6); RDW-SD 42.7 fL; WBC 13.22 10^3/uL (4.4-10.8)
--- NOTE | 2019-11-08 11:13 | W.NUTCONSULT ---
Date of service: 11/08/19 Time of Service: 11:14 Nutritional Consult ASSESSMENT: Pt admitted to ICU with COPD with PNA. Uses home O2. Met with Juhi today, she reports losing 10 lbs in last 3 months(-11%) due to increased difficulty breathing while eating and reports bloating due to her gastric motility disorder that leaves her feeling bloated and with no appetite. Following Regular meal plan and completing > 75% of meals. Estimated Needs: [id number] kcal, 55-60 g protein. Recently started on remeron for depression, which also acts as an appetite stimulant. Currently meeting 100% nutrient and fluid needs. Juhi presents with sever malnutrition in context of chronic illness (COPD) due to insufficient nutrient intake. Albumin 3.2 L Discussed with Juhi ways to increase po intake to regain baseline weight of 100 lbs. She is willing to drink ensure BID and focus on nutrient dense foods. Spoke with hospice care sales consultant to provide ensure when discharges if qualifies. Plan: continue current meal plan, ensure BID, will continue to support and encourage Time Spent in Nutritional Counseling and Treatment: 15 min spent face to face
[2019-11-08] MEDS: Enoxaparin 40 MG/0.4 ML SYR SC (11:43)
[2019-11-08] MEDS: Pantoprazole 40 MG VIAL IVP (11:43)
[2019-11-08] MEDS: Budesonide/Formoterol 160/4.5 6 GM 60 PUFF INH IH ×2 (11:54→19:31)
[2019-11-08] MEDS: guaiFENesin 600 MG TABCR PO ×2 (12:25→19:31)
[2019-11-08 13:56] LABS: Procalcitonin 0.2 ng/mL
--- NOTE | 2019-11-08 15:18 | PHA.REVIEW ---
Pharmacy Admission Review - Admission Clinical Review (Last Reviewed 11/07/19 @ 22:55 by ANGELICA Alex) Discharge planning issues (Acute) DVT prophylaxis (Acute) Sepsis (Acute) Hypoxia (Acute) Acute exacerbation of chronic obstructive pulmonary disease (COPD) (Acute) Pneumonia (Acute) Tongue coating (Acute) COPD with acute exacerbation (Acute) venlafaxine Allergy (Severe, Verified 11/07/19 15:34) EYES SWELL; SHAKINESS benzonatate Allergy (Intermediate, Verified 11/07/19 15:34) FACIAL SWELLING meloxicam Allergy (Intermediate, Verified 11/07/19 15:34) ITCHING diclofenac Allergy (Unknown, Verified 11/07/19 15:34) misoprostol Allergy (Unknown, Verified 11/07/19 15:34) Height 4 ft 11 in Weight 41.2 kg - Renal Dosing Renal Dosing: BUN 21 mg/dL (7-18) H 11/07/19 16:30 Creatinine 0.54 mg/dL (0.55-1.02) L 11/07/19 16:30 Medications needing adjustments: Reviewed (Crcl ~51.07 mL/min current meds okay.) - Anticoagulation Anticoagulation: Hgb 13.0 g/dL (11.2-15.7) 11/08/19 08:52 Hct 40.6 % (36.0-46.0) 11/08/19 08:52 Plt Count 314 10^3/uL (130-400) 11/08/19 08:52 Creatinine 0.54 mg/dL (0.55-1.02) L 11/07/19 16:30 DVT Prohphylaxis: Reviewed Medications: Enoxaparin Therapeutic Anticoagulation: N/A - Opiate Usage Evaluate Pain Scale/Pains Meds: N/A - Relevant Labs Sodium 139 mmol/L (136-145) 11/07/19 16:30 Potassium 3.9 mmol/L (3.5-5.1) 11/07/19 16:30 Chloride 100 mmol/L (98-107) 11/07/19 16:30 Magnesium 2.3 mg/dL (1.8-2.4) 11/07/19 16:30 Electrolytes, C-Reactive P, ESR: Reviewed - DM Control DM Control: Glucose 100 mg/dL (74-106) 11/07/19 16:30 Insulin Dosing: N/A - Heart Failure/OH Heart Failure/OH: Troponin I < 0.05 ng/mL (<0.06) 11/07/19 16:30 EF%, PATRICIA's, B-Blockers, Diuretics: N/A - BP Control BP Control: Blood Pressure 130/82 Blood Pressure 124/76 Blood Pressure 111/61 If elevated: N/A - Qtc Review If Elevated: N/A (QTc 438) - IV to PO Switch IV Medications: Reviewed - Home Meds Home Med List reviewed: Reviewed (Multiple long acting bronchodilators (formoterol and vilanterol), recommended to avoid concurrent use. Multiple anticholinergics (ipratropium, umeclidinium), recommended to avoid concurrent use of anticholinergics.) Relevent Home Meds Not ordered & why?: umeclidinium/vilanterol- unknown when last taken, pt is currently using budesonide/formoterol (most recent rx picked up of the two per external med history) - Current meds Current Medication Order Review: Intervened (Changed ceftriaxone from admix to premix, adjusted timing of ipratropium/albuterol for respiratory, and discontinued DI meds as they were already given.) - Comments Comments/Follow Ups: Watch VS, SCr, labs and for med changes. Antibiotic Activity - Pharmacy Antibiotic Review Pharmacy Antibiotic Activity: Reviewed, no change (ceftriaxone and doxycycline continue. Blood and sputum cultures pending (these were taken after pt had already started abx).)
--- NOTE | 2019-11-08 17:46 | RESPIRATORY ---
Spoke with patient today concerning the use of home oxygen. RT was informed that she was recently prescribed home oxygen within the last month. Her baseline is a constant flow of 2L with activity versus a pulse dose of 1 on her concentrator. Patient stated since getting sick, she has been using the oxygen more. DME of the concentrator and oxygen tanks are both [facility].
[2019-11-08] MEDS: cefTRIAXone 1 GM/50 ML BAG IVPB (18:38)
[2019-11-09] VITALS (8 sets, daily range): BP systolic 116–128; BP diastolic 69–73; PULSE 79–81; RESP 1–21; TEMP 36.8–37.5; O2SAT 95–98
[2019-11-09] MEDS: methylPREDNISolone SUCC 40 MG VIAL IVP ×3 (00:14→21:06)
[2019-11-09] MEDS: Melatonin 3 MG TAB 6 MG PO (00:15)
[2019-11-09] MEDS: Albuterol/Ipratropium 3 ML UPD VIAL UPD ×4 (00:16→17:39)
[2019-11-09 07:34] LABS: Abs Immature Grans 0.09 10^3/uL (0.0-0.06); Absolute Monocyte Count 0.57 10^3/uL (0.1-0.8); Absolute Neutrophil Count 10.78 10^3/uL (1.2-6.7); HCT 37.5 % (36.0-46.0); Immature Grans % 0.7; Lymphocytes % 6.2; MCH 30.7 pg (27.0-33.0); MCV 95.9 fL (80-95); MPV 9.9 fL (8.0-11.0); Monocytes % 4.7; Neutrophils % 88.4; Nucleated RBC 0 %; Platelet Count 320 10^3/uL (130-400); RBC 3.91 10^6/uL (3.93-5.22); RDW 12.3 % (11.7-14.6); RDW-SD 43.3 fL; WBC 12.19 10^3/uL (4.4-10.8)
[2019-11-09 07:39] LABS: Anion Gap 4.1 mmol/L (3-11); BUN 20 mg/dL (7-18); CO2 31.9 mmol/L (21.0-32.0); CREATININE 0.54 mg/dL (0.55-1.02); Calcium 9.3 mg/dL (8.5-10.1); Chloride 105 mmol/L (98-107); Glucose 163 mg/dL (74-106); Magnesium 2.4 mg/dL (1.8-2.4); Potassium 4.2 mmol/L (3.5-5.1); Sodium 141 mmol/L (136-145)
[2019-11-09 07:43] LABS: Absolute Lymphocyte Count 0.76 10^3/uL (1.2-3.4)
[2019-11-09] MEDS: Budesonide/Formoterol 160/4.5 6 GM 60 PUFF INH IH ×2 (07:43→21:06)
[2019-11-09] MEDS: DOXYCYCLINE 100 MG in Normal Saline 100 ML IVPB ×2 (07:50→21:06)
[2019-11-09] MEDS: guaiFENesin 600 MG TABCR PO ×2 (07:50→21:09)
[2019-11-09] MEDS: Pantoprazole 40 MG VIAL IVP (11:02)
[2019-11-09] MEDS: Normal Saline Flush 10 ML SYR IVP ×2 (11:02→21:10)
[2019-11-09] MEDS: Enoxaparin 40 MG/0.4 ML SYR SC (11:02)
--- NOTE | 2019-11-09 14:55 | RESPIRATORY ---
Pt says she is feeling better and less SOB with ambulation. Pt walked to the hallway and required O2 turned up to 4L to maintain Sp02 >88. She says she was starting to feel SOB at @ 100 ft. but is improving since arrival.
--- NOTE | 2019-11-09 16:27 | CMPROGNOTE_ITS ---
- If Service Date Differs Date of service: 11/09/19 Time of Service: 16:27 Care Management Progress Note S/O: Juhi was lying in bed when CM met with her. She reported that she was feeling better today. She asked about the visitation policy, as she has named her daughter, Vanessa as her designated visitor, but was hoping to see her as well. CM went over the visitor policy, which Juhi understands. Juhi stated that per RT, she may need a new machine, but she was not sure what the machine was that they were referring to. CM will discuss this with RT. CM will continue to follow. A: Juhi is a 54 year old female admitted to [facility] on 11/07/19 with PNA, COPD. P: Juhi continues to be closely monitored and treated for Pneumonia and COPD. Anticipate Juhi will return home, follow up with her PCP and additional services if agreeable. She will transport via private vehicle with family. CM will continue to follow.
--- NOTE | 2019-11-09 16:51 | PGE_ITS ---
Date of Service Date of service: 11/09/19 Time of Service: 16:51 Assessment and Plan Assessment and plan (1) Sepsis: Status: Acute Assessment and plan: Due to multifocal pneumonia, present on admission. Improved on ceftriaxone, doxycycline. Blood cultures are negative. Sputum C&S with normal chelita. No change to antibiotic regimen today. (2) Pneumonia: Status: Acute Assessment and plan: As above (3) Acute exacerbation of chronic obstructive pulmonary disease (COPD): Status: Acute Assessment and plan: Due to above. Continue current abx, scheduled and prn nebs, decrease scheduled steroids. Continue symbicort, mucinex, acapella. (4) Hypoxia: Status: Acute Assessment and plan: Due to above. Continue treatment of COPD exacerbation and wean as tolerated. Exercise walk today demonstrated probably need for 4L with ambulation - will check again tomorrow. (5) DVT prophylaxis: Status: Acute Assessment and plan: lovenox SC (6) Discharge planning issues: Status: Acute Assessment and plan: Full code Continues to require hospitalization It is medically necessary and beneficial that Juhi receives NIV therapy in her home to treat her Chronic Respiratory Failure secondary to COPD. Juhi experiences shortness of breath, lethargy, frequent hospitalizations, and limitations in ADL?s resulting in an overall poor quality of life as her disease will inevitably progress. The NIV via the Trilogy device will allow Juhi to maintain a quality of life at her baseline while treating her underlying respiratory condition. A traditional Bi-Pap would not be effective in treating her current respiratory issues nor is MERYL an underlying cause of her current complex chronic respiratory issues. Trilogy NIV allows for two settings one to use in the daytime and one to use nocturnally. MPV via PC (mouth piece ventilation) this will allow the patient to use the device during wakefulness and sip and puff to alleviate SOB. AVAP- AE will assist her in meeting her demands for a tidal volume and minute ventilation by allowing for a longer expi ratory time and prevention of flow limitation and air trapping, decrease current work of breathing, decrease CO2 retention, increase oxygenation and most importantly improve the quality of her life. It is medically necessary that she use the Trilogy up to 24 hours daily (MPV/AVAPS- AE). The Trilogy operates on a battery to provide usage so she can use the therapy uninterrupted for appointments or if there was a power outages as a lapse in therapy could be to life threatening consequences. I?m aware that the patient would normally need a PFT or ABG however during this time frame of COVID it will not be ordered for safety reasons. Subjective Subjective Interval history since last seen: Ms Clark states that she is overall feeling much better, but she is coughing more today. She was only able to bring up sputum twice today. She has been using her acapella. She denies dizziness, chest pain, shortness of breath, nausea. When ambulating today, her O2 sat dropped to the 80's, and she required 4L to complete her walk. She is interested in getting set up with a Trilogy machine. Exam Narrative Exam Narrative: General: Very pleasant middle-aged female, A&Ox3, looks better HEENT: EOMI, MMM Heart: RRR, no m/r/g Lungs: quiet wheezing B, but much improved from yesterday Abdomen: soft, nontender, nondistended Extremities: no e/c/c BLEs Objective Last Vital Signs Temp 37.5 C 11/09/19 15:42 Pulse 79 11/09/19 15:42 Resp 17 11/09/19 15:42 BP 119/69 11/09/19 15:42 Pulse Ox 96 11/09/19 15:42 Laboratory Results - last 24 hr 11/09/19 11/09/19 06:30 06:30 WBC 12.19 H RBC 3.91 L Hgb 12.0 Hct 37.5 MCV 95.9 H MCH 30.7 MCHC 32.0 RDW 12.3 Plt Count 320 MPV 9.9 Immature Gran % 0.7 Neutrophils % 88.4 Lymphocytes % 6.2 Monocytes % 4.7 Eosinophils % 0.0 Basophils % 0.0 Nucleated RBC % 0 Absolute Neutrophils 10.78 H Absolute Lymphocytes 0.76 L Absolute Monocytes 0.57 Absolute Eosinophils 0.00 Absolute Basophils 0.00 Sodium 141 Potassium 4.2 Chloride 105 Carbon Dioxide 31.9 Anion Gap 4.1 BUN 20 H Creatinine 0.54 L Estimated GFR/1.73 m2 >= 60.00 Glucose 163 H Calcium 9.3 Magnesium 2.4
[2019-11-09] MEDS: cefTRIAXone 1 GM/50 ML BAG IVPB (17:59)
[2019-11-09] MEDS: Mirtazapine 15 MG TAB PO (21:09)
[2019-11-10] VITALS (10 sets, daily range): BP systolic 121–134; BP diastolic 75–76; PULSE 71–104; RESP 2–18; TEMP 36.4–37; O2SAT 86–99
[2019-11-10] MEDS: Albuterol/Ipratropium 3 ML UPD VIAL UPD ×4 (00:06→18:45)
[2019-11-10] MEDS: Melatonin 3 MG TAB 6 MG PO (00:06)
[2019-11-10] MEDS: Normal Saline Flush 10 ML SYR IVP ×2 (00:07→10:10)
[2019-11-10 06:58] LABS: Abs Immature Grans 0.08 10^3/uL (0.0-0.06); Absolute Lymphocyte Count 0.77 10^3/uL (1.2-3.4); Absolute Monocyte Count 0.49 10^3/uL (0.1-0.8); Absolute Neutrophil Count 8.26 10^3/uL (1.2-6.7); HCT 35.8 % (36.0-46.0); HGB 11.6 g/dL (11.2-15.7); Immature Grans % 0.8; MCH 31.1 pg (27.0-33.0); MCHC 32.4 % (32.0-36.0); MPV 9.7 fL (8.0-11.0); Monocytes % 5.1; Neutrophils % 86.1; Nucleated RBC 0 %; Platelet Count 326 10^3/uL (130-400); RBC 3.73 10^6/uL (3.93-5.22); RDW 12.4 % (11.7-14.6); RDW-SD 43.6 fL
[2019-11-10 07:03] LABS: Anion Gap 5.2 mmol/L (3-11); BUN 20 mg/dL (7-18); CO2 30.8 mmol/L (21.0-32.0); CREATININE 0.51 mg/dL (0.55-1.02); Calcium 8.9 mg/dL (8.5-10.1); Chloride 106 mmol/L (98-107); Glucose 142 mg/dL (74-106); Magnesium 2.2 mg/dL (1.8-2.4); Potassium 4.3 mmol/L (3.5-5.1); Sodium 142 mmol/L (136-145)
[2019-11-10] MEDS: methylPREDNISolone SUCC 40 MG VIAL IVP (07:40)
[2019-11-10] MEDS: guaiFENesin 600 MG TABCR PO (07:40)
[2019-11-10] MEDS: DOXYCYCLINE 100 MG in Normal Saline 100 ML IVPB (07:40)
[2019-11-10] MEDS: Budesonide/Formoterol 160/4.5 6 GM 60 PUFF INH IH (07:51)
[2019-11-10] MEDS: Pantoprazole 40 MG VIAL IVP (10:10)
[2019-11-10] MEDS: Enoxaparin 40 MG/0.4 ML SYR SC (10:10)
--- NOTE | 2019-11-10 14:39 | PDOC.CMPRO ---
- If Service Date Differs Date of service: 11/10/19 Time of Service: 14:39 Care Management Progress Note S/O: Juhi was sitting up in her bed when CM met with her. She stated that she was feeling ok today. She reported that she visited with her daughter yesterday, which she enjoyed. She is anxious to return home, but is willing to remain at [facility] to continue treatment for PNA, COPD. She stated that she is comfortable. CM will continue to follow. A: Juhi is a 54 year old female admitted to [facility] on 11/07/19 with PNA, COPD. P: Juhi continues to be closely monitored and treated for Pneumonia and COPD. Anticipate Juhi will return home, follow up with her PCP and additional services if agreeable. She will transport via private vehicle with family. CM will continue to follow.
--- NOTE | 2019-11-10 16:08 | CHAPLAIN ---
Juhi was resting in bed when I visited. She said she hopes to be discharged tomorrow. Her daughter has visited her, and Juhi appreciates that. I explained my role and offered support.
--- NOTE | 2019-11-10 16:26 | W.PM.DS.N ---
Date of service: 11/10/19 Time of Service: 16:26 DS: Diagnosis Discharge Diagnosis (1) Sepsis: Status: Acute (2) Pneumonia: Status: Acute (3) Acute exacerbation of chronic obstructive pulmonary disease (COPD): Status: Acute (4) Chronic respiratory failure with hypoxia: Status: Acute (5) COVID-19 ruled out by laboratory testing: Status: Acute Discharge Plan Disposition Patient Disposition: HOME Condition: Good Discharge Details Reason For Visit: PNEUMONIA,COPD Admit Date/Time: 11/07/19 20:15 Admit Provider: Patric Dennis Attending Provider: Patric Dennis Primary Care Provider: Gay Cooper [facility] Course Hospital Course: Ms Clark is a 54 year old female with PMHx of oxygen-dependent COPD, chronic hypoxic respiratory failure, normally on 1.5-2 L of O2, as well as GERD and depression, who was admitted to [facility] hospitalist service on 11/07/2019 with Acute exacerbation of COPD due to pneumonia causing sepsis. She was initiated on doxycycline and ceftriaxone as well as systemic steroids, scheduled and prn nebs. She was continued on symbicort. Her blood and sputum cultures are negative to date. COVID-19 was ruled out by PCR. With this therapy she improved rapidly and is ready to go home today to complete her steroid taper and antibiotics. Her ambulatory pulse ox revealed that she requires 2 L of O2 with ambulation to saturate >88% (desaturates down 86% on room air). She is medically stable for discharge with 2 more days of cefuroxime and doxycycline. She has a nebulizer at home with nebulizer treatments which she should continue. Care for patient as well as completion of her discharge summary on day of discharge took 35 minutes. Home Meds and New Rx's Prescriptions: New guaifenesin [Mucinex] 600 mg Tablet Extended Release 12hr 600 mg PO BID PRN PRN (Reason: cough) Qty: 30 RF: 0 prednisone 20 mg Tablet See Rx Instructions .ROUTE .COMPLEX Qty: 10 RF: 0 omeprazole 40 mg capsule,delayed release(DR/EC) 40 mg PO DAILY Qty: 30 RF: 0 doxycycline hyclate 100 mg capsule 100 mg PO BID Qty: 4 RF: 0 cefuroxime axetil 250 mg tablet 250 mg PO BID Qty: 4 RF: 0 Continued budesonide-formoterol [Symbicort] 80-4.5 mcg/actuation HFA aerosol inhaler 2 puff IH BID RF: 0 Anoro Ellipta 62.5-25 mcg/actuation blister with device 1 inh IH DAILY RF: 0 mirtazapine 15 mg tablet 15 mg PO QHS Qty: 90 RF: 5 (DME) Aeroeclipse Reusable BAN 1 EACH misc 1 ea Miscellaneous TID Qty: 1 RF: 0 albuterol sulfate [ProAir HFA] 90 mcg/actuation HFA aerosol inhaler 2 puff Inhalation Q2H PRN PRN (Reason: shortness of breath or wheezing) Qty: 8.5 RF: 3 ipratropium-albuterol 0.5 mg-3 mg(2.5 mg base)/3 mL solution for nebulization 3 ml UPD Q4H PRN PRN (Reason: shortness of breath or wheezing) Qty: 180 RF: 6 Discharge Instructions Instructions: Cefuroxime (By mouth), Doxycycline (By mouth), Prednisone (By mouth), Omeprazole (By mouth), COPD (Chronic Obstructive Pulmonary Disease) (DC), Bacterial Pneumonia (DC) Additional Instructions: Finish your antibiotics and prednisone taper as prescribed. Return to the hospital with any fever, bleeding, chest pain, or shortness of breath. Referrals: Gay Cooper MD, [place] [Primary Care Provider] - Activity:: Activity as Tolerated Equipment/Supplies:: No Equipment Needed Diet:: As Tolerated Discharge Orders Discharge Orders: Discharge Order (Routine); Ordered 11/10/19 Ordered By: Varsha Ang DS: Summary Status at Discharge Functional status at discharge: independent ambulation Overall status at discharge: patient is back to baseline Mental Status: mental status grossly normal Speech and Movement: speech and movement normal Mood: congruent mood Affect: normal affect Exam Narrative Exam Narrative: General: Very pleasant middle-aged female, A&Ox3, looks better, sitting in a chair HEENT: EOMI, MMM Heart: RRR, no m/r/g Lungs: quiet rhonchi at B bases, improving Abdomen: soft, nontender, nondistended Extremities: no e/c/c BLEs Psych Mental Status: mental status grossly normal Speech and Movement: speech and movement normal Mood: congruent mood Affect: normal affect DS: Data Vitals/I&O Vitals and I&O: Vital Signs Temperature 37.0 C 11/10/19 15:50 Temperature Source Tympanic 11/10/19 15:50 Pulse 71 11/10/19 15:50 Pulse Rhythm Regular 11/10/19 07:35 Pulse 85 11/08/19 21:00 Respiratory Rate 18 11/10/19 15:50 Respiratory Effort Non-Labored 11/10/19 07:35 Respiratory Depth Normal 11/10/19 07:35 Respiratory Pattern Normal 11/10/19 07:35 Blood Pressure 121/75 11/10/19 15:50 Blood Pressure Mean 74 11/08/19 20:01 Blood Pressure Position Sitting 11/07/19 15:30 Pulse Oximetry 96 11/10/19 15:50 Oxygen Delivery Method Room Air 11/10/19 15:50 Oxygen Flow Rate 0 11/10/19 15:50 Pain Level 0 11/10/19 15:50 Comment 11/07/19 19:43 Intake & Output 11/09/19 11/10/19 11/10/19 23:59 11:59 23:59 Intake Total 640 / 1520 200 / 440 240 / 440 Output Total 250 / 800 550 / 550 Balance 390 / 720 -350 / -110 240 / -110 Weight 42.9 kg Intake: IV 110 / 210 Oral 530 / 1310 200 / 440 240 / 440 Output: Urine 250 / 800 550 / 550 Other: Urine Color Yellow Urine Appearance Clear Clear Urine Odor Normal Voiding Methods Toilet Toilet Data Completed and Pending Completed studies during hospitalization [Text1]: CXR 11/07/2019: Bilateral lower lobe diffuse interstitial infiltrates which could represent pneumonitis versus pulmonary edema. CTA chest 11/07/2019: No evidence of pulmonary embolism. Bilateral infiltrates, greatest at the right lower lobe. Underlying emphysematous changes and apical scarring. Labs on day of discharge: Labs from last 24 hours 11/10/19 11/10/19 06:20 06:20 WBC 9.60 RBC 3.73 L Hgb 11.6 Hct 35.8 L MCV 96.0 H MCH 31.1 MCHC 32.4 RDW 12.4 Plt Count 326 MPV 9.7 Immature Gran % 0.8 Neutrophils % 86.1 Lymphocytes % 8.0 Monocytes % 5.1 Eosinophils % 0.0 Basophils % 0.0 Nucleated RBC % 0 Absolute Neutrophils 8.26 H Absolute Lymphocytes 0.77 L Absolute Monocytes 0.49 Absolute Eosinophils 0.00 Absolute Basophils 0.00 Sodium 142 Potassium 4.3 Chloride 106 Carbon Dioxide 30.8 Anion Gap 5.2 BUN 20 H Creatinine 0.51 L Estimated GFR/1.73 m2 >= 60.00 Glucose 142 H Calcium 8.9 Magnesium 2.2 Preliminary micro results at discharge 11/08/19 12:56 Blood Culture - Preliminary Blood NO GROWTH 48 HOURS 11/08/19 12:45 Blood Culture - Preliminary Blood NO GROWTH 48 HOURS 11/08/19 12:20 Sputum Culture - Preliminary Sputum - Expectorated Normal Stephanie [facility] Medical History Abnormal mammography Acute respiratory failure with hypoxia Back pain Carpal tunnel syndrome R Carpal tunnel syndrome of right wrist Chronic obstructive lung disease, type A continues to smoke Community acquired pneumonia COPD (chronic obstructive pulmonary disease) Depression Discharge planning issues DVT prophylaxis Dysfunctional uterine bleeding Dyspepsia Epigastric pain Gastric motor function disorder Hiatal hernia with GERD (04/27/17) Hypoxemia Influenza A Loose stools Low back pain SAcraliliac pain. MRI negative for lumbar pathology; T11,T12 left disc herniation. Has been to spine clinic; does get comfort from chiropractic Mammogram abnormal cat 3; did not return for F/U Pressure sore on buttocks Sepsis Smoker quit in 2003; restarted; down to 3/day 11/08/18 - has not smoked for 5 days while ill with URI Tinnitus Surgical History Colonoscopy - MAC (04/27/17) EGD - MAC (04/27/17) foot surgery (07/11/11) History of bilateral ligation of fallopian tubes History of bilateral tubal ligation Ligation of fallopian tube Open Carpal Tunnel release (02/15/16) right S/P carpal tunnel release right S/P foot surgery 07/11/11 Status post carpal tunnel release Status post foot surgery Family History Mother , age 73 Diabetes Heart disease Hyperlipidemia Sepsis Asthma Father , age 58 Lymph node cancer Sister Lymph node cancer Sister , age 56 Chronic obstructive lung disease Asthma Brother No problems noted. Brother No problems noted. Brother No problems noted. Maternal Grandfather Stroke Paternal Grandfather Pulmonary tuberculosis Maternal Grandmother Heart disease Emphysema lung Asthma Paternal Grandmother Cancer Spider Son No problems noted. Daughter Substance abuse Depression Cervical cancer Social History Smoking/Tobacco Use Status: Former Tobacco Use Tobacco: How many years used: 30 Second Hand Exposure: Yes Alcohol Intake: current Alcohol Intake frequency: 0-2 drinks per day Alcohol type: beer Drug use: Never Substance use type: does not use Caregiver/Support person: No Household members: spouse and other Details: grandchildren Housing: house Communication Needs: None current occupation: [employer] Pets and animals: Yes Pets and animals: cat(s) and dog(s) Sexually active: Yes Do you think of yourself as: straight/heterosexual Current gender identity: male What is your relationship status?: How often do you talk on the phone with friends or family?: three or more times per week How often do you get together with friends or relatives?: three or more times per week How often do you attend adventism or rastafarian services?: decline to answer Do you belong to any clubs or organized social groups?: no Panel score (0-1 are the most socially isolated patients): 2 What type of physical activity do you participate in: decline to answer Duration: decline to answer Frequency: decline to answer Alley/Moravian: No preference Special alley needs: No Seatbelt use: always Helmet use: Yes Helmet use: always 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
== END 2019-11-10 19:29 | disposition home or self-care (01) | DRG 871 ==
LOC: ER 20:19 → ICU 21:16 → MS 11-08 21:22
PROVIDERS: Internal Medicine; Admitting Provider General Practice; Emergency Provider Physician Assistant; PCP Family Medicine; Visit Provider General Practice
DX: A41.9 Sepsis, unspecified organism (principal); J18.9 Pneumonia, unspecified organism; J44.0 Chronic obstructive pulmonary disease with (acute) lower respiratory infection; J44.1 Chronic obstructive pulmonary disease with (acute) exacerbation; J96.11 Chronic respiratory failure with hypoxia; Z11.59 Encounter for screening for other viral diseases; K21.9 Gastro-esophageal reflux disease without esophagitis; F32.9 Major depressive disorder, single episode, unspecified; F17.210 Nicotine dependence, cigarettes, uncomplicated; Z99.81 Dependence on supplemental oxygen
CPT/HCPCS: 36410; 36415; 71275; 80048; 80053; 84145; 85027; 87040; 90686; 93005; 94618; 94640; 96361; 96365; 96368; 96375; 99222; 99232; 99239; 99285; J1650; U0003; 71045; 83735; 84484; 85025; 85379; 87070; 87205; 93010; 94667; J0696; J1885; J2930; J3490; J7620

== ENCOUNTER 2020-04-06 02:46 | Outpatient (CLI) | payer MEDICARE, SELFPAY ==
--- NOTE | 2020-04-06 08:49 | DI.CTLCSR_ITS ---
EXAM: CT CHEST LUNG CANCER SCREEN CLINICAL HISTORY: SCREENING FOR LUNG CA, FORMER SMOKER, Z87.891 TECHNIQUE: Imaging Protocol: Axial computed tomography images with coronal and sagittal reformatted images were created and reviewed COMPARISON: CT CT CHEST LUNG CANCER SCREEN from 04/04/[address] CHEST PE CTA from 11/07/2019 FINDINGS: Tracheobronchial tree: Patent where visualized. Mediastinum and Irene: No dominant adenopathy or fluid collection. Pulmonary parenchyma: No consolidation or dominant measurable mass. Moderate centrilobular emphysema. Lung Nodules: New 8 x 6 x 7 millimeter mildly spiculated nodule in the right upper lobe. Pleura: No effusion or pneumothorax. Heart: The heart is not dilated. Mild coronary artery calcifications are seen. Aorta: Thoracic aorta non-dilated.Mild calcification of the thoracic aorta. Moderate calcification of the visualized portions of the abdominal aorta. Upper abdomen: Unremarkable. Bones: Degenerative disc changes and scoliosis. Soft Tissues: Unremarkable. IMPRESSION: New 7 millimeters mean diameter right upper lobe nodule. Lung RADS Cat 4A - Suspicious: Findings for which additional diagnostic testing and/or tissue samplin g recommended Lung-RADS 1.0 CATEGORIES: Category 0 - Prior chest CT exam(s) being located for comparison. Category 1 - Annual screening in 12 months. No nodules or definitely benign nodules. Category 2 - Annual screening in 12 months. Benign appearance. Nodules with low likelihood of becomin g active cancer. Category 3 - 6-month follow-up. Probably benign. Short-term follow-up suggested. Nodules with low lik elihood of becoming active cancer. Category 4A - 3-month follow-up and CT/PET if >8 mm in size. Suspicious finding. Findings which requi re additional testing. Category 4B - Findings which require additional testing and tissue sampling. Suspicious finding. C Added to Any of the Above - History of prior lung cancer screening. S Added to Any of the Above - Significant unexpected other finding. RADIATION DOSE DELIVERED: 81.95mGy.cm Total DLP 1.84mGy CTDIvol DATA REPOSITORY: All CT scans at this facility are submitted to the National Radiology Data Registry (NRDR) Dose Index Registry (DIR) with the [employer] (ACR). RADIATION OPTIMIZATION: All CT scans at this facility use at least one of these dose optimization te chniques: automated exposure control; mA and/or kV adjustment per patient size (includes targeted exa ms where dose is matched to clinical indication); or iterative reconstruction.
== END 2020-04-06 02:47 ==
LOC: DI 02:46
PROVIDERS: PCP Family Medicine; Visit Provider Internal Medicine
DX: Z12.2 Encounter for screening for malignant neoplasm of respiratory organs (principal); R91.1 Solitary pulmonary nodule; Z87.891 Personal history of nicotine dependence
CPT/HCPCS: 71271

== ENCOUNTER 2020-04-06 03:10 | Outpatient (CLI) | payer MEDICARE, SELFPAY ==
--- NOTE | 2020-04-06 07:00 | DI.RAD_ITS ---
EXAM: XR SHOULDER LT COMPLETE 2+V CLINICAL HISTORY: left shoulder pain,M25.512. TECHNIQUE: 2D digital imaging was performed. COMPARISON: No exams were available for comparison FINDINGS: BONES: No acute fracture is present. No bony destructive lesion is seen. JOINTS: No dislocation present. There is no significant degenerative changes of the AC joint or gleno humeral joint. SOFT TISSUE: There are calcifications seen the posterior aspect of the humeral head is well as near t he upper 3rd of the shaft of the humerus which could indicate calcific tendinitis. IMPRESSION: Calcific tendinosis. DATA REPOSITORY: RADIATION DOSE DELIVERED:
== END 2020-04-06 03:11 ==
LOC: DI 03:11
PROVIDERS: PCP Family Medicine; Visit Provider Family Medicine
DX: M25.512 Pain in left shoulder (principal); M75.32 Calcific tendinitis of left shoulder
CPT/HCPCS: 71271; 73030

== ENCOUNTER 2020-05-29 02:15 | Outpatient (CLI) | payer MEDICARE, SELFPAY ==
[2020-05-30 11:19] LABS: COVID-19 RT-PCR UVMMC Result Negative (Negative)
== END 2020-05-29 02:16 | disposition home or self-care (01) ==
LOC: LBO 02:15
PROVIDERS: PCP Family Medicine; Visit Provider Family Medicine
DX: Z20.822 Contact with and (suspected) exposure to COVID-19 (principal)
CPT/HCPCS: U0003; U0005

== ENCOUNTER 2020-05-31 03:23 | Outpatient (CLI) | payer MEDICARE, SELFPAY ==
[2020-06-01 11:44] LABS: COVID-19 RT-PCR UVMMC Result Negative (Negative)
== END 2020-05-31 03:24 | disposition home or self-care (01) ==
LOC: LBO 03:23
PROVIDERS: PCP Family Medicine; Visit Provider Family Medicine
DX: Z20.822 Contact with and (suspected) exposure to COVID-19 (principal)
CPT/HCPCS: U0003; U0005

== ENCOUNTER 2020-06-16 05:35 | Emergency (ER) | payer MEDICARE, SELFPAY ==
[2020-06-16 05:36] VITALS: BP 168/97; PULSE 89; RESP 18; TEMP 36.5; O2SAT 96
--- NOTE | 2020-06-16 05:36 | ED.GENADUL_ITS ---
Discharge Plan Disposition Patient Disposition: HOME Condition: Good Discharge Details Clinical Impression: Abdominal pain Primary Care Provider: Gay Cooper ED Provider: Garrett Duke Discharge Instructions Instructions: Abdominal Pain (ED) Additional Instructions: At this time there was no clear etiology for your pain. Laboratory studies and CT scan are unremarkable. Possible that this was simply intestinal colic. Follow-up with primary care next week if continued intermittent problems. Return to ED for fever, persistent vomiting, severe/worsening abdominal pain. Referrals: Gay Cooper MD, [place] [Primary Care Provider] - Discharge Data Discharge Date/Time-TO BE ENTERED AT DEPARTURE: 06/16/20 09:45 Medical Decision Making Patient with acute onset of right-sided abdominal pain that is described as sharp and colicky. Pain tolerable at this point. Mild right CVAT. Relatively benign abdomen with no guarding or rebound. Suspect ureteral colic as likely source of pain. IV in place and will give fluids. As needed pain meds if needed. Laboratory studies and urine ordered. Will obtain CT stone. 07:30 - Patient's labs are unremarkable. No significant abnormalities. CT stone study has been read as negative for any acute pathology. She does have a right renal stone but no evidence of hydronephrosis, ureteral stone, obstruction. Patient continues to be pain-free after the IV Tylenol given by EMS. Still unable to provide urine sample. Assuming urine negative patient will be discharged home to follow-up with primary care next week if continued problems. Return to ED for fever, vomiting, recurrent/worsening pain. Medical Records Medical records reviewed: Yes I reviewed the patient's medical records. Lab Data Lab results reviewed: Yes I reviewed the patient's lab results. HPI General Mode of arrival: EMS . Date/Time Provider Initiated Documentation: 06/16/20 05:36 . Limitations to Documentation: no limitations . Information obtained by: patient, EMS, RN notes reviewed and old records reviewed . HPI Narrative: Patient presents to ED by ambulance with acute onset of right-sided abdominal pain that woke her up at 4 AM. She was totally fine yesterday. Went to bed with no issues. Woke up with severe, sharp, colicky pain in the right abdomen mostly lower quadrant. Denies any nausea vomiting. Denies any back pain. Denies any urinary symptoms. Pain takes her breath away but she is not short of breath anymore than usual. She has history of COPD and lung problems and is on home oxygen. She denies fever. She was given IV Tylenol in route. She reports pain being tolerable at this point. Related Data Allergies Allergy/AdvReac Type Severity Reaction Status Date / Time venlafaxine Allergy Severe EYES Verified 06/16/20 05:41 SWELL; SHAKINESS benzonatate Allergy Intermediate FACIAL Verified 06/16/20 05:41 SWELLING meloxicam Allergy Intermediate ITCHING Verified 06/16/20 05:41 diclofenac Allergy Unknown Verified 06/16/20 05:41 misoprostol Allergy Unknown Verified 06/16/20 05:41 General ANDREA: 3 Review of Systems Narrative: As documented in HPI otherwise negative as below. Const: no fever, chills, weakness Resp: no cough, SOB, pleuritic pain CV: no CP, diaphoresis, edema, syncope GI: no nausea, vomiting, diarrhea Neuro: no headache, numbness, focal weakness, confusion PFS Medical History Abnormal mammography Acute respiratory failure with hypoxia Carpal tunnel syndrome of right wrist Chronic obstructive lung disease, type A continues to smoke Community acquired pneumonia Depression Dysfunctional uterine bleeding Dyspepsia Gastric motor function disorder Hiatal hernia with GERD (04/27/17) Hypoxemia Influenza A Low back pain SAcraliliac pain. MRI negative for lumbar pathology; T11,T12 left disc herniation. Has been to spine clinic; does get comfort from chiropractic Mammogram abnormal cat 3; did not return for F/U Pressure sore on buttocks Sepsis Smoker quit in 2003; restarted; down to 3/day 11/08/18 - has not smoked for 5 days while ill with URI Tinnitus Surgical History Colonoscopy - MAC (04/27/17) EGD - MAC (04/27/17) foot surgery (07/11/11) Ligation of fallopian tube Open Carpal Tunnel release (02/15/16) right S/P foot surgery 07/11/11 Family History Mother , age 73 Diabetes Heart disease Hyperlipidemia Sepsis Asthma Father , age 58 Lymph node cancer Sister Lymph node cancer Sister , age 56 Chronic obstructive lung disease Asthma Brother No problems noted. Brother No problems noted. Brother No problems noted. Maternal Grandfather Stroke Paternal Grandfather Pulmonary tuberculosis Maternal Grandmother Heart disease Emphysema lung Asthma Paternal Grandmother Cancer Spider Son No problems noted. Daughter Substance abuse Depression Cervical cancer Social History Smoking/Tobacco Use Status: Former Tobacco Use Tobacco: How many years used: 30 Second Hand Exposure: Yes Smoking risk assessment performed?: Yes Alcohol Intake: former Drug use: Never Substance use type: does not use Caregiver/Support person: No Household members: spouse and other Details: grandchildren Housing: house Communication Needs: None current occupation: [employer] Pets and animals: Yes Pets and animals: cat(s) and dog(s) Sexually active: Yes Do you think of yourself as: straight/heterosexual Current gender identity: male What is your relationship status?: How often do you talk on the phone with friends or family?: three or more times per week How often do you get together with friends or relatives?: three or more times per week How often do you attend shinto or latter day services?: decline to answer Do you belong to any clubs or organized social groups?: no Panel score (0-1 are the most socially isolated patients): 2 What type of physical activity do you participate in: decline to answer Duration: decline to answer Frequency: decline to answer Alley/Methodist: No preference Special alley needs: No Seatbelt use: always Helmet use: Yes Helmet use: always Drive 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 HEENT: NC/AT. Normal facial exam. Eyes: Normal conjunctiva and sclera. Neck: Supple. Trachea midline. Lungs: Normal respiratory effort. Lungs with fine crackles throughout Cor: RRR without murmur/gallop. Good radial pulses. GI: Soft. NT/ND. No guarding or rebound. Back: Mild R CVAT Neuro: A+O x 3. Normal speech, mentation, gait. Cranial nerves II - XII grossly intact. No gross motor or sensory deficit. Ext: No C/C/E. Skin: Warm and dry without rash.
--- NOTE | 2020-06-16 05:45 | DI.CT_ITS ---
Exam(s) CT RENAL COLIC WO EXAM: CT RENAL COLIC WO CLINICAL HISTORY: acute onset R sided pain. TECHNIQUE: Imaging Protocol: Axial computed tomography images with coronal and sagittal reformatted images were created and reviewed CONTRAST MATERIAL: Intravenous: none Oral: None COMPARISON: Prior CT scan 11/07/2019 FINDINGS: VISUALIZED LUNG BASES: No nodules nor pleural effusions evident. ABDOMEN: There is no ascites. LIVER: There are no obvious focal hepatic lesions evident of this noninfused study. GALLBLADDER/BILIARY: No obvious gallbladder pathology. CBD is not dilated. PANCREAS: Paucity of retroperitoneal fat makes evaluation of pancreas difficult. However, there is n o evidence of obvious pancreatic mass nor dilatation of the pancreatic duct and no obvious peripancre atic fluid collection. SPLEEN: Spleen is not enlarged. No obvious intrasplenic lesions. ADRENALS: There are no significant adrenal masses. KIDNEYS:Both kidneys appear slightly hypodense. There are no distinct focal findings in the left kid antonio. There is a 3 millimeter nonobstructive midpole calculus in the right kidney. No other fainter calcifications of similar size is seen anteriorly in the right kidney. However, there are no calculi evident in the ureters which are not dilated.. No solid renal masses evident. ABDOMINAL AORTA: Abdominal aorta is atherosclerotic-calcified but not enlarged. No obvious para-aort ic adenopathy. LYMPH NODES: There is no retroperitoneal nor paraaortic adenopathy. ABDOMINAL WALL/GI: No evidence of significant anterior abdominal wall hernia. No bowel obstruction. No free air. No abscess. PELVIS: LYMPH NODES: No obvious intrapelvic nor inguinal adenopathy. GI: No evidence of appendicitis.No evidence of sigmoid diverticulitis. URINARY BLADDER: No calculi nor obvious masses evident REPRODUCTIVE: Age-appropriate OSSEOUS: No significant osseous lesions. IMPRESSION: 1. There are 2 nonobstructing small calculi in the right kidney. There are no calculi evident in the nondistended ureters nor within the urinary bladder. 2. Both kidneys appear symmetrically hypodense, possibly significant. Correlation with any signs of pyelonephritis recommended. RADIATION DOSE DELIVERED: 378.97mGy.cm Total DLP DATA REPOSITORY: All CT scans at this facility are submitted to the National Radiology Data Registry (NRDR) Dose Index Registry (DIR) with the [employer] (ACR). RADIATION OPTIMIZATION: All CT scans at this facility use at least one of these dose optimization te chniques: automated exposure control; mA and/or kV adjustment per patient size (includes targeted exa ms where dose is matched to clinical indication); or iterative reconstruction.
[2020-06-16] MEDS: Lactated Ringers 1,000 ML 1000 ML IV (05:53)
[2020-06-16 06:00] LABS: Abs Immature Grans 0.07 10^3/uL (0.0-0.06); Absolute Basophil Count 0.08 10^3/uL (0.0-0.2); Absolute Eosinophil Count 0.34 10^3/uL (0.0-0.7); Absolute Lymphocyte Count 1.73 10^3/uL (1.2-3.4); Absolute Monocyte Count 0.66 10^3/uL (0.1-0.8); Absolute Neutrophil Count 10.33 10^3/uL (1.2-6.7); Basophils % 0.6; Eosinophils % 2.6; HCT 42.9 % (36.0-46.0); HGB 13.8 g/dL (11.2-15.7); Immature Grans % 0.5; Lymphocytes % 13.1; MCH 30.6 pg (27.0-33.0); MCHC 32.2 % (32.0-36.0); MCV 95.1 fL (80-95); MPV 9.3 fL (8.0-11.0); Neutrophils % 78.2; Nucleated RBC 0 %; Platelet Count 322 10^3/uL (130-400); RBC 4.51 10^6/uL (3.93-5.22); RDW 11.9 % (11.7-14.6); WBC 13.21 10^3/uL (4.4-10.8)
[2020-06-16 06:12] LABS: ALT 30 U/L (14-59); AST 15 U/L (15-37); Albumin 4.3 g/dL (3.4-5.0); Alkaline Phosphatase 70 U/L (46-116); BUN 13 mg/dL (7-18); Bilirubin, Total 0.5 mg/dL (0.2-1.0); CREATININE 0.4 mg/dL (0.55-1.02); Calcium 9.1 mg/dL (8.5-10.1); Chloride 101 mmol/L (98-107); Glucose 89 mg/dL (74-106); Potassium 4.8 mmol/L (3.5-5.1); Sodium 138 mmol/L (136-145); Total Protein 7.5 g/dL (6.4-8.2)
--- NOTE | 2020-06-16 07:22 | DI.VRAD_ITS ---
PROCEDURE INFORMATION: Exam: CT Abdomen And Pelvis Without Contrast Exam date and time: 06/16/2020 5:51 AM Age: 55 years old Clinical indication: Pain; Other: Right-sided TECHNIQUE: Imaging protocol: Computed tomography of the abdomen and pelvis without contrast. Radiation optimization: All CT scans at this facility use at least one of these dose optimization techniques: automated exposure control; mA and/or kV adjustment per patient size (includes targeted exams where dose is matched to clinical indication); or iterative reconstruction. COMPARISON: CT ABD PELVIS WITH CONTRAST 04/29/2017 6:16 PM FINDINGS: Liver: No acute abnormality. Gallbladder and bile ducts: No stones. No ductal dilation. Pancreas: No ductal dilation. Spleen: No acute abnormality. Adrenal glands: Normal. No mass. Kidneys and ureters: No ureter or obstructing renal stones. No hydronephrosis. Nonobstructing stone in the right kidney Stomach and bowel: No bowel obstruction. Moderate stool Appendix: No evidence of appendicitis. Intraperitoneal space: No free air. No significant fluid collection. Vasculature: No abdominal aortic aneurysm. Lymph nodes: No enlarged lymph nodes. Urinary bladder: Unremarkable as visualized. Reproductive: No acute findings. Bones/joints: No acute fracture. Soft tissues: No acute findings. IMPRESSION: 1. No acute findings. 2. No ureter or obstructing renal stones. No hydronephrosis. 3. Nonobstructing stone in the right kidney Dictated and Authenticated by: Dereck Austin MD. Ordering:ELPIDIO Tucker MD
[2020-06-16] MEDS: Normal Saline Flush 10 ML SYR IVP (08:01)
[2020-06-16 08:14] LABS: Bilirubin Negative (Negative); Blood Trace-intact (Negative); Clarity Clear (Clear); Glucose Negative (Negative); Ketones Negative (Negative); Leukocyte Esterase Negative (Negative); Nitrite Negative (Negative); Urobilinogen 0.2 EU/dL (Up TO 0.2)
[2020-06-16 08:21] LABS: Bacteria Negative HPF (Negative); C & S Indicated? No; Casts Negative LPF (Negative); Crystals Negative HPF (Negative); Epithelial Cells Rare HPF (Negative); Mucus Negative (Negative); RBC 0-2 HPF (0-2); WBC Negative HPF (0-5)
== END 2020-06-16 09:45 | disposition home or self-care (01) ==
PROVIDERS: Emergency Provider Emergency Medicine; PCP Family Medicine
DX: R10.31 Right lower quadrant pain (principal)
CPT/HCPCS: 36415; 80053; 96360; 96361; 99285; 74176; 81003; 81015; 85025; 99284

== ENCOUNTER 2020-06-19 03:07 | Outpatient (CLI) | payer MEDICARE, SELFPAY ==
[2020-06-20 16:08] LABS: COVID-19 RT-PCR UVMMC Result Negative (Negative)
== END 2020-06-19 03:08 | disposition home or self-care (01) ==
PROVIDERS: PCP Family Medicine; Visit Provider Family Medicine
DX: Z20.822 Contact with and (suspected) exposure to COVID-19 (principal)
CPT/HCPCS: U0003; U0005

== ENCOUNTER 2020-07-12 10:47 | Outpatient (REF) | payer MEDICARE, SELFPAY ==
--- OUTSIDE RECORDS SUMMARY | 2020-07-12 10:51 | XMS_ITS ---
:1965 Author Care Team Providers Name Role Phone AMBER GABRIEL Primary Care Provider [phone] Allergies Code Code System Name Reaction Severity Status Onset 11564 RxNorm Benzonatate ? ? Active ? 3355 RxNorm Diclofenac ? ? Active ? 70486 RxNorm Meloxicam ? ? Active ? 78366 RxNorm Misoprostol ? ? Active ? 81669 RxNorm Venlafaxine ? ? Active ? Medications Name Status Start Date Stop Date ? ? albuterol sulf 90 mcg/actuation breath activated powder inhaler, sensor Active ? Not available Inhale 2 puffs every 4 hours by inhalation route. Anoro Ellipta 62.5 mcg-25 mcg/actuation powder for inhalation Ac tive ? Not available Inhale 1 puff every day by inhalation route. hydrocodone 5 mg-acetaminophen 300 mg tablet Completed ? 08/26/2019 Take 1 tablet every 4 hours by oral route. ipratropium 0.5 mg-albuterol 2.5 mg/2.5 mL solution for nebuliza tion Active ? Not available Inhale by inhalation route. ipratropium 0.5 mg-albuterol 3 mg (2.5 mg base)/3 mL nebulizatio n soln Active ? Not available Inhale 3 mL 4 times a day by nebulization route. levofloxacin 500 mg tablet Completed ? 08/25 Take 1 tablet every 24 hours by oral route for 7 days. miconazole nit 0.25 %-zinc ox 15 Completed ? 12/30/2019 %-petrolatum 81.35 % topical ointment mirtazapine 15 mg tablet Active ? Not ayde ilable Take 1 tablet every day by oral route. mirtazapine 7.5 mg tablet Completed ? 2019 Take 1 tablet every day by oral route. Nebulizer Active ? Not available nystatin 100,000 unit/gram topical cream Completed ? 06/08/2020 APPLY TO THE AFFECTED AREA(S) BY TOPICAL ROUTE 2 TIMES PER DAY prednisone 10 mg tablet Completed ? 08/26/19 20 Take 4 tablets every day by oral route for 4 days, then take 3 tablets every day by oral route for 4 days, then take 2 tablets every day by oral route for 4 days, and then take 1 tablet every day by oral route for 4 days then stop. prednisone 20 mg tablet Completed ? 08/26/19 20 Take 1 tablet every day by oral route. Symbicort 160 mcg-4.5 mcg/actuation HFA aerosol inhaler Complete d ? 12/30/2019 Inhale 2 puffs twice a day by inhalation route. Problems Name Status Onset Date Source ? Smoker Active 03/07/2019 ? Depressive Disorder Active 03/07/2019 ? Carpal Tunnel Syndrome Active 03/07/2019 ? Tinnitus Active 03/07/2019 ? Deep Venous Thrombosis Active 03/07/2019 ? Chronic Obstructive Lung Disease Active 03/07/2019 ? Nonulcer Dyspepsia Active 03/07/2019 ? Hiatal Hernia Active 03/07/2019 ? Chronic Back Pain Active 03/07/2019 ? Sleep Apnea Unknown 03/07/2019 ? Obstructive Sleep Apnea Syndrome Active 08/26/2019 ? Procedures Date Name Performed by ? 07/01/2019 LDCT, Chest, for Lung Cancer Xray [facility] [address] [address] [place], [place] [address] (Work Place) 04/19/2020 CT, Chest, W/o Contrast Xray [facility] [address] [place], [place] [address] (Work Place) Results Lab Results Date Name Specimen Result Interpretation Description Value Range Status Address ? 07/01/2019 SARS CoV 2 RNA ? No observation ? ? ? [facility] (COVID-19), QL, recorded. [place] [facility] cub-[facility], [facility]: [address] Spec[address] [facility] 07/01/2019 SARS CoV 2 RNA ? No observation ? ? ? [place] (COVID-19), QL, recorded. [facility] cub-PCR, (Interna l): [address] , Specimen [place] Past Encounters 06/08/2020 Chronic Obstructive Lung Disease; Obstru ctive Sleep Apnea Syndrome Tabitha Meyers MD: [address] [place] [address] Dr mcintosh [address], [place] [address], Ph. 04/19/2020 Chronic Obstructive Lung Disease; Obstru ctive Sleep Apnea Syndrome; Ex-smoker Tabitha Meyers MD: [address] [place] [address] Dr dayna Fisher [address] [place] [phone], Ph. 12/30/2019 Chronic Obstructive Lung Disease; Obstru ctive Sleep Apnea Syndrome Tabitha Meyers MD: [address] [place] [address] Dr dayna Fisher [address] [place] [phone], Ph. 08/26/2019 Chronic Obstructive Lung Disease; Obstru ctive Sleep Apnea Syndrome Tabitha Meyers MD: [address] [place] [address] Dr dayna Fisher [address] [place] [phone], Ph. 07/01/2019 Sleep Apnea; Chronic Obstructive Lung Di sease; Ex-smoker Tabitha Meyers MD: [address] [place] [address] Dr dayna Fisher [address] [place] [phone], Ph. Social History Tobacco Smoking Status Former Smoker (1 PPD) Notes: QUIT SEP 2018 Vaccine List Vaccine Type influenza, injectable, quadrivalent 11/18/2018 11/10/2019 pneumococcal conjugate PCV 13 12/14/2017 pneumococcal polysaccharide PPV23 01/10/2019 Tdap 04/22/2011 Plan of Care Reminders Provider Appointments None ? ? recorded. Lab None ? ? recorded. Referral None ? ? recorded. Procedures None ? ? recorded. Surgeries None ? ? recorded. Imaging None ? ? recorded. Vitals 06/08/2020 02:15PM Office 30 Height Weight BMI Blood Pressure 152.4 cm 42.6 kg 18.3 kg/m2 132/81 mm[Hg] 04/19/2020 01:00PM Office 30 Height Weight BMI Blood Pressure 152.4 cm 44.3 kg 19.1 kg/m2 125/75 mm[Hg] 12/30/2019 12:30PM Office 30 Height Weight BMI Blood Pressure 152.4 cm 47.2 kg 20.3 kg/m2 122/64 mm[Hg] 08/26/2019 11:30AM Office 15 Height Weight BMI Blood Pressure 152.4 cm 46.85 kg 20.2 kg/m2 128/64 mm[Hg] 07/01/2019 01:00PM Office 15 Height Weight BMI Blood Pressure 152.4 cm 44.4 kg 19.1 kg/m2 134/80 mm[Hg]
--- OUTSIDE RECORDS SUMMARY | 2020-07-12 10:51 | XMS_ITS | Encounter Summary ---
:1965 Author Care Team Providers Name Role Phone Gay Cooper Primary Care Provider [phone] Reason for Visit Chronic obstructive lung disease; Obstru ctive sleep apnea syndrome Assessment and Plan 1. Chronic obstructive lung dise ase Very severe obstructive airway s disease. Thankfully she continues to stay away from cigarette smoke. She will continue with Anoro and Symbicort as well as her nebulizer. New prescription for the nebulizer was given. Her breathing is now stable, has not had any setbacks since October, she will continue with supplemental oxygen on exertion thankfully, her alpha-1 antitrypsin defi ciency genetic testing showed normal, MM phenotype. In the future, if she continues to have repeated respiratory infections and COPD exacerbations, she can be considered on daily Zithromax chronic antibiotic suppressive therapy or on Daliresp. In terms of her lung cancer screening ex ams, she will need another follow-up low-dose CT screening for lung cancer in 6 months, this will be done in September,, shared decision making was done, exam w as ordered. There is a sharply demarcate d right upper lobe 7 x 5.8 mm nodule which was there and stable in size from 11/07/2019, but new from 04/04/2019. If there is no interval change by September, she may go back to yearly screening exams. Now t here is also a new twin nodules in the right and right apex, on image 75, it may represent just mucus occluded airways. These will be also reevaluated on the new CAT scan in September. Patient is aware that I am leaving the [facility] in June, I ordered the CT and I have made arrangements for her to have a follow-up with Dr. Chun on the images later in September, Her immunizations are up-to-date. She already completed pulmonary rehab ASV titration study 04/25/2020 shows opti mal pressure AVAPS AE: IMAX 20, E max 15, E min 4, pressure support maximum 16, pressure support minimum 4, rate of auto, 1 L/min supplemental oxygen bled in, mello s was successful during left-sided REM a nd non-REM sleep as well as during supine non-REM sleep. Without supplemental oxygen she remained hypoxemic. PLM index 13.9/h, PLM arousal index 9.8/h, patient used AirFit F 20 small full facemask, BMI 18.9 Based on this, her trilogy settings will continue to be the same. Her recent trilogy download 05/07/2020? shows that the patient used more than 4 hours per night almost every night, average IPAP pressure 16, average daily use of 4.1 hours, average EPAP is 5, tidal volume 380 cc ? ipratropium 0.5 mg-albuter ol 3 mg (2.5 mg base)/3 mL nebulization soln 2. Obstructive sleep apnea syndr ome Overnight polysomnogram 020 shows AHI 11.6/h, RDI 15.1/h, just barely less than 50% of the total events were central apneas, REM related AHI 32.9/h, saturation rin 74% on room air wi th 128 minutes spent below the saturatio n of 88%, arousal index 17/h, PLM index 1.1/h, PLM arousal index 0.2/h, very poor EKG signal, unsure whether there were P waves. There was somewhat poor sleep e fficiency and elevated arousal index wit h fragmented sleep despite of the patient taking 7.5 mg of mirtazapine, with minimal REM sleep and almost completely absent N3 sleep. She is now on mirtazapine to 15 mg on , it is working well for her ASV titration study 04/25/2020 shows opti mal pressure AVAPS AE: IMAX 20, E max 15, E min 4, pressure support maximum 16, pressure support minimum 4, rate of auto, 1 L/min supplemental oxygen bled inmello s was successful during left-sided REM a nd non-REM sleep as well as during supine non-REM sleep. Without supplemental oxygen she remained hypoxemic. PLM index 13.9/h, PLM arousal index 9.8/h, patient used AirFit F 20 small full facemask, BMI 18.9 Discussion Note 30+ minutes was spent chart preppin g, reviewing history and counseling and providing medical care. Patient educational handouts: No information available. Plan of Care Reminders Provider Appointments None ? ? recorded. Lab None ? ? recorded. Referral None ? ? recorded. Procedures None ? ? recorded. Surgeries None ? ? recorded. Imaging None ? ? recorded. Medications Name Start Date ? ? albuterol sulf 90 mcg/actuation breath activated powde r inhaler,sensor ? Inhale 2 puffs every 4 hours by inhalation route. Anoro Ellipta 62.5 mcg-25 mcg/actuation powder for inh alation ? Inhale 1 puff every day by inhalation route. ipratropium 0.5 mg-albuterol 2.5 mg/2.5 mL solution fo r nebulization ? Inhale by inhalation route. ipratropium 0.5 mg-albuterol 3 mg (2.5 mg base)/3 mL n ebulization soln ? Inhale 3 mL 4 times a day by nebulization route. mirtazapine 15 mg tablet ? Take 1 tablet every day by oral route. Nebulizer ? Medications Administered None recorded. Vitals Height Weight BMI Blood Pressure 5 ft 42.6 kg 18.3 kg/m2 132/81 mm[Hg] Results Lab Results None recorded. Allergies Code Code System Name Reaction Severity Onset 28628 RxNorm Benzonatate ? ? ? 3354 RxNorm Diclofenac ? ? ? 67754 RxNorm Meloxicam ? ? ? 25360 RxNorm Misoprostol ? ? ? 22525 RxNorm Venlafaxine ? ? ? Problems Name Status Onset Date Source ? Smoker Active 03/07/2019 ? Depressive Disorder Active 03/07/2019 ? Carpal Tunnel Syndrome Active 03/07/2019 ? Tinnitus Active 03/07/2019 ? Deep Venous Thrombosis Active 03/07/2019 ? Chronic Obstructive Lung Disease Active 03/07/2019 ? Nonulcer Dyspepsia Active 03/07/2019 ? Hiatal Hernia Active 03/07/2019 ? Chronic Back Pain Active 03/07/2019 ? Obstructive Sleep Apnea Syndrome Active 08/26/2019 ? Procedures None recorded. Vaccine List Vaccine Type influenza, injectable, quadrivalent 11/18/2018 11/10/2019 pneumococcal conjugate PCV 13 12/14/2017 pneumococcal polysaccharide PPV23 01/10/2019 Tdap 04/22/2011 Social History Tobacco Smoking Status Former Smoker (1 PPD) Notes: QUIT SEP 2018 Exposure to Asbestos N Exposure to Chemicals or Toxins N Pets? Y Notes: 4 DOGS, CA T Blind or serious difficulty N seeing Deaf or serious difficulty N hearing Exposure to Silica N Tobacco-years of use 25 Functional Status No Impairment. Past Encounters 06/08/2020 Chronic Obstructive Lung Disease; Obstru ctive Sleep Apnea Syndrome Tabitha Meyers MD: [address] [place] [address] Dr mcintosh [facility], [place] [phone], Ph. History of Present Illness Note: <p>54-year-old woman who comes in for follow up on COPD with frequent exacerbations as well as mild obstructive sleep apnea with poorly restful sleep , currently on trilogy ventilator therapy with supplemental oxygen bled in , and she had a recent trilogy/ASV titration study on 04/25/2020, she is here to review results.</p><p>
</p><p>Her current trilogy settings are AVAPS/AE mode, AVAPS rate 3 cm water, tidal volume 375 cc, IMAX 20, E max 15, E minimum 4, pressure support maximum 16, pressure support minimum 4, rate of auto, 1 L/min oxygen bled in
</p><p>
</p><p>
</p><p>Lucille campbell tells me that for the last 2 years she has repeated respiratory infections, in 2018 she had 2 hospital admissions, she needs repeated courses of prednisone.
</p><p>She then had a hospital admission for sepsis and pneumonia on 11/07/2019. Since then she is feeling well.
</p><p>No respiratory related setbacks since then.
</p><p> She is on 2 L/min supplemental oxygen on exertion. She already got her flu shot. She is somewhat hesitant about the Covid vaccine </p><p>She is using albuterol up to 3 times a day and her nebulizer 3 times a day, she is on Anoro and Symbicort 2 puffs twice a day.</p><p>For her sleep apnea she was on auto CPAP 6–16 cmH2O, she was doing very well with that. During the hospital admission on , she was switched over to Trilogy ventilator. The patient is using 1 L of oxygen bled in that setting, she is very comfortable. </p><p>
</p><p>She is now taking mirtazapine 15 mg at night, every other night.</p><p>
</p><p>No GERD or postnasal drip.</p><p>
</p><p>Her pneumonia and flu shot are up-to-date</p><p>
</p><p>Social history: Quit smoking in September,, overall 88-bhln-uyli smoking history. 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 Currently works at a [employer] but right now does not work due to the COVID-19 infections. She has no exposureto inhaled irritants such as asbestos or silica or dust or farming. She has 4 dogs and 1 cat. No birds.</p><p>
</p><p>Family history,: Mother had asthma, grandmother had emphysema, father of throat cancer. Sister possibly had TB. Family was never tested.</p> Review of Systems ? Notes: <p>as above</p> Physical Exam ? Notes: <p>Middle-aged, thin woman i n no acute distress</p><div>
</div><div>Chest: Bilateral air entry with heraclio ar breath sounds</div><div>
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 She has markedly prolonged expiratory phase with end expiratory wheezing on forceful exhalation</div><div>
</d iv><div>Heart: S1-S2 normal
</div><div>
</d iv><div>Extremities: NO clubbing, no edema or cyanosis</div><div>
</div ><div>Neuro: Alert Oriented ?3</div>
--- OUTSIDE RECORDS SUMMARY | 2020-07-12 10:51 | XMS_ITS | Encounter Summary ---
:1965 Author Care Team Providers Name Role Phone Gay Cooper Primary Care Provider [phone] Reason for Visit imaging follow up Assessment and Plan 1. Chronic obstructive lung dise ase Very severe obstructive airway s disease. Thankfully she continues to stay away from cigarette smoke. She ran out of her Anoro about 4 months ago as it was prohibitively expensive. With the new year her coverage improved. New prescription was sent. She will fill that prescription and continue with Symbicort as well. Her breathing is now stable, has not had any setbacks since October, she will continue with supplemental oxygen on exertion thankfully, her alpha-1 antitrypsin defi ciency genetic testing showed normal, MM phenotype. In the future, if she continues to have repeated respiratory infections and COPD exacerbations, she can be considered on daily Zithromax chronic antibiotic suppressive therapy. In terms of her lung cancer screening [...] is aware that I am leaving the [facility] in June, I ordered the CT and I have made arrangements for her to have a follow-up with Dr. Chun on the images later in September, Her immunizations are up-to-date. She already completed pulmonary rehab 01/09/20, after multiple phone calls wit [facility] [employer] it appears that the patient's CPAP machine was discontinued, she was started on trilogy ventilator upon hospital discharge for repeated COPD exacerbations. [facility] could no t give me the setting, but they sent me a download, average IPAP 15, average EPAP 5, average tidal volume 378 cc, average rate 18. [facility] will send me the ex act settings. She will proceed with a ti tration study for CPAP to make sure that her central apneas are eliminated and depending on what optimal pressure we find for CPAP, will translate into her trilog y setting. It is very upsetting that I w as not made aware that her ventilation strategy was changed from CPAP to trilogy She will bring in her trilogy machine ne xt week for her titration study, he will be started on her current setting and I will have the techs interrogate the machine and let me know what the setting on t hat is, titration will be started on 1 L /min supplemental oxygen and oxygen will be titrated as well. Patient will follow-up with me at the end of May and will finalize her settings before I leave the practice ? Anoro Ellipta 62.5 mcg-25 mcg/actuation powder for inhalation ? CT, chest, w/o contrast - due sep 2020, f u RUL nodule. This should be a LDCT follow up exam 2. Obstructive sleep apnea syndr ome Overnight [...] now on mirtazapine to 15 mg on nights, it is working well for her 01/09/20, after multiple phone calls wit h [facility] it appears that the patient's CPAP machine was discontinued, she was started on trilogy ventilator upon hospital discharge for repeated COPD exacerbations. [facility] could no t give me the setting, but they sent me a download, average IPAP 15, average EPAP 5, average tidal volume 378 cc, average rate 18. [facility] will send me the ex act settings. She will proceed with a ti tration study for CPAP to make sure that her central apneas are eliminated and depending on what optimal pressure we find for CPAP, will translate into her trilog y setting. It is very upsetting that I w as not made aware that her ventilation strategy was changed from CPAP to trilogy She will bring in her trilogy machine ne xt week for her titration study, he will be started on her current setting and I will have the techs interrogate the machine and let me know what the setting on t hat is, titration will be started on 1 L /min supplemental oxygen and oxygen will be titrated as well. Patient will follow-up with me at the end of May and will finalize her settings before I leave the practice Addendum: Trilogy machine setting was in terrogated during her nighttime titration study on 04/24/2020, setting was found as AVAP AE mode AVAP rate 3.0 cm H20 Tidal Volume 375 Max pressure 20 PS max 16 PS min 4 EPAP max 15 EPAP min 4 BR Auto 3. Ex-smoker Discussion Note 40+ minutes was spent chart preppin g, reviewing history and counseling and providing medical care. Patient educational handouts: No information available. Plan of Care Reminders Provider Appointments None ? ? recorded. Lab None ? ? recorded. Referral None ? ? recorded. Procedures None ? ? recorded. Surgeries None ? ? recorded. Imaging CT, Chest, [facility] X ray W/o Contrast 04/19/2020 Medications Name Start Date ? ? albuterol [...] Height Weight BMI Blood Pressure 5 ft 44.3 kg 19.1 kg/m2 125/75 mm[Hg] Results Lab Results None recorded. Allergies Code Code System Name Reaction Severity Onset RxNorm Benzonatate ? ? ? 3355 RxNorm Diclofenac ? ? ? 93756 RxNorm Meloxicam ? ? ? 31997 RxNorm Misoprostol ? ? ? 42369 RxNorm Venlafaxine ? ? ? Problems Name [...] ? Procedures Date Name Performed by ? 04/19/2020 CT, Chest, W/o Contrast Xray [facility] [address] [place], [place] [address] (Work Place) Vaccine List Vaccine Type influenza, injectable, quadrivalent [...] 25 Functional Status No Impairment. Past Encounters 04/19/2020 Chronic Obstructive Lung Disease; Obstru ctive Sleep Apnea Syndrome; Ex-smoker Tabitha Meyers MD: [address] [place] [address] Dr mcintosh [address], [place] [phone], Ph. History of Present Illness Note: <p>54-year-old woman who comes in for follow up on COPD with frequent exacerbations as well as mild obstructive sleep apnea with poorly restful sleep , currently on trilogy ventilator therapy with supplemental oxygen bled</p><p>
</p><p>
</p>&lt ;p>Patient tells me that for the last 2 years she has repeated respiratory infections, in 2018 she had 2 hospital admissions, she needs repeated courses of prednisone. </p><p>She has notneeded antibiotics or prednisone since 08/26/2019.</p><p>She then had a hospital admission for sepsis and pneumonia on 11/07/2019. Since then she is feeling well. She is on 2 L/min supplemental oxygen on exertion. She already got her flu shot.
</p><p>She is using albuterol up to 3 times a day and her nebulizer 3 times a day she ran out of her Anoro in November,, has not filled it since. She is still taking Symbicort 2 puffs twice a day.</p><p>For her sleep apnea she was on auto CPAP 6–16 cmH2O, she was doing very well with that. During the hospital admission on October,, she was switched over to trilogy ventilator. I am still waiting for [facility] to send me the actual settings on it. The patient is using 1- 1/2 L of oxygen bled in that setting, she is very comfortable. Somehow her CPAP machine got taken away. She is now scheduled for a titration study in a week. She is using the trilogy ventilator every night
</p>< p>
</p><p>She is now taking mirtazapine 15 mg at night, every other night.</p><p>
</p><p>No GERD or postnasal drip.</p><p>
</p><p>Her pneumonia and flu shot are up-to-date</p><p>
</p><p>Social history: Quit smoking in September,, overall [id number]-ubkk smoking history. 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 Currently works at a [employer] but right now does not work due to the COVID-19 infections. She has no exposure to inhaled irritants such as asbestos or silica or dust or farming. She has 4 dogs and 1 cat. No birds.</p><p>
</p><p >Family history,: Mother had asthma, grandmother had emphysema, father of throat cancer. Sister possibly had TB. Family was never tested.</p> Review of Systems ? Notes: <p>as above</p> Physical Exam ? Notes: <p>Middle-aged, thin woman i n no acute distress</p><div>
</div><div>Chest: Bilateral air entry with heraclio ar breath sounds</div><div>
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 She has markedly prolonged expiratory phase with end expiratory wheezing on forceful exhalation</div><div>
</d iv><div>Heart: S1-S2 normal
</div><div>
</d iv><div>Extremities: NO clubbing, no edema or cyanosis</div><div>
</div ><div>Neuro: Alert Oriented ?3</div>
[2020-07-12 13:17] LABS: Abs Immature Grans 0.02 10^3/uL (0.0-0.06); Absolute Basophil Count 0.06 10^3/uL (0.0-0.2); Absolute Eosinophil Count 0.15 10^3/uL (0.0-0.7); Absolute Lymphocyte Count 1.38 10^3/uL (1.2-3.4); Absolute Monocyte Count 0.46 10^3/uL (0.1-0.8); Absolute Neutrophil Count 4.55 10^3/uL (1.2-6.7); Basophils % 0.9; Eosinophils % 2.3; HCT 39.6 % (36.0-46.0); HGB 12.9 g/dL (11.2-15.7); Immature Grans % 0.3; Lymphocytes % 20.8; MCH 30.7 pg (27.0-33.0); MCHC 32.6 % (32.0-36.0); MCV 94.3 fL (80-95); MPV 9.8 fL (8.0-11.0); Monocytes % 6.9; Neutrophils % 68.8; Nucleated RBC 0 %; Platelet Count 301 10^3/uL (130-400); RDW 12.3 % (11.7-14.6); RDW-SD 42.6 fL; WBC 6.62 10^3/uL (4.4-10.8)
[2020-07-12 13:29] LABS: ESR 11 mm/hr (0-30)
[2020-07-12 14:10] LABS: ALT 25 U/L (14-59); AST 13 U/L (15-37); Albumin 3.9 g/dL (3.4-5.0); Alkaline Phosphatase 69 U/L (46-116); Anion Gap 5.4 mmol/L (3-11); BUN 16 mg/dL (7-18); Bilirubin, Total 0.3 mg/dL (0.2-1.0); C-Reactive Protein 0.11 mg/dL (0.0-0.3); CO2 34.6 mmol/L (21.0-32.0); CREATININE 0.6 mg/dL (0.55-1.02); Calcium 9.2 mg/dL (8.5-10.1); Chloride 101 mmol/L (98-107); Glucose 101 mg/dL (74-106); Potassium 4.6 mmol/L (3.5-5.1); Sodium 141 mmol/L (136-145); TSH (W/Ref FT4) 0.89 uIU/mL (0.36-3.74); Total Protein 6.8 g/dL (6.4-8.2)
== END 2020-07-12 10:48 | disposition home or self-care (01) ==
LOC: LBN 10:47
PROVIDERS: PCP Family Medicine; Visit Provider Family Medicine
DX: R10.31 Right lower quadrant pain (principal); J44.9 Chronic obstructive pulmonary disease, unspecified; R63.4 Abnormal weight loss; M25.512 Pain in left shoulder
CPT/HCPCS: 80053; 85652; 84443; 85025; 86140

== ENCOUNTER → 2020-07-13 04:05 | Outpatient (CLI) | payer MEDICARE, SELFPAY ==
--- NOTE | 2020-07-13 07:30 | DI.CT_ITS ---
Exam(s) CT ABDOMEN PELVIS W EXAM: CT ABDOMEN PELVIS W CLINICAL HISTORY: RLQ pain,R10.31 TECHNIQUE: Imaging Protocol: Axial computed tomography images with coronal and sagittal reformatted images were created and reviewed CONTRAST MATERIAL: Intravenous: Omnipaque 350 Contrast volume:100 mL Oral: Yes COMPARISON: CT CT RENAL COLIC WO from 06/16/2020 FINDINGS: ABDOMEN: Lung Bases: Normal where visualized. Liver: Normal density. There are few tiny hypodensities in the liver. They are too small for further characterization but likely reflect small cysts. Portal, Superior Mesenteric, and Splenic Veins: Unremarkable. Gallbladder and Biliary Tract: No gallstones. Common duct measures up to 8 mm. No intrahepatic bili erika ductal dilatation. Pancreas: Normal density, no abnormal calcifications or inflammatory process. Spleen: Normal. Adrenals: No masses seen. Kidneys: Normal size, contour and axis. No radiodense stones or obstructive uropathy. No masses seen. Abdominal Aorta: Abdominal portion non-dilated. Atherosclerosis. Bowel: No obstruction or bowel wall thickening. Normal appendix is visualized. Peritoneal Cavity: No ascites, collection or mesenteric inflammatory response. No free air. Lymph Nodes: Within normal limits. Bones: Within normal limits for the patient's age. Soft Tissues: Unremarkable. PELVIS: Bladder: Symmetric distention, no gross wall thickening. Reproductive Organs: Unremarkable as visualized. Lymph Nodes: Within normal limits. Bones: Within normal limits for the patient's age. IMPRESSION: 1. Mild extrahepatic biliary ductal dilatation. No definite pancreatic mass. No cholelithiasis. Pl ease correlate clinically. Further evaluation with MRI and MRCP should be considered. 2. Normal appendix. RADIATION DOSE DELIVERED: 414.07mGy.cm Total DLP DATA REPOSITORY: All CT scans at this facility are submitted to the National Radiology Data Registry (NRDR) Dose Index Registry (DIR) with the [employer] (ACR). RADIATION OPTIMIZATION: All CT scans at this facility use at least one of these dose optimization te chniques: automated exposure control; mA and/or kV adjustment per patient size (includes targeted exa ms where dose is matched to clinical indication); or iterative reconstruction.
[2020-07-13] MEDS: Breeza Beverage 473 ML BTL PO ×2 (08:58→08:59)
[2020-07-13] MEDS: Omnipaque 350 MG/ML 100 ML BTL IJ (10:25)
[2020-07-13] MEDS: Omnipaque 350 MG/ML 50 ML BTL PO (10:32)
== END ==
PROVIDERS: PCP Family Medicine; Visit Provider Family Medicine
DX: R10.31 Right lower quadrant pain (principal); K83.8 Other specified diseases of biliary tract
CPT/HCPCS: 74177; J3490; Q9967

== ENCOUNTER 2020-07-13 10:08 | Outpatient (REF) | payer MEDICARE, SELFPAY ==
[2020-07-13 10:28] LABS: Bilirubin Negative (Negative); Blood Negative (Negative); Clarity Clear (Clear); Glucose Negative (Negative); Ketones Negative (Negative); Leukocyte Esterase Negative (Negative); Nitrite Negative (Negative); Urobilinogen 0.2 EU/dL (Up TO 0.2)
== END 2020-07-13 10:09 | disposition home or self-care (01) ==
LOC: LBN 10:08
PROVIDERS: PCP Family Medicine; Visit Provider Family Medicine
DX: R10.9 Unspecified abdominal pain (principal)
CPT/HCPCS: 81003

== ENCOUNTER → 2020-08-01 01:16 | Outpatient (CLI) | payer MEDICARE, SELFPAY ==
--- NOTE | 2020-08-01 06:30 | DI.MRI_ITS ---
Exam(s) MR ABDOMEN WO EXAM: MR ABDOMEN WO CLINICAL HISTORY: abnl CT Scan, 13 lb wt loss in 6 mO.DILATED BILE DUCT,ABD PAIN,K83.8,R63.4, TECHNIQUE: Multiplanar multisequence MRI was performed without IV contrast. COMPARISON: CT CT ABDOMEN PELVIS W from 07/13/[address] ABDOMEN PELVIS W from 07/13/2020 FINDINGS: VISUALIZED LUNG BASES: No pleural effusions evident. There is no ascites evident. LIVER: No obvious focal hepatic lesions evident on this noninfused study. No prominent dilatation of intrahepatic ducts. BILIARY: There is no obvious gallbladder pathology. The CBD is not dilated. PANCREAS: There is no evidence of pancreatic mass nor dilatation of the pancreatic duct. SPLEEN: Spleen is not enlarged and there are no intrasplenic lesions.Splenic and portal veins are pat ent ADRENALS: There are no significant adrenal masses. KIDNEYS: No solid renal masses. No hydronephrosis.No cysts evident. The small calculus seen in the right kidney on the recent CT scan is not able to be appreciated on on MR study. ABDOMINAL AORTA: Not enlarged and there is no significant para-aortic adenopathy. ANTERIOR ABDOMINAL WALL/GI: There is no evidence of significant anterior abdominal wall hernia in the field of view of this study.Is no evidence of obvious bowel obstruction. OSSEOUS: There are no lytic osseous lesions in the field of view of this study. Incidentally noted are Tarlov intra sacral cyst in the partially visualized sacral canal. IMPRESSION: 1. No significant dilatation of the biliary tree nor of the pancreatic duct and, as per request. No focal hepatic lesions evident on this noninfused study. 2. No significant renal findings although please note that the small nonobstructive calculus seen in the right kidney on the recent CT scan is difficult to visualize with MR imaging. 3. 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 DATA REPOSITORY:
--- NOTE | 2020-08-02 07:47 | DI.VRAD_ITS ---
PROCEDURE INFORMATION: Exam: MR Abdomen Without Contrast Exam date and time: 08/01/2020 9:53 AM Age: 55 years old Clinical indication: Abdominal pain; Generalized TECHNIQUE: Imaging protocol: MR of the abdomen without contrast. COMPARISON: 1. CT ABDOMEN PELVIS W 07/13/2020 10:[address] ABD PELVIS WITH CONTRAST 04/29/2017 6:16 PM FINDINGS: Liver: No mass. Gallbladder and bile ducts: Unremarkable. No stones. No ductal dilation. Pancreas: Unremarkable. No ductal dilation. Spleen: Unremarkable. No splenomegaly. Adrenal glands: Unremarkable. No mass. Kidneys and ureters: Unremarkable. No solid mass. No hydronephrosis. Stomach and bowel: Visualized stomach and intestines are unremarkable. Intraperitoneal space: No free fluid. Arteries: Incidental note made of fluid signal structures in the Kirsten aortic regions which may reflect dilated lymphatics, of incidental note Bones/joints: Unremarkable. Soft tissues: Unremarkable. IMPRESSION: No acute findings Dictated and Authenticated by: Lion Medina MD. Ordering:ANDREAJ Kenneth Rashid MD
== END ==
PROVIDERS: PCP Family Medicine; Visit Provider Family Medicine
DX: G96.191 Perineural cyst (principal); N20.0 Calculus of kidney; R63.4 Abnormal weight loss; R93.5 Abnormal findings on diagnostic imaging of other abdominal regions, including retroperitoneum
CPT/HCPCS: 74181

== ENCOUNTER → 2020-09-10 00:57 | Outpatient (CLI) | payer MEDICARE, SELFPAY ==
--- NOTE | 2020-09-10 13:55 | DI.CT_ITS ---
Exam(s) CT CHEST WO EXAM: CT CHEST WO CLINICAL HISTORY: f/u 7mm pulmonary nodule,r91.1. TECHNIQUE: Multi planar reconstructions were performed. CONTRAST MATERIAL: None COMPARISON: CT CT CHEST LUNG CANCER SCREEN from 04/06/2020 FINDINGS: CHEST: LUNGS: Right apical and sub apical scarring again noted. The size of the previously described new nodule in the right upper lobe is unchanged, measuring 7.5 b y 5.5 cm on today's study. Remains the spiculated.. There are no new additional right lung nodules evident on today's study. No right pleural effusion. In the opposite-left lung there are no new nodules evident. No pleural effusions on either side. MEDIASTINUM: There is no obvious hilar nor mediastinal adenopathy. Visualized thyroid unremarkable.No obvious axillary adenopathy CARDIAC: Heart size is normal. There is no pericardial effusion.Caliber of the thoracic aorta is wit hin normal limits. VISUALIZED UPPER ABDOMEN:Para-aortic density noted which is difficult to assess with respect to abnor mal pathologic density versus unopacified bowel loops. OSSEOUS: No significant osseous lesions.. IMPRESSION: 1. Stable appearance of their previously described new slightly spiculated nodule in the right upper lobe, unchanged from the CT scan of 04/06/2020. Recommend repeat CT scan after appropriate clinical interval. 2. No new pulmonary nodules nor pleural effusions nor intrathoracic adenopathy 3. Abdominal findings as described above which were difficult to assess accurately without oral and I V contrast. RADIATION DOSE DELIVERED: 283.03mGy.cm Total DLP DATA REPOSITORY: All CT scans at this facility are submitted to the National Radiology Data Registry (NRDR) Dose Index Registry (DIR) with the [employer] (ACR). RADIATION OPTIMIZATION: All CT scans at this facility use at least one of these dose optimization te chniques: automated exposure control; mA and/or kV adjustment per patient size (includes targeted exa ms where dose is matched to clinical indication); or iterative reconstruction.
== END ==
PROVIDERS: PCP Family Medicine; Visit Provider Family Medicine
DX: R91.1 Solitary pulmonary nodule (principal)
CPT/HCPCS: 71250

== ENCOUNTER 2020-11-02 20:55 | Outpatient (REF) | payer MEDICARE, SELFPAY ==
[2020-11-04 15:43] LABS: COVID-19 RT-PCR UVMMC Result Negative (Negative)
== END 2020-11-02 20:56 | disposition home or self-care (01) ==
LOC: NCHCN 20:55
PROVIDERS: PCP Family Medicine; Visit Provider Nurse Practitioner
DX: Z20.822 Contact with and (suspected) exposure to COVID-19 (principal)
CPT/HCPCS: U0003

== ENCOUNTER 2021-01-08 14:47 | Outpatient (REF) | payer MEDICARE, SELFPAY ==
[2021-01-09 19:15] LABS: COVID-19 RT-PCR UVMMC Result Positive (Negative)
== END 2021-01-08 14:48 | disposition home or self-care (01) ==
LOC: LBN 14:47
PROVIDERS: PCP Family Medicine; Visit Provider Family Medicine
DX: Z20.822 Contact with and (suspected) exposure to COVID-19 (principal)
CPT/HCPCS: U0003; U0005

== ENCOUNTER 2021-01-11 01:55 | Outpatient (CLI) | payer MEDICARE, SELFPAY ==
[2021-01-11] MEDS: Normal Saline Flush 10 ML SYR IVP (13:00)
[2021-01-11 13:25] VITALS: BP 135/81; PULSE 78; RESP 22; TEMP 39; O2SAT 97
[2021-01-11 13:55] VITALS: BP 133/82; PULSE 81; RESP 20; TEMP 38.4; O2SAT 97
[2021-01-11 14:20] VITALS: BP 134/79; PULSE 77; RESP 20; TEMP 38.2; O2SAT 96
[2021-01-11 14:31] VITALS: BP 150/79; PULSE 84; RESP 24; TEMP 39; O2SAT 84
[2021-01-11 14:40] VITALS: BP 153/86; PULSE 89; RESP 20; TEMP 38.6; O2SAT 95
[2021-01-11] MEDS: Normal Saline 500 ML 30 ML IV (14:48)
== END 2021-01-11 01:56 | disposition home or self-care (01) ==
PROVIDERS: PCP Family Medicine; Visit Provider Family Medicine
DX: U07.1 COVID-19 (principal)
CPT/HCPCS: 96365

== ENCOUNTER 2022-01-20 15:18 | Outpatient (REF) | payer OTHER, SELFPAY ==
[2022-01-20 21:20] LABS: Abs Immature Grans 0.06 10^3/uL (0.0-0.06); Absolute Basophil Count 0.03 10^3/uL (0.0-0.2); Absolute Eosinophil Count 0.03 10^3/uL (0.0-0.7); Absolute Lymphocyte Count 0.89 10^3/uL (1.2-3.4); Basophils % 0.2; Eosinophils % 0.2; HCT 35.5 % (36.0-46.0); HGB 10.6 g/dL (11.2-15.7); Immature Grans % 0.4; Lymphocytes % 6.6; MCH 30.7 pg (27.0-33.0); MCHC 29.9 % (32.0-36.0); MCV 103 fL (80-95); MPV 10.1 fL (8.0-11.0); Monocytes % 7.9; Neutrophils % 84.7; Platelet Count 250 10^3/uL (130-400); RBC 3.45 10^6/uL (3.93-5.22); RDW 11.3 % (11.7-14.6); RDW-SD 42.4 fL; WBC 13.46 10^3/uL (4.4-10.8)
[2022-01-20 21:21] LABS: Absolute Monocyte Count 1.06 10^3/uL (0.1-0.8)
[2022-01-20 21:32] LABS: ALT 20 U/L (14-59); AST 11 U/L (15-37); Albumin 3.3 g/dL (3.4-5.0); Alkaline Phosphatase 94 U/L (46-116); Anion Gap 1.3 mmol/L (3-11); BUN 13 mg/dL (7-18); Bilirubin, Total 0.3 mg/dL (0.2-1.0); CO2 42.7 mmol/L (21.0-32.0); CREATININE 0.4 mg/dL (0.55-1.02); Calcium 9.2 mg/dL (8.5-10.1); Chloride 95 mmol/L (98-107); Estimated GFR 114.65 (mL/min/1.73m2); Glucose 110 mg/dL (74-106); Sodium 139 mmol/L (136-145); Total Protein 6.7 g/dL (6.4-8.2)
[2022-01-22 11:32] LABS: Alpha 1 Antitrypsin,Serum 299 mg/dL (90-200)
== END 2022-01-20 15:19 | disposition home or self-care (01) ==
LOC: LBN 15:18
PROVIDERS: PCP Family Medicine; Visit Provider Family Medicine
DX: R63.4 Abnormal weight loss (principal); R06.02 Shortness of breath; R91.1 Solitary pulmonary nodule; J44.9 Chronic obstructive pulmonary disease, unspecified; R50.9 Fever, unspecified
CPT/HCPCS: 80053; 82103; 84443; 85025

== ENCOUNTER 2022-01-22 09:41 | Outpatient (CLI) | payer OTHER, SELFPAY ==
--- NOTE | 2022-01-22 06:45 | DI.CT_ITS ---
Exam(s) CT CHEST W EXAM: CT CHEST W CLINICAL HISTORY: fever/abnl wt loss,pulmonary nodule,copd,r91.1,r63.4 TECHNIQUE: Imaging Protocol: Axial computed tomography images with coronal and sagittal reformatted images were created and reviewed CONTRAST MATERIAL: Intravenous: Omnipaque 350Contrast volume:70 mL. COMPARISON: CT CT CHEST WO from 09/10/2020 FINDINGS: Tracheobronchial tree: Patent where visualized. Pulmonary parenchyma: There has been no change in alignment of the 7 x 5 mm nodule in the right upper lobe. There are scattered small in infiltrate seen in the lungs. The findings are most prominent i n the lateral right upper lobe the right middle lobe in the left upper lobe. An infectious or inflam matory etiology should be considered. There is scarring again seen in the right apex. Emphysematous changes are present in the lungs. Mediastinum and Irene: There are mildly enlarged lymph nodes in the mediastinum which are likely react dayna. The esophagus is unremarkable. Thyroid gland: Unremarkable. Pleura: No effusion or pneumothorax. Heart: The heart is not dilated. No coronary artery calcifications are seen. No pericardial effusion. Aorta: Thoracic aorta non-dilated. Atherosclerosis is present. Pulmonary arteries: The pulmonary arteries are inadequately opacified for evaluation of pulmonary emb jairo. Upper abdomen: Unremarkable. Lymph nodes: Within normal limits. Bones: Within normal limits for the patient's age. Soft tissues: Unremarkable. IMPRESSION: 1. Stable right upper lobe pulmonary nodule. 2. Interval development of a multifocal infiltrate. Infectious/inflammatory etiology should be consi dered. 3. Emphysematous changes are present in the lungs. RADIATION DOSE DELIVERED: 296.2mGy.cm Total DLP DATA REPOSITORY: All CT scans at this facility are submitted to the National Radiology Data Registry (NRDR) Dose Index Registry (DIR) with the [employer] (ACR). RADIATION OPTIMIZATION: All CT scans at this facility use at least one of these dose optimization te chniques: automated exposure control; mA and/or kV adjustment per patient size (includes targeted exa ms where dose is matched to clinical indication); or iterative reconstruction.
[2022-01-22] MEDS: Omnipaque 350 MG/ML 500 ML BTL-Imaging package IJ (10:29)
[2022-01-22] MEDS: Normal Saline - Diluent 50 ML VIAL IJ (10:30)
== END 2022-01-22 10:01 ==
LOC: DI 09:42
PROVIDERS: PCP Family Medicine; Visit Provider Family Medicine
DX: R91.1 Solitary pulmonary nodule (principal); R91.8 Other nonspecific abnormal finding of lung field; J43.8 Other emphysema; R63.4 Abnormal weight loss; R50.9 Fever, unspecified
CPT/HCPCS: 71260

== ENCOUNTER 2022-02-13 12:06 | Outpatient (REF) | payer OTHER, SELFPAY ==
--- NOTE | 2022-02-13 11:00 | PAPFT_PTH ---
PATIENT: AmberMay Kvng LOC: [facility] U#:[id number] AGE/SX: 56/F ROOM: RE02/13/[address]: Gay Cooper MD, [place] : 1965 BED: DIS: 02/13/2022 SPEC #: [id number] RECD: 02/14/22 12:54 STATUS: SHEREEN REQ #: [id number] MARILU: 02/13/22 11:[address]: Gay Cooper DEPT: [facility] Cytology RECD BY: Jacquelyn Jacome Tissues: 1 - CX/ENDOCX FOR PAP SMEARS Procedures: PAP THIN PREP/UVM Screening HPV DNA PROBE Comments: [id number]
== END 2022-02-13 12:07 | disposition home or self-care (01) ==
LOC: LBN 12:06
PROVIDERS: PCP Family Medicine; Visit Provider Family Medicine
DX: Z11.51 Encounter for screening for human papillomavirus (HPV); Z01.419 Encounter for gynecological examination (general) (routine) without abnormal findings
CPT/HCPCS: 88142; 87624

== ENCOUNTER 2022-05-13 14:11 | Outpatient (REF) | payer OTHER, SELFPAY ==
[2022-05-13 12:38] LABS: Bilirubin Negative (Negative); Blood Trace-lysed (Negative); Clarity Clear (Clear); Glucose Negative (Negative); Ketones Negative (Negative); Leukocyte Esterase Negative (Negative); Nitrite Negative (Negative); Urobilinogen 0.2 mg/dL (Up to 0.2)
[2022-05-13 13:02] LABS: Bacteria Rare HPF (Negative); C & S Indicated? No; Casts Negative LPF (Negative); Crystals Negative HPF (Negative); Epithelial Cells Rare HPF (Negative); Mucus Negative (Negative); WBC 0-2 HPF (0-5)
== END 2022-05-13 14:12 | disposition home or self-care (01) ==
LOC: LBN 14:11
PROVIDERS: PCP Family Medicine; Visit Provider Family Medicine
DX: R35.0 Frequency of micturition (principal)
CPT/HCPCS: 81003; 81015

== ENCOUNTER 2022-05-27 13:01 | Outpatient (CLI) | payer OTHER, SELFPAY ==
--- NOTE | 2022-05-27 10:26 | DI.RAD_ITS ---
Exam(s) XR CHEST 2V PA LATERAL EXAM: XR CHEST 2V PA LATERAL CLINICAL HISTORY: pneumonia, severe copd J18.9 PNEUMONIA TECHNIQUE: 2D digital imaging was performed of the chest. Two images were obtained. PA and lateral views were obtained. COMPARISON: CR,XR XR CHEST 2V PA LATERAL from 12/27/2018 CR,XR XR PORTABLE CHEST AP from 11/07/2019 FINDINGS: MEDIASTINUM: Normal. HEART: Normal. PULMONARY VASCULATURE: Normal. LUNGS: The lungs are hyperinflated suggesting underlying COPD. No focal consolidations are seen. PLEURAL SPACE: No pleural effusion or pneumothorax. BONE:Within normal limits for the patient's age. OTHER FINDINGS:Normal. IMPRESSION: 1. COPD. 2. No acute pulmonary process. DATA REPOSITORY: RADIATION DOSE DELIVERED:
== END 2022-05-27 13:21 ==
LOC: DI 13:01
PROVIDERS: PCP Family Medicine; Visit Provider Family Medicine
DX: J18.9 Pneumonia, unspecified organism (principal)
CPT/HCPCS: 71046

== ENCOUNTER 2022-07-18 10:18 | Emergency (ER) | payer OTHER, SELFPAY ==
[2022-07-18 10:25] VITALS: BP 131/89; PULSE 80; RESP 22; O2SAT 92
--- NOTE | 2022-07-18 10:30 | DI.RAD_ITS ---
Exam(s) XR CHEST 2V PA LATERAL EXAM: XR CHEST 2V PA LATERAL CLINICAL HISTORY: cough, copd TECHNIQUE: 2D digital imaging was performed of the chest. Two images were obtained. PA and lateral views were obtained. COMPARISON: CR XR CHEST 2V PA LATERAL from 05/27/2022 FINDINGS: MEDIASTINUM: Normal. HEART: Normal. PULMONARY VASCULATURE: Normal. LUNGS: The lungs are hyperinflated consistent with underlying COPD. No focal consolidating infiltrat es are present. PLEURAL SPACE: No pleural effusion or pneumothorax. BONE:Within normal limits for the patient's age. OTHER FINDINGS:Normal. IMPRESSION: No acute pulmonary findings. DATA REPOSITORY: RADIATION DOSE DELIVERED:
[2022-07-18] MEDS: predniSONE 20 MG TAB 40 MG PO (10:44)
--- NOTE | 2022-07-18 11:14 | ED.GENADUL_ITS ---
Discharge Plan Disposition Patient Disposition: Home Discharge Details Clinical Impression: COPD with acute exacerbation Primary Care Provider: Gay Cooper ED Provider: Jacquelyn Sow Home Meds and New Rx's Prescriptions: New doxycycline hyclate 100 mg capsule 100 mg PO BID Qty: 14 0RF prednisone 10 mg tablet 10 mg PO DIRECTED Qty: 9 0RF Rx Instructions: take 4 tabs for 2 days followed by 3 tabs for 2 days followed by 2 tabs for 1 day followed by 1 tab for 1 day Continued ipratropium-albuterol 0.5 mg-3 mg(2.5 mg base)/3 mL solution for nebulization 3 ml inhalation QID PRN (Reason: wheezing) Qty: 180 4RF Rx Instructions: severe copd albuterol sulfate [Ventolin HFA] 90 mcg/actuation HFA aerosol inhaler 2 puff inhalation Q6H PRN (Reason: shortness of breath or wheezing) Qty: 25.5 4RF Probiotic Acidophilus 1.5 mg (250 million cell) capsule 1,000 mmu cells PO DAILY fluticasone propion-salmeterol [Advair HFA] 115-21 mcg/actuation HFA aerosol inhaler 2 puff inhalation BID Qty: 12 12RF Spiriva Respimat 2.5 mcg/actuation mist 2 puff inhalation DAILY Qty: 4 12RF acetaminophen [Tylenol Arthritis Pain] 650 mg tablet extended release 650 mg PO Q8H prednisone 20 mg tablet 40 mg PO DAILY Qty: 10 0RF azithromycin 250 mg tablet See Rx Instructions PO .COMPLEX Qty: 6 0RF Rx Instructions: For 250 mg dose pack: take 500 mg today (day 1), then 250 mg for 4 days (days 2-5) PO Atrovent HFA 17 mcg/actuation HFA aerosol inhaler 1 puff inhalation QID Qty: 12.9 12RF tolterodine [Detrol] 2 mg tablet 2 mg PO DAILY Qty: 30 5RF Discharge Instructions Instructions: COPD (Chronic Obstructive Pulmonary Disease) (ED) Additional Instructions: Take the prednisone as prescribed, you received your to steroid today Take the antibiotic as prescribed Continue with your nebs as prescribed Please let Dr. Chun your facility practice specialist know that you are having an exacerbation and to be scheduled for outpatient reassessment with primary care physician or pulmonology at your discretion Return earlier should you have new or worsening complaints, or persistent symptoms despite intervention Referrals: Gay Cooper MD, [place] [Primary Care Provider] - Mariama Menendez MD [ [facility] STAFF PHYSICIAN] - Medical Decision Making 57-year-old female history of end-stage COPD, oxygen dependency presents with report of symptoms consistent with COPD exacerbation No acute distress Chest x-ray ordered without evidence of obvious infiltrate or acute intrathoracic process per radiology interpretation my review Started with prednisone taper taper, will start on doxycycline for COPD exacerbation Low suspicion clinically for PE, no tachycardia or acute hypoxia, temperature 97 to Request discharge home at this time, low suspicion for cardiac/volume overload because of symptoms clinically Discharged home in stable condition with stable vitals, ambulatory with steady gait in no acute hypoxia on baseline oxygen Need for close outpatient reassessment Return precautions reviewed and patient expressed understanding, discharged home in stable condition with stable HPI General Date/Time Provider Initiated Documentation: 07/18/22 10:29 . HPI Narrative: This patient patient with history of COPD, end-stage, oxygen dependent presents with report of worsening shortness of breath over the course of the past week. Feels like COPD exacerbation for patient. Denies any fever or chills. Denies tobacco use. Denies any chest pain or associated fever. Denies increased sputum production. Denies any calf pain or swelling, recent flights, surgeries, long drives, history of coagulopathy. Related Data Home Medications Medication Instructions Recorded Confirmed Lactobacillus acidophilus 1.5 mg 1,000 mmu cells PO DAILY 06/14/21 07/18/22 (250 million cell) capsule (Probiotic Acidophilus) albuterol sulfate 90 mcg/actuation 2 puff inhalation Q6H PRN 02/13/22 07/18/22 aerosol inhaler (Ventolin HFA) shortness of breath or wheezing #25.5 grams ipratropium 0.5 mg-albuterol 3 mg 3 ml inhalation QID PRN wheezing 02/13/22 07/18/22 (2.5 mg base)/3 mL nebulization #180 mL soln fluticasone propionate 115 2 puff inhalation BID #12 grams 02/24/22 07/18/22 mcg-salmeterol 21 mcg/actuation HFA inhaler (Advair HFA) tiotropium bromide 2.5 2 puff inhalation DAILY #4 grams 02/24/22 07/18/22 mcg/actuation mist for inhalation (Spiriva Respimat) ipratropium bromide 17 1 puff inhalation QID #12.9 grams 03/06/22 07/18/22 mcg/actuation HFA aerosol inhaler (Atrovent HFA) acetaminophen 650 mg 650 mg PO Q8H 05/27/22 07/18/22 tablet,extended release (Tylenol Arthritis Pain) azithromycin 250 mg tablet See Rx Instructions PO .COMPLEX #6 05/27/22 07/18/22 tabs prednisone 20 mg tablet 40 mg PO DAILY #10 tabs 05/27/22 07/18/22 tolterodine 2 mg tablet (Detrol) 2 mg PO DAILY #30 tabs 06/24/22 07/18/22 doxycycline hyclate 100 mg capsule 100 mg PO BID #14 caps 07/18/22 prednisone 10 mg tablet 10 mg PO DIRECTED #9 tabs 07/18/22 Previous Rx's Medication Instructions Recorded albuterol sulfate 90 mcg/actuation 2 puff inhalation Q6H PRN 02/13/22 aerosol inhaler (Ventolin HFA) shortness of breath or wheezing #25.5 grams ipratropium 0.5 mg-albuterol 3 mg 3 ml inhalation QID PRN wheezing 02/13/22 (2.5 mg base)/3 mL nebulization #180 mL soln fluticasone propionate 115 2 puff inhalation BID #12 grams 02/24/22 mcg-salmeterol 21 mcg/actuation HFA inhaler (Advair HFA) tiotropium bromide 2.5 2 puff inhalation DAILY #4 grams 02/24/22 mcg/actuation mist for inhalation (Spiriva Respimat) ipratropium bromide 17 1 puff inhalation QID #12.9 grams 03/06/22 mcg/actuation HFA aerosol inhaler (Atrovent HFA) azithromycin 250 mg tablet See Rx Instructions PO .COMPLEX #6 05/27/22 tabs prednisone 20 mg tablet 40 mg PO DAILY #10 tabs 05/27/22 tolterodine 2 mg tablet (Detrol) 2 mg PO DAILY #30 tabs 06/24/22 doxycycline hyclate 100 mg capsule 100 mg PO BID #14 caps 07/18/22 prednisone 10 mg tablet 10 mg PO DIRECTED #9 tabs 07/18/22 Allergies Allergy/AdvReac Type Severity Reaction Status Date / Time venlafaxine Allergy Severe EYES Verified 05/27/22 14:10 SWELL; SHAKINESS benzonatate Allergy Intermediate FACIAL Verified 05/27/22 14:10 SWELLING meloxicam Allergy Intermediate ITCHING Verified 05/27/22 14:10 diclofenac Allergy Unknown Verified 05/27/22 14:10 misoprostol Allergy Unknown Verified 05/27/22 14:10 General Stated Complaint: SOB ANDREA: 3 PFSH All Active Problems (Updated 07/18/22 @ 11:20 by ANGELICA Turpin) Respiratory failure with hypoxia (Acute) MERYL (obstructive sleep apnea) (Chronic) Edema (Acute) Pneumonia (Acute) Weight loss (Acute) Pulmonary nodule (Acute) Fever (Acute) COPD (chronic obstructive pulmonary disease) (Chronic) URI (upper respiratory infection) (Acute) Tarlov cyst (Acute) sacral area Abdominal pain (Acute) Weight loss (Acute) Dilated bile duct (Acute) RLQ abdominal mass (Acute) RLQ abdominal pain (Acute) Pulmonary nodule seen on imaging study (Acute) Abdominal pain (Acute) Shoulder pain, left (Acute) COVID-19 ruled out by laboratory testing (Acute) Chronic respiratory failure with hypoxia (Acute) Discharge planning issues (Acute) DVT prophylaxis (Acute) Sepsis (Acute) Hypoxia (Acute) Acute exacerbation of chronic obstructive pulmonary disease (COPD) (Acute) Pneumonia (Acute) Tongue coating (Acute) Cough (Acute) Medication care plan discussed with patient (Acute) Tinnitus (Acute) Incontinence (Acute) Elevated blood pressure reading (Acute) COPD with acute exacerbation (Acute) Low back pain (Chronic) SAcraliliac pain. MRI negative for lumbar pathology; T11,T12 left disc herniation. Has been to spine clinic; does get comfort from chiropractic Hiatal hernia with GERD (Chronic 04/27/17) Gastric motor function disorder (Chronic) Chronic obstructive lung disease, type A (Chronic) continues to smoke Medical History Abnormal mammography Acute respiratory failure with hypoxia Carpal tunnel syndrome of right wrist Chronic obstructive lung disease, type A continues to smoke Community acquired pneumonia Depression Dysfunctional uterine bleeding Dyspepsia Gastric motor function disorder Hiatal hernia with GERD (04/27/17) Hypoxemia Influenza A Low back pain SAcraliliac pain. MRI negative for lumbar pathology; T11,T12 left disc herniation. Has been to spine clinic; does get comfort from chiropractic Mammogram abnormal cat 3; did not return for F/U Pressure sore on buttocks Sepsis Smoker quit in 2003; restarted; down to 3/day 11/08/18 - has not smoked for 5 days while ill with URI Tinnitus Surgical History Colonoscopy - MAC (04/27/17) EGD - MAC (04/27/17) foot surgery (07/11/11) Ligation of fallopian tube Open Carpal Tunnel release (02/15/16) right S/P foot surgery 07/11/11 Family History (Updated 02/14/22 @ 14:53 by Linda Cooney) Mother , age 73 Diabetes Heart disease Hyperlipidemia Sepsis Asthma Father , age 58 Lymph node cancer Sister Lymph node cancer Diabetes Hyperlipidemia Sister , age 56 Chronic obstructive lung disease Asthma Brother No problems noted. Brother No problems noted. Brother No problems noted. Maternal Grandfather Stroke Paternal Grandfather Pulmonary tuberculosis Maternal Grandmother Heart disease Emphysema lung Asthma Paternal Grandmother Cancer Spider Son No problems noted. Daughter Substance abuse Depression Cervical cancer Social History (Updated 02/14/22 @ 16:02 by Linda Cooney) Smoking/Tobacco Use Status: Former Tobacco Use Tobacco: How many years used: 30 Second Hand Exposure: Yes Smoking risk assessment performed?: Yes Alcohol Intake: current Alcohol Intake frequency: a few times a month Alcohol type: beer Drug use: Never Substance use type: does not use Caregiver/Support person: No Household members: spouse Housing: house Communication Needs: None Do you need help understanding health information?: Rarely current occupation: [employer] Pets and animals: Yes (4 dogs, cat) Pets and animals: cat(s) and dog(s) Sexually active: No Do you think of yourself as: straight/heterosexual Current gender identity: female What is your relationship status?: How often do you talk on the phone with friends or family?: decline to answer How often do you get together with friends or relatives?: decline to answer How often do you attend mandaeism or gnosticist services?: decline to answer Do you belong to any clubs or organized social groups?: no Panel score (0-1 are the most socially isolated patients): 1 What type of physical activity do you participate in: decline to answer Duration: decline to answer Frequency: decline to answer Alley/Sikhism: No preference Special alley needs: No Seatbelt use: always Helmet use: Yes Helmet use: always Drive intox or ride w/intox service car driver: No Do you feel safe at home: Yes Do you feel safe in your relationship?: Yes Course Vital Signs Vital signs: Vital Signs Pulse 80 07/18/22 10:25 Respiratory Rate 22 07/18/22 10:25 Blood Pressure 131/89 07/18/22 10:25 Pulse Oximetry 92 07/18/22 10:25 Temperature Source Oral 07/18/22 10:25 Pulse 80 07/18/22 10:25 Respiratory Rate 22 07/18/22 10:25 Respiratory Effort Short of Breath 07/18/22 10:47 Respiratory Depth Shallow 07/18/22 10:47 Respiratory Pattern Normal 07/18/22 10:47 Blood Pressure 131/89 07/18/22 10:25 Pulse Oximetry 92 07/18/22 10:25 Oxygen Delivery Method Nasal Cannula 07/18/22 10:25 Oxygen Flow Rate 2 07/18/22 10:25 Pain Level 0 07/18/22 10:25
[2022-07-18 11:26] VITALS: PULSE 85; RESP 20; O2SAT 92
== END 2022-07-18 15:43 | disposition home or self-care (01) ==
PROVIDERS: Emergency Provider Physician Assistant; PCP Family Medicine
DX: J44.1 Chronic obstructive pulmonary disease with (acute) exacerbation (principal); R06.02 Shortness of breath; Z99.81 Dependence on supplemental oxygen
CPT/HCPCS: 99283; 71046; 99284; J7512

== ENCOUNTER 2022-11-11 11:16 | Outpatient (CLI) | payer OTHER, SELFPAY ==
[2022-11-11 12:15] LABS: HCT 36.4 % (36.0-46.0); HGB 11.3 g/dL (11.2-15.7); MCH 29.7 pg (27.0-33.0); MCV 96 fL (80-95); MPV 9.3 fL (8.0-11.0); Platelet Count 279 10^3/uL (130-400); RDW 12.2 % (11.7-14.6); RDW-SD 42.8 fL; WBC 6.07 10^3/uL (4.4-10.8)
[2022-11-11 12:35] LABS: TSH (W/Ref FT4) 2.24 uIU/mL (0.36-3.74)
[2022-11-11 12:48] LABS: Vitamin D 25 Total 19.6 ng/mL (30-100)
== END 2022-11-11 11:17 | disposition home or self-care (01) ==
LOC: LOS 11:16
PROVIDERS: PCP Family Medicine; Referring Provider Family Medicine; Visit Provider Family Medicine
DX: E03.9 Hypothyroidism, unspecified (principal); K83.8 Other specified diseases of biliary tract
CPT/HCPCS: 36415; 82306; 85027; 84443

== ENCOUNTER 2023-11-10 10:02 | Outpatient (CLI) | payer OTHER, SELFPAY ==
[2023-11-10 12:26] LABS: HGB 10.8 g/dL (11.2-15.7); MCH 30.1 pg (27.0-33.0); MCV 100 fL (80-95); MPV 9.5 fL (8.0-11.0); Platelet Count 297 10^3/uL (130-400); RBC 3.59 10^6/uL (3.93-5.22); RDW 12.7 % (11.7-14.6); RDW-SD 47.6 fL; WBC 9.63 10^3/uL (4.4-10.8)
[2023-11-10 13:11] LABS: ALT 37 U/L (14-59); AST 21 U/L (15-37); Alkaline Phosphatase 59 U/L (46-116); Anion Gap 5.3 mmol/L (3-11); BUN 15 mg/dL (7-18); Bilirubin, Total 0.19 mg/dL (0.2-1.0); CO2 35.7 mmol/L (21.0-32.0); CREATININE 0.5 mg/dL (0.55-1.02); Calcium 9.5 mg/dL (8.5-10.1); Chloride 101 mmol/L (98-107); Estimated GFR 107.31 (mL/min/1.73m2); Glucose 99 mg/dL (74-106); Potassium 4.1 mmol/L (3.5-5.1); Sodium 142 mmol/L (136-145); Total Protein 7.3 g/dL (6.4-8.2)
[2023-11-11 18:47] LABS: Lab Add On Test DONE
[2023-11-11 19:37] LABS: Vitamin B12 507 pg/mL (193-986)
[2023-11-12 19:28] LABS: Folate 23.5 ng/mL (See Note)
== END 2023-11-10 10:03 | disposition home or self-care (01) ==
LOC: LOS 10:02
PROVIDERS: PCP Family Medicine; Referring Provider Family Medicine; Visit Provider Family Medicine
DX: I10 Essential (primary) hypertension (principal); R06.02 Shortness of breath; E55.9 Vitamin D deficiency, unspecified; Z23 Encounter for immunization
CPT/HCPCS: 36415; 80053; 82306; 85027; 82607; 82746

== ENCOUNTER 2023-11-19 01:07 | Outpatient (CLI) | payer OTHER, SELFPAY ==
--- NOTE | 2023-11-19 12:11 | DI.CTLCSR_ITS ---
Exam(s) CT CHEST LUNG CANCER SCREEN EXAM: CT CHEST LUNG CANCER SCREEN CLINICAL HISTORY: Screening for lung cancer,former smoker, [id number]. TECHNIQUE: Imaging Protocol: Low Dose Technique CONTRAST MATERIAL: None COMPARISON: CT CT CHEST W from 01/22/2022 FINDINGS: CHEST: LUNGS: Size of right upper lobe nodule is unchanged but has acquired some calcification indicated is probably benign granuloma.. No new right lung findings. No new significant left lung findings. Pre viously described bilateral patchy infiltrates have resolved. There are no pleural effusions. No si gnificant findings in the trachea and mainstem bronchi. MEDIASTINUM: There is no obvious hilar nor mediastinal adenopathy. CARDIAC: Heart size is normal. There is no pericardial effusion.Caliber of the thoracic aorta is wit hin normal limits. OTHER: OSSEOUS: No significant osseous lesions.No fractures.. IMPRESSION: 1. Stable benign-appearing right upper lobe nodule as described above. 2. Previously present patchy bilateral infiltrates seen on CT scan of January 2022 are resolved. Th ere is no intrathoracic adenopathy and there are no pleural effusions. 3. Lung RADS Cat 2 - Benign Appearance / Behavior: Nodules with a very low likelihood of becoming a c linically active cancer due to size or lack of growth Lung-RADS 1.0 CATEGORIES: Category 0 - Prior chest CT exam(s) being located for comparison. Category 1 - Annual screening in 12 months. No nodules or definitely benign nodules. Category 2 - Annual screening in 12 months. Benign appearance. Nodules with low likelihood of becomin g active cancer. Category 3 - 6-month follow-up. Probably benign. Short-term follow-up suggested. Nodules with low lik elihood of becoming active cancer. Category 4A - 3-month follow-up and CT/PET if >8 mm in size. Suspicious finding. Findings which requi re additional testing. Category 4B - Findings which require additional testing and tissue sampling. Category 4X - Category 3 or 4 nodules with additional features or imaging findings that increases the suspicion of malignancy. Modifier S- Potentially clinically significant findings (non lung cancer) RADIATION DOSE DELIVERED: 20.34mGy.cm Total DLP DATA REPOSITORY: All CT scans at this facility are submitted to the National Radiology Data Registry (NRDR) Dose Index Registry (DIR) with the [employer] (ACR). RADIATION OPTIMIZATION: All CT scans at this facility use at least one of these dose optimization te chniques: automated exposure control; mA and/or kV adjustment per patient size (includes targeted exa ms where dose is matched to clinical indication); or iterative reconstruction.
== END 2023-11-19 01:27 ==
LOC: DI 01:07
PROVIDERS: PCP Family Medicine; Visit Provider Family Medicine
DX: Z12.2 Encounter for screening for malignant neoplasm of respiratory organs (principal); Z87.891 Personal history of nicotine dependence; R91.1 Solitary pulmonary nodule
CPT/HCPCS: 71271

== ENCOUNTER → 2023-12-30 14:44 | Outpatient (BNVA) | payer OTHER, SELFPAY | PROVIDERS: PCP Family Medicine; Referring Provider Family Medicine; Visit Provider Physician Assistant Surgical | DX: J44.9 Chronic obstructive pulmonary disease, unspecified (principal); R91.1 Solitary pulmonary nodule; G47.33 Obstructive sleep apnea (adult) (pediatric); J96.91 Respiratory failure, unspecified with hypoxia | CPT/HCPCS: 99214 ==

== ENCOUNTER 2024-12-06 10:42 | Outpatient (CLI) | payer MEDICARE, SELFPAY ==
[2024-12-06 14:18] LABS: Abs Immature Grans 0.02 10^3/uL (0.0-0.06); HCT 35.1 % (36.0-46.0); HGB 10.8 g/dL (11.2-15.7); Immature Grans % 0.2 %; MCH 30.0 pg (27.0-33.0); MCHC 30.8 % (32.0-36.0); MCV 98 fL (80-95); MPV 9.9 fL (8.0-11.0); Platelet Count 267 10^3/uL (130-400); RBC 3.60 10^6/uL (3.93-5.22); RDW 11.8 % (11.7-14.6); RDW-SD 42.5 fL; WBC 9.00 10^3/uL (4.4-10.8)
[2024-12-06 14:33] LABS: Iron 74 ug/dL (50-170)
[2024-12-06 14:55] LABS: ALT 32 U/L (14-59); AST 17 U/L (15-37); Albumin 4.0 g/dL (3.4-5.0); Alkaline Phosphatase 58 U/L (46-116); Anion Gap 3.3 mmol/L (3-11); BUN 14 mg/dL (7-18); Bilirubin, Total 0.3 mg/dL (0.2-1.0); CO2 39.7 mmol/L (21.0-32.0); Calcium 9.5 mg/dL (8.5-10.1); Chloride 96 mmol/L (98-107); Estimated GFR 106.64 (mL/min/1.73m2); Ferritin 61 ng/mL (8-252); Glucose 103 mg/dL (74-106); Potassium 3.9 mmol/L (3.5-5.1); Sodium 139 mmol/L (136-145); TSH (W/Ref FT4) 1.91 uIU/mL (0.36-3.74); Total Protein 7.5 g/dL (6.4-8.2); Vitamin B12 723 pg/mL (193-986); Vitamin D 25 Total 29 ng/mL (30-100)
[2024-12-07 11:16] LABS: Hepatitis C Ab w Rflx HCV PCR Negative (Negative)
== END 2024-12-06 10:43 | disposition home or self-care (01) ==
LOC: LOS 10:43
PROVIDERS: PCP Family Medicine; Visit Provider Family Medicine
DX: R06.02 Shortness of breath (principal); I10 Essential (primary) hypertension; E55.9 Vitamin D deficiency, unspecified; E53.8 Deficiency of other specified B group vitamins; D64.9 Anemia, unspecified; J44.9 Chronic obstructive pulmonary disease, unspecified; E03.9 Hypothyroidism, unspecified; Z11.59 Encounter for screening for other viral diseases
CPT/HCPCS: 36415; 80053; 82306; 86803; 82607; 82728; 83540; 84443; 85025

== ENCOUNTER → 2024-12-26 02:00 | Outpatient (CLI) | payer MEDICARE, SELFPAY ==
--- NOTE | 2024-12-26 08:30 | DI.US_ITS ---
APPROVED REPORT EXAM: Comprehensive 2D, Doppler, and color-flow Echocardiogram Patient Location: Out-Patient Cosmetician Apprentice: Ajay Everett RDCS (AE) Indications: SOB, COPD Other Information Study Quality: Fair. Technically limited study due to lung disease, body habitus. Conclusion Normal left ventricular wall thickness and chamber size. Ejection fraction is 55 to 60%. Wall motion is normal Normal right ventricular size and function Both atria are normal in size There are no structural valvular abnormalities Mild mitral and tricuspid regurgitation Estimated right ventricular systolic pressure is 27 mmHg Wall motion Left Ventricle The left ventricle is normal size. The left ventricular systolic function is normal. The left ventricular ejection fraction is within the normal range. There is normal left ventricular wall thickness. There is normal LV segmental wall motion. There is no ventricular septal defect visualized. LVEF is 55-60%. Right Ventricle The right ventricle is normal size. The right ventricular systolic function is normal. Atria The left atrium size is normal. The right atrium size is normal. The interatrial septum is intact with no evidence for an atrial septal defect. Aortic Valve The aortic valve is normal in structure. Aortic valve is trileaflet. There is no aortic valvular stenosis. No aortic regurgitation is present. Mitral Valve The mitral valve is normal in structure. No evidence of mitral valve stenosis. Mild mitral regurgitation. Tricuspid Valve The tricuspid valve is normal in structure. There is no tricuspid valve stenosis. Mild tricuspid regurgitation. The RVSP is 27.1 mmHg. Pulmonic Valve The pulmonary valve is normal in structure. There is no pulmonic valvular stenosis. There is no pulmonic valvular regurgitation. Great Vessels The aortic root is normal in size. Ascending aorta is not well visualized. IVC is normal in size and collapses >50% with inspiration. Pericardium There is no pericardial effusion. 2D Dimensions IVSD d PLAX 0.60 cm F: 0.6-1.0 Ao Root d 2.38 cm F: 2.7 - 3.3 LVPW d PLAX 0.61 cm F: 0.6 - 1.0 LVID d PLAX 5.67 cm F: 3.8 - 5.2 LVDs 3.84 cm F: 2.2 - 3.5 LV EF Teichholz 59.9 % FS 32.33 % LV EDV (Teich) 158.2 mL LV ESV (Teich) 63.4 mL Stroke Vol Index (Teich) 61.15 M-Mode TAPSE 3.23 cm (M/F) >1.7 Auto EF LV EDV A4C 82.9 mL LV EDV A2C 102.4 mL LV EDV BP 91.6 mL LV ESV A4C 35.5 mL LV ESV A2C 42.9 mL LV ESV BP 40.0 mL LVEF(%) A4C 57.2 % LVEF(%) A2C 58.1 % LVEF(%) BP 56.4 % LV SV A4C 47.4 ml LV SV A2C 59.5 ml LV SV BP 51.7 ml LV CO A4C 4.1 L/min LV CO A2C 4.7 L/min LV CO BP 4.4 L/min HR A4C 85.52 BPM HR A2C 78.60 BPM LV EDV Index (BP) LA Volume LA Length A4C 4.4 cm LA Length A2C 4.2 cm LA Area A4C s 13.02 cm2 LA Area A2C s 10.32 cm2 LA Vol A4C A-L 32.75 mL LA Vol A2C A-L 21.79 mL LA Vol Biplane A-L 27.5 mL LA Vol/BSA A4C A-L LA Vol/BSA A2C A-L LA Vol/BSA BP A-L 17.7 mL/m2 LA Vol A4C MOD 30.7 mL LA Vol A2C MOD 20.7 mL LA Vol BP MOD 25.8 mL RA Volume RA Area A4C 7.0 cm2 RA ESV A4C (A-L) 11.3mL RA Vol/BSA A4C A-L RA Length A4C 3.6 cm RA ESV A4C (MOD) 11.0mL LV Diastology MV E' medial 0.101 (>0.07 m/s) MV E Vmax 0.87 (0.4-1.3 m/s) MV E/E' MED 8.66 (<14) MV A Vmax 0.70 (0.4-1.3 m/s) MV E' lateral 0.142 (>0.1 m/s) E/A Ratio 1.2 MV E/E' LAT 6.14 (<14) MV E' Average 0.122 m/s MV E/E'(average) 7.18 Aortic Valve AoV Vmax 1.56 m/s LVOT Vmax 1.40 m/s AoV Peak Grad 9.8 mmHg LVOT Peak Grad 7.8 mmHg AoV Area (Vmax) 2.30 cm2 LVOT VTI 0.283 m AoV VTI 0.297 m LVOT Mean Grad 3.5 mmHg AoV Mean Joshua. 0.98 m/s LVOT SV 72.70 mL AoV Mean Grad 4.5 mmHg LVOT Diam s 1.80 cm AoV Area (VTI) 2.45 cm2 AV Regurg Peak Gr. 9.76 mmHg Velocity Ratio 0.90 Mitral Valve MV DT 164 (160-240 msec) Pulmonary Valve PV Vmax 0.83 (0.5-1.5 m/s) RVOT Vmax 0.63 m/s PV Peak Grad 2.8 mmHg RVOT Peak Gr. 1.6 mmHg PV Mean Joshua 0.58 m/s RVOT VTI 0.135 m PV Mean Grad 1.5 mmHg RVOT Mean Gr. 0.9 mmHg Tricuspid Valve RA Pressure 3.00 mmHg TR Vmax 2.45 m/s TR Peak Grad 24.1 mmHg RVSP (TR) 27.1 mmHg
== END ==
LOC: DI 02:00
PROVIDERS: PCP Family Medicine; Visit Provider Family Medicine
DX: R06.02 Shortness of breath (principal); I08.1 Rheumatic disorders of both mitral and tricuspid valves
CPT/HCPCS: 93306

== ENCOUNTER 2024-12-27 03:19 | Outpatient (CLI) | payer MEDICARE, SELFPAY ==
[2024-12-27] MEDS: Inhaler, Assist Device 1 EACH MC (16:03)
[2024-12-27] MEDS: Levalbuterol HFA 15 GM INH 4 PUFF IH (16:04)
--- NOTE | 2024-12-29 08:30 | W.PFT ---
Date of service: 12/27/24 Time of Service: 14:51 Pulmonary Function Test Result Indications: COPD Impression 1. Good patient effort was noted. ATS standards for reproducibility were met. 2. Spirometry showed very severe obstructive lung disease with an FEV1 of 18% (0.37 L) 3. Following the administration of a bronchodilator there was not a significant response 4. TLC and RV were elevated, consistent with air trapping 5. 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
== END 2024-12-27 03:20 | disposition home or self-care (01) ==
LOC: RT 03:19
PROVIDERS: PCP Family Medicine; Visit Provider Family Medicine
DX: J44.89 Other specified chronic obstructive pulmonary disease (principal)
CPT/HCPCS: 94060; 94726; 94729

== ENCOUNTER → 2024-12-28 13:01 | Outpatient (BNVA) | payer MEDICARE, SELFPAY | PROVIDERS: PCP Family Medicine; Referring Provider Family Medicine; Visit Provider Physician Assistant Surgical | DX: J44.9 Chronic obstructive pulmonary disease, unspecified (principal); G47.33 Obstructive sleep apnea (adult) (pediatric); J96.11 Chronic respiratory failure with hypoxia; J96.12 Chronic respiratory failure with hypercapnia; R91.1 Solitary pulmonary nodule; Z87.891 Personal history of nicotine dependence | CPT/HCPCS: 99214; G0296 ==

== ENCOUNTER 2024-12-28 15:45 | Outpatient (REF) | payer MEDICARE, SELFPAY ==
[2024-12-28 15:02] LABS: BE 16 mmol/L (-2-3); HCO3 42 mmol/L (22-26)
[2024-12-28 15:13] LABS: FIO2L 2 L
== END 2024-12-28 15:46 | disposition home or self-care (01) ==
LOC: LBN 15:45
PROVIDERS: PCP Family Medicine; Visit Provider Physician Assistant Surgical
DX: J44.9 Chronic obstructive pulmonary disease, unspecified (principal); J96.91 Respiratory failure, unspecified with hypoxia
CPT/HCPCS: 82805